=== PATIENT | male | born 1940 | race Caucasian/White ===

== ENCOUNTER 2017-07-19 11:04 | Inpatient (IN) | payer MEDICARE ==
[2017-07-19 11:37] LABS: #Basophils 0.1 thou/uL (0.0-0.2); #Eosinphils 0.1 thou/uL (0.0-0.7); #Neutrophils 8.7 thou/uL (1.40-6.50); %Basophils 0.7 % (0.0-1.0); %Eosinophils 0.5 % (0.0-10.0); %Monocytes 9.3 % (0.0-10.0); %Neutrophils 80.6 % (42.0-75.0); Hemoglobin 11.1 g/dL (14.0-18.0); Mean Corpuscular Hemoglobin 31.9 pg (27.0-31.0); Mean Corpuscular Volume 96.8 fl (80.0-94.0); Platelet Count 179 thou/uL (130-400); RBC Distribution Width 13.2 % (11.5-14.5); Red Blood Cell (RBC) Count 3.46 mill/uL (4.70-6.10); White Blood Cell (WBC) Count 10.8 thou/uL (4.8-10.8)
[2017-07-19 11:50] LABS: ALT (SGPT) 16 U/L (8-55); AST (SGOT) 15 U/L (5-34); Albumin 4.2 g/dL (3.4-4.8); Alkaline Phosphatase 56 U/L (40-150); Anion Gap 16 mmol/L (10-20); BUN (Urea Nitrogen) 19 mg/dL (8.4-25.7); Bilirubin, Total 1.5 mg/dL (0.2-1.2); Calc. Creatinine Clearance 0 mL/min (70-130); Calcium 9.9 mg/dL (7.8-10.44); Carbon Dioxide 26 mmol/L (23-31); Chloride 102 mmol/L (98-107); Estimated GFR-MDRD 60; Globulin 2.7 g/dL (2.4-3.5); Glucose 166 mg/dL (83-110); Lipase 34 U/L (8-78); Potassium 3.7 mmol/L (3.5-5.1); Protein, Total 6.9 g/dL (5.8-8.1); Sodium 140 mmol/L (136-145)
[2017-07-19 11:53] LABS: CKMB 0.7 ng/mL (0-6.6); Troponin I 0.021 ng/mL (< 0.028)
--- NOTE | 2017-07-19 12:40 | RAD ---
CHEST ONE VIEW HISTORY: Chest pain. COMPARISON: 12/20/2016 FINDINGS: Cardiac silhouette is magnified by projection and upper limits of normal in size. Pulmonary vasculat ure is more engorged than on the prior study with worsening reticular nodular interstitial prominence . Mediastinum is midline with postoperative changes. No lobar consolidation or pneumothorax are rio arent. 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 IMPRESSION: Worsening congestive heart failure. POS: [facility]
[2017-07-19] MEDS ORDERED: Furosemide 40 MG/4 ML VIAL ONE (13:15)
[2017-07-19 14:33] LABS: INR-International Normal Ratio 1.1; PTT 33.1 SEC (22.9-36.1); Prothrombin Time 14.1 SEC (12.0-14.7)
--- NOTE | 2017-07-19 14:45 | CT ---
NONCONTRAST HEAD CT: History: 30 minute onset of facial droop, left sided. Difficulty speaking. Comparison: None. Technique: Noncontrast head CT is performed from the skull base to the skull vertex. FINDINGS: No parenchymal hemorrhage. No extraaxial hematoma. Basilar cisterns are patent. Brain volume is age appropriate. Cortical holley white matter differentiation is preserved. Ventricles and sulci are patent and symmetric. Periventricular white matter hypodensity due to chronic small vessel ischemic change is noted. Adequate aeration of the right mastoid air cells. Adequate aeration of the paranasal sinuses. Calvari um is intact. Cavernous carotid atherosclerosis is noted. IMPRESSION: No acute intracranial process. No large territory infarct. No evidence of hemorrhage. Results of study discussed with Dr. Wesley 07-19-17 at 2:37 p.m. POS: [facility]
--- NOTE | 2017-07-19 15:33 | CT ---
CT ANGIOGRAM OF HEAD: Date: 07/19/17 HISTORY: Left-sided weakness involving the arm and leg. Left facial droop. Symptoms x30 minutes. COMPARISON: None. TECHNIQUE: CT angiogram of the head is performed in the axial plane. Sagittal and coronal three-dimensional refo rmatted images are submitted for interpretation. FINDINGS: Minimal disease of the right maxillary sinus and left sphenoid sinus. There is partial opacification of the right mastoid air cells. Visualized brain parenchyma is unremarkable. Cortical holley-white matter differentiation is preserved. There is no pathologic enhancement of the brain parenchyma. Visualized upper neck and facial soft tissue structures are unremarkable. Bilateral ocular lenses are appropriately located. Both globes are intact. Retrobulbar fat is preserv ed. Symmetric attenuation of the optic nerves and ocular rectus muscles. No evidence of hydrocephalus. Evaluation for subarachnoid hemorrhage is limited due to the presence o f intra-arterial contrast. CT ANGIOGRAM: Distal cervical and intracranial internal carotid arteries have symmetric enhancement and luminal carolyn meter. There is some atherosclerotic disease involving the right internal carotid artery, incompletel y evaluated. Refer to separate CT angiogram neck report for further details. There is mild atherosclerosis involving both cavernous and left paraclinoid segment. No associated hi gh grade stenosis. Anterior Circulation; There is symmetric enhancement and luminal diameter of the M1 segment. 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 Both A2 segments are symmetri c. Patent anterior communicating artery is identified. Proximal MCA branches are symmetric. Posterior Circulation: The left vertebral artery is dominant. Both vertebral arteries supply a normal appearing basilar gwen ry. The valuation of both PICA artery origins is limited. The left and right P1 segments have symmetr ic enhancement and luminal diameter. IMPRESSION: Unremarkable CT angiogram of the [place]. Results of the CT angiogram of the neck, as well as CT angiogram of head were conveyed to Dr. Chriss partida 07/19/17 at 1513 hours. CODE CR. POS: [facility]
--- NOTE | 2017-07-19 16:10 | CT ---
CT ANGIOGRAM OF THE NECK: Date: 07-19-17 Comparison: None. History: Left sided weakness. Technique: Serial axial CT imaging at 1.0 mm intervals from the thoracic inlet through the skull base with IV co ntrast. Coronal and sagittal 3D reformatted imaging obtained. FINDINGS: Motion limits detailed assessment of the upper lung apices. There is small volume posterior pleural f luid noted in bilateral lung apices. There is an avarant origin of the right subclavian artery, incom pletely imaged on this examination. The intracranial arterial structures are not evaluated on this examination. Please see separately dic tated dedicated CT angiogram of the head. The imaged paranasal sinuses/mastoid air cells demonstrate a few nonspecific opacified mastoid air cells bilaterally as well as mild polypoid mucosal thickening of the alveolar recess on the right. Retroantral fat and the parapharyngeal fat appears clear bilaterally. The parotid and submandibular glands appear grossly unremarkable. No discrete aerodigestive tract lesion is noted. There is a hypodense nodule in the posterior aspect of the left lobe of the thyroid gland measuring 1.6 cm. No lymphadenopathy is noted. Streak artifact and motion limits detailed assessment at the origin of bilateral vertebral arteries. Both vertebral arteries appear patent and grossly unremarkable, the right vertebral artery hypoplasti c and the left vertebral artery dominant. There is no significant stenosis involving the common or internal carotid artery on either side. Ther e is mild scattered atherosclerotic calcification involving the internal carotid artery bilaterally, with no associated hemodynamically significant stenosis on the basis of NASCET criteria. Osseous structures demonstrate significant cervical spine degenerative change, including disc space n arrowing, with posterior osteophyte formation at C5-6 and multilevel bilateral facet and uncal verteb ral osteophyte formation, right greater than left. No worrisome lytic or blastic bone lesion. IMPRESSION: 1. No hemodynamically significant stenosis on the basis of NASCET criteria seen involving either comm on or internal carotid artery. 2. Incidental findings as detailed above, including a hypodense thyroid nodule on the left, for which dedicated thyroid ultrasound is advised. Code T POS: [facility]
[2017-07-19] MEDS ORDERED: Iopamidol 370 76% 100 ML VIAL ONE (17:07)
[2017-07-19] MEDS ORDERED: niCARdipine 20MG in NaCl 200 ML BAG IVPB PRN (17:28)
[2017-07-19] MEDS ORDERED: Bisacodyl 10 MG SUPP PR PRN (17:28)
[2017-07-19] MEDS ORDERED: Mag-Al 1200 mg/1200 mg/30 ML UDCUP PO PRN (17:28)
[2017-07-19] MEDS ORDERED: Docusate 100 MG CAP PO PRN (17:28)
[2017-07-19] MEDS ORDERED: Milk Of Magnesia 30 ML UDCUP PO PRN (17:28)
[2017-07-19] MEDS ORDERED: Dextrose 50% Abboject 50 ML SYRINGE SLOW IVP PRN (17:54)
[2017-07-19] MEDS ORDERED: Dextrose 5% in Water 1,000 ML IV PRN (17:54)
[2017-07-19] MEDS ORDERED: Furosemide 40 MG/4 ML VIAL SLOW IVP SCH (18:30)
[2017-07-19] MEDS ORDERED: niCARdipine HCl 25 MG in Sodium Chloride 0.9% 250 ML 240 ML IVPB PRN (18:45)
[2017-07-19] MEDS ORDERED: niCARdipine HCl 25 MG in Sodium Chloride 0.9% 250 ML 240 ML IVPB SCH (18:45)
--- NOTE | 2017-07-19 18:46 | HP ---
PRIMARY CARE PROVIDER: Cassie Lynn M.D. CHIEF COMPLAINT: Weakness. HISTORY OF PRESENT ILLNESS: Mr. Melina Jr is a pleasant 77-year-old gentleman, who was seen at [facility] on 07/19/2017 following transfer from [facility]. He initially presented to the emergency room complaining of shortness of breath. He told the m that he has been having difficulty sleeping because of shortness of breath. The patient was report edly unable to eat last night and today because he was not feeling well. He also reported some chest discomfort and generalized weakness as well as cough. The patient was managed in the emergency room, and decision was made to admit him to the hospital for further management of congestive heart failure. Following that, he developed left-sided weakness. He received tPA after discussion with Neurology. He was then transferred to the Critical Care Unit a [facility]. REVIEW OF SYSTEM: The following complete review of systems was negative, unless otherwise mentioned in the HPI or below: Constitutional: Weight loss or gain, sense of well-being, ability to conduct usual activities, exerc ise tolerance. Skin/Breast: Rash, itching, changes in hair growth or loss, nail changes, breast lumps, tenderness, swelling, nipple discharge. Eyes: Vision, double vision, tearing, blind spots, pain. ENT/Mouth: Headaches (location, time of onset, duration, precipitating factors), vertigo, lightheade dness, injury. Vision, double vision, tearing, blind spots, pain, nose bleeding, colds, obstruction, discharge, dental difficulties, gingival bleeding, dentures, neck stiffness, pain, tenderness, masses in thyroid or other areas Cardiovascular: Precordial pain, substernal distress, palpitations, syncope, dyspnea on exertion, or thopnea, nocturnal paroxysmal dyspnea, edema, cyanosis, hypertension, heart murmurs, varicosities, ph lebitis, claudication. Respiratory: Pain, shortness of breath, wheezing, stridor, cough, hemoptysis, fever or night sweats. Gastrointestinal: Poor appetite, dysphagia, indigestion, abdominal pain, heartburn, eructation, naus ea, vomiting, hematemesis, jaundice, constipation, or diarrhea, abnormal stools (vika-colored, tarry, bloody, greasy, foul smelling), flatulence, hemorrhoids, recent changes in bowel habits. Genitourinary: Urgency, frequency, dysuria, nocturia, hematuria, polyuria, oliguria, unusual (or nirmala nge in) color of urine, stones, hesitancy, change in size of stream, dribbling, acute retention or in continence, libido, potency. Musculoskeletal: Pain, swelling, redness or heat of muscles or joints, limitation, of motion, muscular weakness, atrophy, cramps. Neurologic/Psychiatric: Convulsions, paralyses, tremor, incoordination, paresthesias, difficulties w ith memory of speech, sensory or motor disturbances, or muscular coordination (ataxia, tremor), emoti onal problems, anxiety, depression, previous psychiatric care, unusual perceptions, hallucinations. Allergy/Immunologic: Skin rash, anemia, bleeding tendency, polydipsia, polyuria, intolerance to heat or cold. PAST MEDICAL HISTORY: Significant for diastolic congestive heart failure, hypertension, diabetes chloe litus type 2, COPD, coronary artery disease, status post cardiac stent placement, chronic kidney dise ase stage 2, and dyslipidemia. PAST SURGICAL HISTORY: Significant for cardiac stent, coronary artery bypass graft, appendectomy, ch olecystectomy, bilateral cataract removal, polypectomy. FAMILY HISTORY: Patient's uncle had myocardial infarction in his 50s. SOCIAL HISTORY: No history of tobacco use, alcohol use, or recreational drug use. ALLERGIES: No known drug allergies. CURRENT MEDICATIONS: Include Lasix 40 mg daily, potassium chloride 10 mEq 2 times a day, Januvia 50 mg daily, Crestor 20 mg daily, Theragran 1 tablet daily, Toprol-XL 200 mg daily, metformin 1000 mg 2 times a day, lisinopril 20 mg 2 times a day, isosorbide mononitrate 30 mg 2 times a day, Flonase p.r. n., albuterol inhalation p.r.n., Effient 10 mg daily, aspirin 81 mg daily, MiraLax 17 grams daily as needed, Coenzyme Q10 100 mg daily, Zyrtec 10 mg daily, glyburide 2.5 mg 2 times a day, Systane eyedro ps as needed, Centrum Silver 1 tablet daily, Dexilant 30 mg daily, Zetia 10 mg daily, extra strength Tylenol 1000 mg every 6 hours as needed, Apresoline 50 mg 3 times a day, Lomotil as needed, Symbicort 1 puff 2 times a day, loratadine 10 mg daily, Ranexa 1000 mg 2 times a day, Linzess 145 mcg daily, a nd amlodipine 5 mg daily. CODE STATUS: I could not discuss code status because it was difficult to hold a conversation with Mr Vivi Summers. PHYSICAL EXAMINATION: GENERAL: Mr. Summers is awake and alert, not in acute distress. VITAL SIGNS: Blood pressure is 146/63, pulse is 78. He is breathing at rate of 20 and saturating 88 % on room air. EYES: No scleral icterus. No conjunctival pallor. ENT: Moist mucosal membranes, no oropharyngeal erythema or exudates. NECK: Supple, nontender, no thyromegaly. Trachea is midline. RESPIRATORY: Accessory muscles of breathing are not active. Chest wall movements are symmetric bila terally. Lung examination reveals bibasilar crackles. CARDIOVASCULAR: S1 and S2 are heard, regular. Peripheral pulses palpable. No carotid bruit, no per icardial rub. ABDOMEN: Soft, nontender, bowel sounds heard, no hepatomegaly, no splenomegaly. 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 Tongue deviates to th e left. He has hemiplegia on the left upper and lower extremities. Deep tendon reflexes are brisk o n the left side. Plantar reflexes equivocal on the left, downgoing on the right. MUSCULOSKELETAL: Left-sided hemiplegia. Power is 5/5 in the right upper and lower extremities. LYMPHATIC: No cervical lymphadenopathy. SKIN: No rashes or subcutaneous nodules. He has bilateral lower extremity edema. PSYCHIATRIC: The patient appears anxious, oriented to person, place, and time. LABORATORY DATA: Mr. Summers's labs and investigations were reviewed. I reviewed his electrocardio gram, which showed atrial fibrillation with controlled ventricular response. I also reviewed his [facility] st x-ray, which showed pulmonary vascular congestion and interstitial edema. CT scan of the brain do ne without contrast did not reveal any acute intracranial processes. CT [place] angiography with contrast was unremarkable. CT angiogram of the neck did not reveal any hemodynamically signifi cant stenosis in either common or internal carotid artery. He had a hypodense thyroid nodule on the left, for which the radiologist recommends dedicated thyroid ultrasound. Laboratory investigation sh ow a normal white count, macrocytic anemia with hemoglobin of 11.1, normal platelet count, INR 1.1, u nremarkable comprehensive metabolic profile, except for a mildly elevated total bilirubin of 1.5, armen vated BNP of 572.1, and normal troponin I. ASSESSMENT AND PLAN: Mr. Melina Jr is a pleasant 77-year-old gentleman, who was seen at [facility] on 07/19/2017. His problem list includes: 1. Acute cerebrovascular accident. Mr. Summers is presenting with acute cerebrovascular accident. He is receiving tPA. He will be admitted to the hospital for further management. No blood draws fo r 24 hours. We will start him on aspirin after the 24-hour period. Neurology service will be consul miriam for help with further management. I will request 2D echocardiogram and MRI of the brain. 2. Congestive heart failure exacerbation: Patient has a history of diastolic congestive heart failu re. He will be treated with intravenous diuretics. 3. Diabetes mellitus. Continue patient's home medications while the doses are clarified, start Accu -Cheks and insulin sliding scale. 4. Hypertension: Monitor vital signs, titrate antihypertensives as needed. 5. Chronic obstructive pulmonary disease. Continue bronchodilators. 6. Dyslipidemia: Continue statins. Many thanks for allowing me to participate in your patient's care. Please feel free to contact me wi th any questions or concerns. LEVEL OF RISK: High. LEVEL OF COMPLEXITY: High. ADDENDUM: Mr. Melina Cantor also appears to have new onset atrial fibrillation. I reviewed his old records and could not find any documented evidence of atrial fibrillation. We will await Cardiology Service.
[2017-07-19] MEDS: Labetalol HCl 100 MG/20 ML VIAL SLOW IVP PRN (21:43)
--- NOTE | 2017-07-19 23:38 | CON ---
DATE OF CONSULTATION: 07/19/2017 REFERRING PROVIDER: Dr. Bhavesh Chambers. REASON FOR CONSULTATION: Acute onset left-sided weakness and dysarthria. HISTORY OF PRESENT ILLNESS: Mr. Summers is a pleasant 77-year-old male who has been shana rned for evaluation of left-sided weakness and dysarthria. Apparently, the patient has not been feel ing well over the past 1-2 days. He was having difficulty with breathing and chest discomfort. For this reason, he had gone to the [facility] in where he was evaluated. It was felt that he wa s in a CHF exacerbation. While over there, he had developed sudden onset of left-sided weakness and dysarthria for which stroke alert was initiated. ER physician had called and discussed the case with me and I have recommended for him to start on IV tPA. He had met all the inclusion and exclusion cr iteria for the tPA. CT scan was negative in the ER. Currently, he reports of having some improvemen t in his left lower extremity. He continues to have weakness in the left upper extremity. He also c ontinues to have slurred speech. He denies headache, chest pain, palpitation, nausea, vomiting, abdo jaime pain, lightheadedness, or dizziness. PAST MEDICAL HISTORY: Significant for hypertension, congestive heart failure, diabetes, COPD, hop[place] ry artery disease, cardiac stent placement, chronic kidney disease stage 2, and dyslipidemia. PAST SURGICAL HISTORY: Significant for cardiac stent placement, coronary artery bypass graft, append ectomy, cholecystectomy, bilateral cataract surgery, and polypectomy. FAMILY HISTORY: None significant. SOCIAL HISTORY: He denies smoking, alcohol use, or illicit drug use. He is . CURRENT MEDICATIONS: Please review MAR. ALLERGIES: No known drug allergies. REVIEW OF SYSTEMS: As mentioned above in the HPI, otherwise negative. PHYSICAL EXAMINATION: VITAL SIGNS: Blood pressure of 174/84, pulse of 85, temperature of 99.6, respiration of 23, O2 sats of 93% on room air. GENERAL: Well-developed, well-nourished male in no apparent distress. RESPIRATORY: Clear to auscultation bilaterally. CARDIOVASCULAR: Regular rate and rhythm. NEUROLOGIC: Mental status: The patient is awake, alert, oriented x3. Speech and language: Mildly dysarthric speech noted. Cranial nerves: Pupils are 3 mm and reactive. Visual linn: He does not blink to threat on the left side. Extraocular muscles are intact. No nystagmus is noted. There is a left facial droop noted. Tongue and uvula are midline. Motor exam showed flaccid left upper and left lower extremity. His strength in the left upper extremity is 0/5, strength in the left lower ex tremity is 2/5. Sensory: Sensation appears intact and symmetric. Deep tendon reflexes 1+ reflex in both upper and lower extremities. Babinski: Plantar responses extensor on the left, flexion on the right. Gait and Romberg coordination could not be tested. LABORATORY DATA: Reviewed, which included CBC, CMP, coag panel, CK-MB, troponin, BNP which is signif icant for hemoglobin of 11.1, hematocrit of 33.5. BNP of 572.1 otherwise negative. IMAGING STUDIES: CT head without contrast was reviewed which showed no acute intracranial abnormalit y. CT angiogram of the head was reviewed which showed no acute intracranial vascular abnormality. IMPRESSION: 1. Right middle cerebral artery distribution ischemic infarct. 2. Left-sided weakness, due to #1. 3. Dysarthria, due to #1. 4. Hypertension. ASSESSMENT AND PLAN: Mr. Summers is a pleasant 77-year-old male who presented with conges tive heart failure exacerbation and was noted to have sudden onset of left-sided weakness and dysarth rashaad. After discussing the case with the ER physician, I had initiated IV tPA. Since his CT angiogra m did not show any intracranial vascular abnormality, he was not a candidate for any endovascular th erapy. At this time, I will recommend admitting her to the Critical Care Unit for close observation. I will recommend consulting PT, OT, Speech Therapy. He needs to be n.p.o. until further cleared by Speech Therapy. I would recommend holding off on all the antiplatelet or anticoagulation therapy fo r at least 24 hours post-tPA. Obtain MRI brain without contrast in the morning. Obtain echocardiogr am and lipid profile in the morning. Monitor for any acute neurological changes over the next 24 mich rs. I have discussed the findings with the patient's and explained the current treatment plan. She voiced her understanding. Thank you for your consultation.
[2017-07-20] MEDS: Furosemide 40 MG/4 ML VIAL SLOW IVP SCH ×2 (05:16→14:35)
--- NOTE | 2017-07-20 09:59 | PDOC.PN ---
- Subjective Encounter Start Date: 07/20/17 Encounter Start Time: 10:45 Subjective: Patient with persisent weakness on left side of body. Breathing well on -: oxygen. No LION. No bleeding. - Objective Resuscitation Status: Resuscitation Status DNR:Do Not Resuscitate MAR Reviewed: Yes Vital Signs & Weight: Vital Signs (12 hours) Temp Pulse Resp Pulse Ox 07/20/17 09:00 98.7 F 07/20/17 08:00 98.7 F 88 22 H 98 07/20/17 07:17 100 07/20/17 04:00 98.2 F 07/20/17 01:25 97 07/20/17 00:00 98.5 F Weight Weight 226 lb 12.8 oz Most Recent Monitor Data Heart Rate from ECG 82 NIBP 169/86 NIBP BP-Mean 108 Respiration from ECG 23 SpO2 95 I&O: 07/19/17 07/20/17 07/21/17 06:59 06:59 06:59 Intake Total 0 0 Output Total 2770 450 Balance -2770 -450 Result Diagrams: 07/19/17 11:29 07/19/17 11:29 Additional Labs: Accuchecks 07/19/17 14:42 POC Glucose 139 H Phys Exam - Physical Examination Constitutional: NAD HEENT: moist MMs Respiratory: no wheezing, no rales, no rhonchi Cardiovascular: RRR, no significant murmur Gastrointestinal: soft, positive bowel sounds left facial droop, LUE with minimal movement, LLE moves toes, 2/5 in thigh Psychiatric: normal affect, A&O x 3 Dx/Plan (1) Acute ischemic stroke Code(s): I63.9 - CEREBRAL INFARCTION, UNSPECIFIED Status: Acute Comment: s/ p TPA on 07/19/2017 (2) Diastolic CHF, acute on chronic Code(s): I50.33 - ACUTE ON CHRONIC DIASTOLIC (CONGESTIVE) HEART FAILURE Status : Acute (3) DM type 2 (diabetes mellitus, type 2) Status: Chronic Qualifiers: Diabetes mellitus complication status: with hyperglycemia (4) COPD (chronic obstructive pulmonary disease) Status: Chronic (5) Hypertension Code(s): I10 - ESSENTIAL (PRIMARY) HYPERTENSION Status: Chronic (6) Dyslipidemia Code(s): E78.5 - HYPERLIPIDEMIA, UNSPECIFIED Status: Chronic - Plan cont current plan of care continue IV diuretics, safe to move to stroke floor, resume anticoagulants -: when ok with neurology * . - Discharge Day Encounter end time: 11:15
--- NOTE | 2017-07-20 10:21 | CON ---
DATE OF CONSULTATION: 07/20/2017 REASON FOR CONSULTATION: Critical care management. HISTORY OF PRESENT ILLNESS: The patient is a 77-year-old male, who was admitted to the [facility] yesterday. He was initially seen in the Emergency Room for shortness of breath, but then deve loped left-sided hemiparesis and dysarthria. The patient received TPA, but did not have resolution o f the symptoms. He was placed in the CCU for further observation. This morning, he is able to verba lize, but he is very hard to understand, because of dysarthria. He is not having any chest pain or s hortness of breath at this time. He is completely incapable of moving his left arm, but can move his left leg a little. PAST MEDICAL HISTORY: 1. Diastolic cardiac dysfunction. 2. Hypertension. 3. Diabetes mellitus, type 2. 4. Chronic obstructive pulmonary disease. 5. Coronary artery disease. 6. Coronary stent placement. 7. Chronic kidney disease, stage 2. 8. Hyperlipidemia. PAST SURGICAL HISTORY: 1. Coronary stent placement. 2. Coronary artery bypass grafting surgery. 3. Appendectomy. 4. Cholecystectomy. 5. Bilateral cataract removal. 6. Polypectomy. FAMILY MEDICAL HISTORY: Remarkable for heart disease. SOCIAL HISTORY: Does not smoke, does not consume alcohol, does not use recreational drugs. He is re tired; he formerly worked in [employer]. ALLERGIES: None. MEDICATIONS: Prior to admission, these were reviewed on the chart and include Lasix, potassium, Ayo via, Crestor, Theragran M, Toprol-XL, metformin, lisinopril, isosorbide, Flonase, albuterol, Effient, aspirin, MiraLax, Coenzyme Q10, Zyrtec, glyburide, Systane eye drops, Centrum, Dexilant, Zetia, Apre soline, Lomotil, Symbicort, loratadine, Ranexa, Linzess, and amlodipine. CODE STATUS: He is DNR. REVIEW OF SYSTEMS: He has had no chest pain, hematemesis, melena, hematochezia, hematuria, or dysuri a. PHYSICAL EXAMINATION: VITAL SIGNS: Temperature 98.2, pulse 82, blood pressure 165/88, O2 sat 97%. GENERAL: He is awake and alert and in no distress. HEENT EXAM: Unremarkable. NECK: Without adenopathy or JVD. LUNGS: Have a few crackles bilaterally. CARDIOVASCULAR: S1, S2 regular, without murmur. ABDOMEN: Soft, nontender, nondistended. EXTREMITIES: No clubbing, cyanosis, or edema. NEUROLOGIC EXAM: He is completely immobile in his left arm. He has 2/5 muscle strength in his left leg. He has full muscle strength in his right arm and right leg. He has sensation intact in his lef t arm and left leg and full sensation otherwise throughout the body. LABORATORY DATA: White blood cell count 10.8, hematocrit 33.5, platelet count 179. INR 1.1. Sodium 140, potassium 3.7, chloride 102, CO2 of 26, BUN 19, creatinine 1.2, glucose 166. BNP 572. His dusty st x-ray at the time of admission showed diffuse congestion. ASSESSMENT: 1. Cerebrovascular accident -- has a right middle cerebral artery infarct. 2. Congestive heart failure -- acute diastolic. 3. Multiple other medical problems as listed above. PLAN: I believe he can be safely transferred to the stroke unit for further evaluation. We will shauna it the opinion of Cardiology. He is having anticoagulation withheld at the advice of Dr. Argueta. Base d on that, I will withhold the enoxaparin and the aspirin until he is cleared to restart. Sequential compression devices will be applied.
[2017-07-20] MEDS ORDERED: Loratadine 10 MG TAB PO PRN (11:24)
[2017-07-20] MEDS ORDERED: Polyethylene Glycol 3350 17 GM Packet PO PRN (11:24)
[2017-07-20] MEDS ORDERED: Fluticasone Propionate Nasal Spray 16 gm Bottle NASAL PRN (11:24)
[2017-07-20] MEDS ORDERED: PROVENTIL INHALER 6.7 G (200 INHALATIONS) INH PRN (11:24)
--- NOTE | 2017-07-20 16:18 | PRG ---
DATE OF SERVICE: 07/20/2017 SUBJECTIVE: Mr. Summers is a pleasant 77-year-old male who presented with the acute onset left-sided weakness. He is now status post IV TPA. He reports of no significant change in his stre ngth of the left upper and left lower extremity. He has noted some improvement in his speech and swa llowing. He denies any headache, chest pain, palpitation, lightheadedness or dizziness. PHYSICAL EXAMINATION: VITAL SIGNS: Blood pressure 153/77, pulse of 86, temperature of 98.2, respirations of 21, O2 sats of 95% on room air. GENERAL: Well-developed, well-nourished male in no apparent distress. RESPIRATORY: Clear to auscultation bilaterally. CARDIOVASCULAR: Regular rate and rhythm. NEUROLOGIC: Essentially unchanged. IMPRESSION: 1. Acute right middle cerebral artery distribution ischemic infarct. 2. Left-sided weakness, due to #1. 3. Hypertension. ASSESSMENT AND PLAN: Mr. Summers is a pleasant 77-year-old male who presented with an acu te onset left-sided weakness. He is now status post IV TPA. At this time, I would recommend continu ing supportive care. Continue physical, occupational, and speech therapies. The patient can be star miriam on Plavix 75 mg daily after the 24 hours completion of IV TPA. The patient is okay to be transfe rred to the stroke unit. We will await the results of the MRI. Thank you for your consultation.
[2017-07-20] MEDS: metFORMIN 500 MG TAB PO SCH (17:40)
[2017-07-20] MEDS: Potassium Chloride 10 MEQ TAB PO SCH (18:13)
--- NOTE | 2017-07-20 19:46 | MRI ---
EXAM: BRAIN MRI WITHOUT CONTRAST 07/20/17 HISTORY: Evaluate for stroke. Left sided facial droop and slurred speech. Status post TPA. COMPARISON: None. TECHNIQUE: Brain MRI is performed without intravenous gadolinium administration. Multisequential, multiplanar im aging is performed. FINDINGS: There is evidence of focal effacement with T2 and FLAIR hyperintensity involving the posterior right frontal lobe and right temporal lobe. On the axial gradient echo sequence, there is evidence of hypoi ntensity suggesting hemorrhage. There is no corresponding hyperintensity on the T1 weighted images. D ifferential considerations include petechial hemorrhage versus hyperacute parenchymal hemorrhage. Rep eat noncontrast head CT is recommended. There is evidence of restricted diffusion in the aforemention ed area of T2 and FLAIR hyperintensity, compatible with an acute right MCA distribution infarction. A dditional areas of restricted diffusion are not appreciated. There are T2 and FLAIR white matter hyperintensity due to chronic small vessel ischemic change. No hy drocephalus. Brain volume is age appropriate. IMPRESSION: 1. Acute right MCA distribution infarction. 2. Gradient echo sequence hypointensity in the region of infarct which may represent macroscopic hemorrhage versus petechial hemorrhage. Noncontrast head CT is recommended. Results of the study discussed with Dr. Bhavesh Chambers, 07/20/17 at 5:01 p.m. Code CR POS: LAVON
[2017-07-20] MEDS: Mometasone/Formoterol 120 PUFF INHALER INH SCH (19:49)
[2017-07-20 19:53] LABS: #Eosinphils 0.1 thou/uL (0.0-0.7); #Lymphocytes 1.6 thou/uL (1.20-3.40); #Neutrophils 7.1 thou/uL (1.40-6.50); %Basophils 0.3 % (0.0-1.0); %Eosinophils 0.9 % (0.0-10.0); %Neutrophils 72.8 % (42.0-75.0); Hemoglobin 13.3 g/dL (14.0-18.0); Mean Corpuscular Hemoglobin 33.4 pg (27.0-31.0); Mean Corpuscular Volume 98.2 fl (80.0-94.0); Mean Platelet Volume 7.5 fL (7.4-10.4); Platelet Count 202 thou/uL (130-400); RBC Distribution Width 13.8 % (11.5-14.5); Red Blood Cell (RBC) Count 3.98 mill/uL (4.70-6.10); White Blood Cell (WBC) Count 9.8 thou/uL (4.8-10.8)
[2017-07-20] MEDS ORDERED: Enoxaparin Sodium 40 MG/0.4 ML SYRINGE SC SCH (21:00)
[2017-07-20] MEDS ORDERED: Non-Formulary Item 1 EACH (Budesonide-Formoterol [Symbicort 160-4.5] 1 PUFF) INH SCH (21:00)
[2017-07-20] MEDS ORDERED: Lisinopril 10 MG TAB PO SCH (21:00)
[2017-07-20] MEDS ORDERED: Aspirin 325 mg Enteric Coated Tablet PO SCH (21:00)
--- NOTE | 2017-07-20 21:44 | CT ---
CT BRAIN 07/20/17 PROVIDED CLINICAL HISTORY: Possible bleed seen on MRI. FINDINGS: Comparison is made with the CT examination 07/19/17 and the brain MRI performed earlier same date. Within the right posterior frontal white matter and extending to involve the cortical and subcortical adjacent regions with an area of diminished attenuation that is in the same location as the restrict ed diffusion seen on the recent MRI and compatible with an acute infarction. This change is interval with respect to the 07/19/17 CT brain. There is a focal area of CT density which is increased with re spect to the peripheral hypodensity in this area of infarction but essentially isointense with respec t to the remaining adjacent cerebral white matter. Given that there is blooming in this region presen t on the gradient echo sequence from the MRI, this likely reflects petechial/microhemorrhage related to the infarction. The ventricular system remains normal in size and morphology. No additional signif icant interval change with respect to the prior exam is evident. IMPRESSION: Findings compatible with the known acute infarction in the right posterior frontal region. Blooming s een in this region on the gradient echo sequence from MRI done earlier today likely reflects petechia l/microhemorrhage. There is no evidence for a well formed intraparenchymal hematoma at this time. Fol lowup CT examination in 12 hours may be useful to assessment for temporal evolution. POS: LAVON
--- NOTE | 2017-07-20 21:44 | CON ---
CARDIOLOGY CONSULTATION NOTE DATE OF CONSULTATION: 07/20/2017 REASON FOR CONSULTATION: Recent stroke. 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 Marie. HISTORY OF PRESENT ILLNESS: Mr. Waldo Summers is a very pleasant gentleman with a long history of coronary artery disease. He has undergone multiple procedures with multiple stent implantations and also had bypass surgery. Please see the chart for full details on his coronary artery disease. The patient was admitted to the hospital on 07/19/2017 with acute onset of left-sided weakness, found to have a stroke. He did receive TPA. REVIEW OF SYSTEMS: Constitutional: No significant weight gain or loss. Vision: No changes. Heari ng: No changes. Pulmonary: No cough or wheezing. Cardiac: No chest pain or pressure. Gastrointe stinal: No nausea, vomiting or diarrhea. Skin: No rashes. Neurologic: No unilateral weakness or numbness. Psychiatric: No unusual depression or anxiety. PAST MEDICAL HISTORY: 1. Coronary artery disease, multiple stents implanted. 2. Previous history of bypass. 3. Chronic kidney disease stage 2. PAST SURGICAL HISTORY: Previous stenting and coronary artery bypass grafting. FAMILY HISTORY: Myocardial infarction in the 50s in an uncle. SOCIAL HISTORY: No alcohol or tobacco. MEDICATIONS: Prior to admission; 1. Lasix. 2. Potassium. 3. Januvia. 4. Crestor. 5. Toprol-XL. 6. Lisinopril. 7. Isosorbide. 8. Flonase. 9. Effient. 10. Aspirin. 11. Dexilant. It is also noted that he has had paroxysmal atrial fibrillation noted in the past. PHYSICAL EXAMINATION: GENERAL: This is a pleasant elderly gentleman in no distress, not moving the left side. VITAL SIGNS: Blood pressure 168/98 and pulse 86 regular. EYES: Sclerae nonicteric. MOUTH: Mucous membranes moist. NECK: Supple. No lymphadenopathy. LUNGS: Clear. No wheezing, rales or rhonchi. CARDIOVASCULAR: Normal S1, normal S2. There is no murmur, rub or gallop. ABDOMEN: Soft and nontender. EXTREMITIES: No clubbing, no cyanosis, no edema. NEUROLOGIC: Not moving the left side. LABORATORY AND X-RAY FINDINGS: CT shows ischemic stroke with what appears to be some micro-hemorrhag e. ASSESSMENT: 1. Stroke, suspected embolic, some previous history of atrial fibrillation. 2. Some microscopic bleeding; therefore, cannot be anticoagulated at this time. 3. Hypertension. 4. Coronary artery disease. PLAN: Resume some of the blood pressure medicines. We will reinstitute Dr. Marie to the patient tomorrow.
[2017-07-21] MEDS: Labetalol HCl 100 MG/20 ML VIAL SLOW IVP PRN (05:18)
[2017-07-21] MEDS: Furosemide 40 MG/4 ML VIAL SLOW IVP SCH ×2 (05:25→15:31)
[2017-07-21] MEDS: Mometasone/Formoterol 120 PUFF INHALER INH SCH ×2 (06:23→19:00)
[2017-07-21 06:37] LABS: #Eosinphils 0.1 thou/uL (0.0-0.7); #Lymphocytes 1.5 thou/uL (1.20-3.40); #Monocytes 1.4 thou/uL (0.11-0.59); #Neutrophils 9.3 thou/uL (1.40-6.50); %Basophils 0.3 % (0.0-1.0); %Eosinophils 0.6 % (0.0-10.0); %Lymphocytes 11.9 % (21.0-51.0); %Monocytes 11.1 % (0.0-10.0); %Neutrophils 76.2 % (42.0-75.0); Hemoglobin 13.7 g/dL (14.0-18.0); Mean Corpuscular HGB CONC 32.6 g/dL (32.0-36.0); Mean Corpuscular Hemoglobin 31.8 pg (27.0-31.0); Mean Corpuscular Volume 97.7 fl (80.0-94.0); Mean Platelet Volume 8.3 fL (7.4-10.4); Platelet Count 186 thou/uL (130-400); RBC Distribution Width 13.8 % (11.5-14.5); White Blood Cell (WBC) Count 12.2 thou/uL (4.8-10.8)
[2017-07-21] MEDS: HumaLOG 300 UNITS/3 ML VIAL SC PRN (06:40)
[2017-07-21 06:57] LABS: Anion Gap 18 mmol/L (10-20); BUN (Urea Nitrogen) 18 mg/dL (8.4-25.7); Calc. Creatinine Clearance 80 mL/min (70-130); Calcium 10.2 mg/dL (7.8-10.44); Carbon Dioxide 23 mmol/L (23-31); Cardiac Risk 4.5 (Less than 4.5); Chloride 102 mmol/L (98-107); Cholesterol 150 mg/dl (< 200 Desired); Estimated GFR-MDRD 61; Glucose 215 mg/dL (83-110); HDL Cholesterol 33 mg/dL (>60 Neg Risk); LDL Cholesterol, Calculated 94 mg/dL; Potassium 3.1 mmol/L (3.5-5.1); Sodium 140 mmol/L (136-145); Triglycerides 116 mg/dL (Less than 150)
[2017-07-21] MEDS ORDERED: Furosemide 40 MG TAB PO SCH (07:30)
--- NOTE | 2017-07-21 07:35 | PDOC.PN ---
- Subjective Encounter Start Date: 07/21/17 Encounter Start Time: 07:40 Subjective: Patient without new complaint. Left side of body now completely flaccid. - Objective Resuscitation Status: Resuscitation Status DNR:Do Not Resuscitate MAR Reviewed: Yes Vital Signs & Weight: Vital Signs (12 hours) Temp Pulse Resp BP BP BP Pulse Ox 07/21/17 06:55 178/84 H 07/21/17 05:18 58 L 182/84 H 07/21/17 04:50 97.8 F 58 L 20 182/84 H 91 L 07/21/17 01:15 98.4 F 98 18 182/96 H 93 L 07/20/17 21:16 184/102 H 07/20/17 20:51 98.1 F 67 16 184/102 H 97 07/20/17 19:49 86 16 98 Weight Weight 230 lb 3.2 oz Most Recent Monitor Data Heart Rate from ECG 93 NIBP 160/84 NIBP BP-Mean 95 Respiration from ECG 20 SpO2 96 I&O: 07/20/17 07/21/17 07/22/17 06:59 06:59 06:59 Intake Total 0 600 Output Total 2770 2100 Balance -2770 -1500 Result Diagrams: 07/21/17 06:17 07/21/17 06:17 Additional Labs: Accuchecks 07/21/17 07/20/17 06:28 21:46 POC Glucose 237 H 232 H Phys Exam - Physical Examination Constitutional: NAD dry mucus membranes Respiratory: no wheezing, no rales, no rhonchi Cardiovascular: RRR, no significant murmur Gastrointestinal: soft, positive bowel sounds Musculoskeletal: no edema LUandLE completely flaccid this AM, left facial droop Psychiatric: normal affect, A&O x 3 Dx/Plan (1) Acute ischemic stroke Code(s): I63.9 - CEREBRAL INFARCTION, UNSPECIFIED Status: Acute Comment: s/ p TPA on 07/19/2017, microhemorrhage on MRI 07/20/17, holding anticoagulants for now (2) Diastolic CHF, acute on chronic Code(s): I50.33 - ACUTE ON CHRONIC DIASTOLIC (CONGESTIVE) HEART FAILURE Status : Acute (3) DM type 2 (diabetes mellitus, type 2) Status: Chronic Qualifiers: Diabetes mellitus complication status: with hyperglycemia (4) COPD (chronic obstructive pulmonary disease) Status: Chronic (5) Hypertension Code(s): I10 - ESSENTIAL (PRIMARY) HYPERTENSION Status: Chronic (6) Dyslipidemia Code(s): E78.5 - HYPERLIPIDEMIA, UNSPECIFIED Status: Chronic (7) Hypokalemia Code(s): E87.6 - HYPOKALEMIA Status: Acute Comment: resumed home potassium and will give IV infusion - Plan cont current plan of care, DVT proph w/SCDs recheck CT to make sure no progression of bleeding. * . - Discharge Day Encounter end time: 08:20
[2017-07-21] MEDS ORDERED: Potassium Chloride 20 MEQ/100 ML PREMIX BAG IVPB SCH (07:45)
[2017-07-21] MEDS ORDERED: Potassium Chloride 20 MEQ in Sodium Chloride 0.9% 250 ML 250 ML IVPB SCH (08:15)
--- NOTE | 2017-07-21 09:29 | CT ---
CT OF THE BRAIN WITHOUT CONTRAST: INDICATION: Status post TPA with intercerebral bleed. COMPARISON: CT of the brain dated 07/20/17 at 5:57 p.m. FINDINGS: The small intracerebral hemorrhage involving the right frontal lobe has slightly increased in size pr edominantly due to surrounding vasogenic edema. The bleed and edema focus now measures 4.2 x 3.3 cm where it previously measured 3.8 x 2.6 cm. No midline shift is evident. Septum pellucidum and third ventricle are midline. Chronic small-vessel white matter ischemic changes similar. There is a smal l partial right mastoid effusion which is stable. There are vascular calcifications involving the in tracranial arteries. IMPRESSION: Slight interval increase in size of the right intracerebral hemorrhage involving the right frontal lo be, the majority of which is related to worsening vasogenic edema. Continued followup is recommended . POS: LAVON
--- NOTE | 2017-07-21 09:42 | PRG ---
DATE OF SERVICE: 07/21/2017 He had a fever last night. The reports 104, but 100.5 is what is listed in the chart. PHYSICAL EXAMINATION: VITAL SIGNS: Pulse is 95, respiration is 24, O2 sat 97%, blood pressure 165/72. HEENT: Unremarkable. NECK: No adenopathy or JVD. LUNGS: Clear. CARDIOVASCULAR: S1, S2 regular. ABDOMEN: Soft. EXTREMITIES: He has left-sided hemiparesis. Brain CT demonstrates the right-sided infarct. LABORATORY DATA: White blood cell count 12, hematocrit 42, platelet count 186. Sodium 140, potassiu m 3.1, chloride 102, CO2 23, BUN 18, creatinine 1.2, glucose 215. ASSESSMENT: 1. Large cerebrovascular accident. 2. Status post acute respiratory failure. 3. Acute diastolic congestive heart failure. 4. Low-grade fever. RECOMMENDATION: 1. Repeat chest x-ray to rule out aspiration pneumonia. 2. Speech therapy. 3. Physical therapy and occupational therapy.
[2017-07-21] MEDS: metFORMIN 500 MG TAB PO SCH ×2 (09:54→16:16)
[2017-07-21] MEDS: Potassium Chloride 10 MEQ TAB PO SCH ×2 (09:54→16:16)
[2017-07-21] MEDS: Amlodipine 5 MG TAB PO SCH (09:55)
[2017-07-21] MEDS: Folic Acid 1 MG TAB PO SCH (09:55)
[2017-07-21] MEDS: Lisinopril 20 MG TAB PO SCH ×2 (09:55→20:40)
[2017-07-21] MEDS: Ubidecarenone 50 MG CAP PO SCH (09:56)
[2017-07-21] MEDS: Acetaminophen 325 MG TAB PO PRN (09:56)
--- NOTE | 2017-07-21 10:05 | RAD ---
PORTABLE CHEST: History: Fever, aspiration. Comparison: 07-19-17 FINDINGS: Heart size is enlarged. There are post op sternotomy changes. Vascular engorgement changes appear imp roved as compared to the prior exam suggesting some resolving edema. There are some bibasilar lung ch anges, slightly greater in the right base. This could be on the basis of resolving edema and atelecta sis. No definite confluent infiltrative process seen. IMPRESSION: Resolving pulmonary edema change. POS: TPC
--- NOTE | 2017-07-21 11:31 | PDOC.PULPN ---
Subjective/Objective - Subjective Date: 07/21/17 Time: 11:30 Subjective: the patient is having difficulty with fever and is having some difficulty with swallowing - ROS Review of Systems: cough, congestion, shortness of breath - Objective Allergies/Adverse Reactions: Allergies Allergy/AdvReac Type Severity Reaction Status Date / Time No Known Allergies Allergy Verified 12/15/16 14:30 Medications: Current Medications Acetaminophen (Tylenol) 650 mg PO Q6H PRN PRN Reason: Headache/Fever or Pain Last Admin: 07/21/17 09:56 Dose: 650 mg Al Hydroxide/Mg Hydroxide (Maalox) 30 ml PO QIDPRN PRN PRN Reason: Dyspepsia Albuterol Sulfate (Proventil Hfa) 2 puff INH Q4H PRN PRN Reason: copd Albuterol/Ipratropium (Duoneb) 3 ml NEB [id number] PRN PRN Reason: SOB &/or Wheezing Amlodipine Besylate (Norvasc) 5 mg PO DAILY [facility] Last Admin: 07/21/17 09:55 Dose: 5 mg Bisacodyl (Dulcolax) 10 mg DE DAILYPRN PRN PRN Reason: Constipation Coenzyme Q10 (Coenzyme Q10) 100 mg PO DAILY [facility] [place] Last Admin: 07/21/17 09:56 Dose: 100 mg Dextrose/Water (Dextrose 50%) 25 gm SLOW IVP PRN PRN PRN Reason: Hypoglycemia Docusate Sodium (Colace) 100 mg PO BIDPRN PRN PRN Reason: Constipation Fluticasone Propionate (Flonase Nasal Grahn) 0 gm NASAL PRN PRN PRN Reason: Allergies Folic Acid (Folvite) 1 mg PO DAILY [facility] [place] Last Admin: 07/21/17 09:55 Dose: 1 mg Furosemide (Lasix) 40 mg SLOW IVP 0600,1400 [facility] [place] Last Admin: 07/21/17 05:25 Dose: 40 mg Glucagon (Glucagon) 1 mg IM PRN PRN PRN Reason: Hypoglycemia Dextrose/Water (D5w) 1,000 mls @ 0 mls/hr IV .Q0M PRN; As Directed PRN Reason: Hypoglycemia Insulin Human Lispro (Humalog) 0 units SC .MILD SLIDING SCALE PRN PRN Reason: Mild Correctional Scale Last Admin: 07/21/17 06:40 Dose: 4 unit Labetalol HCl (Normodyne) 10 mg SLOW IVP Q2H PRN PRN Reason: SBP > 180 Last Admin: 07/21/17 05:18 Dose: 10 mg Lisinopril (Zestril) 20 mg PO BID [facility] [place] Last Admin: 07/21/17 09:55 Dose: 20 mg Loratadine (Claritin) 10 mg PO DAILY PRN PRN Reason: Allergies Magnesium Hydroxide (Milk Of Magnesium) 30 ml PO BIDPRN PRN PRN Reason: Constipation Metformin HCl (Glucophage) 1,000 mg PO BID-[facility] Last Admin: 07/21/17 09:54 Dose: 1,000 mg Metoprolol Succinate (Toprol Xl) 200 mg PO DAILY [facility] [place] Last Admin: 07/21/17 09:56 Dose: 200 mg Mometasone Furoate/Formoterol Fumar (Dulera 200 Mcg/5 Mcg Inhaler) 1 puff INH BID-RT [facility] [place] Last Admin: 07/21/17 06:23 Dose: 1 puff Polyethylene Glycol (Miralax) 17 gm PO DAILY PRN PRN Reason: Constipation Potassium Chloride (Klor-Con 10) 10 meq PO BID-[facility] Last Admin: 07/21/17 09:54 Dose: 10 meq Ranolazine (Ranexa) 1,000 mg PO BID [facility] [place] Last Admin: 07/21/17 09:56 Dose: 1,000 mg Rosuvastatin Calcium (Crestor) 20 mg PO HS [facility] [place] Last Admin: 07/20/17 21:16 Dose: 20 mg Sodium Chloride (Flush - Normal Saline) 10 ml IVF Q12HR [facility] Last Admin: 07/21/17 09:52 Dose: 10 ml Sodium Chloride (Flush - Normal Saline) 10 ml IVF PRN PRN PRN Reason: Saline Flush MAR Reviewed: Yes Vital Signs: Vital Signs Temp 100.5 F H 07/21/17 08:00 Pulse 95 07/21/17 09:55 Resp 24 H 07/21/17 08:00 BP 165/72 H 07/21/17 09:55 Pulse Ox 97 07/21/17 08:00 Intake & Output 07/20/17 07/21/17 07/21/17 18:59 06:59 18:59 Intake Total 480 120 Output Total 1725 375 Balance -1245 -255 Weight 230 lb 3.2 oz Intake: Oral 480 120 Output: Urine 1725 375 Other: Voiding Method Urinal Urinal Urinal # Measured Voids 1 # Unmeasured Voids 1 # Urine Diapers 1 Physical Exam - Physical Exam HEENT: PERRLA, moist MMs Neck: no nodes, no JVD, supple Cardiovascular: RRR, no significant murmur Respiratory: other ( coarse breath sounds anteriorly) Gastrointestinal: soft, non-tender, no distention Deviation from normal: left-sided hemiplegia Psychiatric: A&O x 3 Skin: no rash - Labs Result Diagrams: 07/21/17 06:17 07/21/17 06:17 Lab results: Laboratory Results - last 24 hr 07/20/17 07/20/17 07/21/17 19:47 21:46 06:17 WBC 9.8 RBC 3.98 L Hgb 13.3 L Hct 39.1 L MCV 98.2 H MCH 33.4 H MCHC 34.0 RDW 13.8 Plt Count 202 MPV 7.5 Neutrophils % 72.8 Lymphocytes % 16.0 L Monocytes % 10.0 Eosinophils % 0.9 Basophils % 0.3 Neutrophils # 7.1 H Lymphocytes # 1.6 Monocytes # 1.0 H Eosinophils # 0.1 Basophils # 0.0 Sodium 140 Potassium 3.1 L Chloride 102 Carbon Dioxide 23 Anion Gap 18 BUN 18 Creatinine 1.16 Estimated GFR (MDRD) 61 Glucose 215 H POC Glucose 232 H Calcium 10.2 Triglycerides 116 Cholesterol 150 LDL Cholesterol, Calc 94 HDL Cholesterol 33 Heart Disease Risk Ratio 4.5 07/21/17 07/21/17 07/21/17 06:17 06:28 10:49 WBC 12.2 H RBC 4.30 L Hgb 13.7 L Hct 42.0 MCV 97.7 H MCH 31.8 H MCHC 32.6 RDW 13.8 Plt Count 186 MPV 8.3 Neutrophils % 76.2 H Lymphocytes % 11.9 L Monocytes % 11.1 H Eosinophils % 0.6 Basophils % 0.3 Neutrophils # 9.3 H Lymphocytes # 1.5 Monocytes # 1.4 H Eosinophils # 0.1 Basophils # 0.0 Sodium Potassium Chloride Carbon Dioxide Anion Gap BUN Creatinine Estimated GFR (MDRD) Glucose POC Glucose 237 H 221 H Calcium Triglycerides Cholesterol LDL Cholesterol, Calc HDL Cholesterol Heart Disease Risk Ratio Assessment and Plan - Problems (1) Acute ischemic stroke Current Visit: Yes Status: Acute Code(s): I63.9 - CEREBRAL INFARCTION, UNSPECIFIED - Time Spent with Patient Time: 50% of the time was spent in coordination of care (as documented) at patient's floor/unit and/or counseling patient.
[2017-07-22] MEDS: Furosemide 40 MG/4 ML VIAL SLOW IVP SCH (05:41)
[2017-07-22 06:52] LABS: Anion Gap 17 mmol/L (10-20); BUN (Urea Nitrogen) 35 mg/dL (8.4-25.7); Calc. Creatinine Clearance 50 mL/min (70-130); Calcium 9.8 mg/dL (7.8-10.44); Carbon Dioxide 27 mmol/L (23-31); Chloride 103 mmol/L (98-107); Estimated GFR-MDRD 37; Glucose 197 mg/dL (83-110); Potassium 3.2 mmol/L (3.5-5.1); Sodium 144 mmol/L (136-145)
[2017-07-22] MEDS: Mometasone/Formoterol 120 PUFF INHALER INH SCH ×2 (07:59→19:51)
--- NOTE | 2017-07-22 10:58 | PDOC.PN ---
- Subjective Encounter Start Date: 07/22/17 Encounter Start Time: 11:00 Subjective: No changes. No pain. No SOB. Eating well. - Objective Resuscitation Status: Resuscitation Status DNR:Do Not Resuscitate MAR Reviewed: Yes Vital Signs & Weight: Vital Signs (12 hours) Temp Pulse Resp BP BP Pulse Ox 07/22/17 08:00 99.2 F 72 18 159/60 H 98 07/22/17 03:34 98.0 F 82 16 144/50 H 95 07/22/17 00:31 99.7 F H 77 18 142/60 H 98 Weight Admit Weight 226 lb 12.8 oz Weight 219 lb 8 oz Most Recent Monitor Data Heart Rate from ECG 93 NIBP 160/84 NIBP BP-Mean 95 Respiration from ECG 20 SpO2 96 I&O: 07/21/17 07/22/17 07/23/17 06:59 06:59 06:59 Intake Total 600 60 Output Total 2100 Balance -1500 60 Result Diagrams: 07/22/17 11:48 07/22/17 05:30 Additional Labs: Accuchecks 07/22/17 07/21/17 07/21/17 05:43 21:14 17:36 POC Glucose 190 H 216 H 207 H 07/21/17 10:49 POC Glucose 221 H Phys Exam - Physical Examination Constitutional: NAD HEENT: moist MMs Respiratory: no wheezing, no rales, no rhonchi, clear to auscultation bilateral Cardiovascular: RRR, no significant murmur Gastrointestinal: soft, non-tender, positive bowel sounds Musculoskeletal: no edema unable to move left upper and lower extremities Psychiatric: normal affect, A&O x 3 Dx/Plan (1) Acute ischemic stroke Code(s): I63.9 - CEREBRAL INFARCTION, UNSPECIFIED Status: Acute Comment: s/ p TPA on 07/19/2017, microhemorrhage on MRI 07/20/17, holding anticoagulants for now, repeat CT 07/21/17 with slight interval worsening of ICH/edema (2) Diastolic CHF, acute on chronic Code(s): I50.33 - ACUTE ON CHRONIC DIASTOLIC (CONGESTIVE) HEART FAILURE Status : Acute Comment: Creat and BUN bumped today, will d/c IV Lasix and resume home po dose. (3) DM type 2 (diabetes mellitus, type 2) Status: Chronic Qualifiers: Diabetes mellitus complication status: with hyperglycemia (4) COPD (chronic obstructive pulmonary disease) Status: Chronic (5) Hypertension Code(s): I10 - ESSENTIAL (PRIMARY) HYPERTENSION Status: Chronic (6) Dyslipidemia Code(s): E78.5 - HYPERLIPIDEMIA, UNSPECIFIED Status: Chronic (7) Hypokalemia Code(s): E87.6 - HYPOKALEMIA Status: Acute Comment: resumed home potassium and will give IV infusion - Plan cont current plan of care, PT/OT, DVT proph w/SCDs Will continue to monitor bleed with repeat CT in the AM -: WBC bumped a bit yest and low grade fever, no recurrence today. CXR -: without obvious pneumonia. Will recheck CBC. No abx for now. * . - Discharge Day Encounter end time: 11:30
[2017-07-22] MEDS: Amlodipine 5 MG TAB PO SCH (11:09)
[2017-07-22] MEDS: HumaLOG 300 UNITS/3 ML VIAL SC PRN ×2 (11:09→17:21)
[2017-07-22] MEDS: Potassium Chloride 10 MEQ TAB PO SCH ×2 (11:10→17:08)
[2017-07-22] MEDS: Folic Acid 1 MG TAB PO SCH (11:10)
[2017-07-22] MEDS: Ubidecarenone 50 MG CAP PO SCH (11:10)
[2017-07-22] MEDS: Lisinopril 20 MG TAB PO SCH (11:11)
[2017-07-22] MEDS: metFORMIN 500 MG TAB PO SCH ×2 (11:13→17:08)
[2017-07-22 12:40] LABS: #Basophils 0.1 thou/uL (0.0-0.2); #Eosinphils 0.1 thou/uL (0.0-0.7); #Lymphocytes 1.9 thou/uL (1.20-3.40); #Monocytes 1.2 thou/uL (0.11-0.59); #Neutrophils 9.4 thou/uL (1.40-6.50); %Basophils 0.5 % (0.0-1.0); %Eosinophils 0.4 % (0.0-10.0); %Monocytes 9.3 % (0.0-10.0); %Neutrophils 74.8 % (42.0-75.0); Hemoglobin 13.9 g/dL (14.0-18.0); Mean Corpuscular HGB CONC 32.9 g/dL (32.0-36.0); Mean Corpuscular Hemoglobin 32.8 pg (27.0-31.0); Mean Corpuscular Volume 99.7 fl (80.0-94.0); Mean Platelet Volume 8.6 fL (7.4-10.4); Platelet Count 210 thou/uL (130-400); RBC Distribution Width 13.5 % (11.5-14.5); Red Blood Cell (RBC) Count 4.22 mill/uL (4.70-6.10); White Blood Cell (WBC) Count 12.6 thou/uL (4.8-10.8)
--- NOTE | 2017-07-22 13:40 | PRG ---
DATE OF SERVICE: 07/22/2017 SUBJECTIVE: Mr. Summers says he is feeling fine. His thinks he is doing better. She was at t he bedside feeding him peaches. OBJECTIVE: VITAL SIGNS: He is afebrile, heart rate 72, respiratory rate is 18, oximetry is 98 on 2 liters, bloo d pressure 159/60. LUNGS: Clear. HEART: Regular rhythm. ABDOMEN: Soft. DIAGNOSTIC DATA: Yesterday's chest radiograph showed improvement of his bilateral infiltrates. IMPRESSION: 1. Status post cerebrovascular accident. Clinically, stable at this point in time, tolerating slow advancement of his diet. 2. Diastolic heart failure with improving radiograph. 3. Temperature of 99, most likely secondary to atelectasis. PLAN: Continue close observation.
[2017-07-22] MEDS ORDERED: Furosemide 20 MG TAB PO SCH (14:00)
[2017-07-22] MEDS: Sodium Chloride 0.9% 1,000 ML IV SCH (18:16)
[2017-07-22] MEDS: Acetaminophen 325 MG TAB PO PRN (18:16)
[2017-07-23] MEDS: Sodium Chloride 0.9% 1,000 ML IV SCH ×2 (04:49→21:14)
[2017-07-23 05:52] LABS: #Eosinphils 0.1 thou/uL (0.0-0.7); #Lymphocytes 2.1 thou/uL (1.20-3.40); #Monocytes 1.1 thou/uL (0.11-0.59); %Basophils 0.4 % (0.0-1.0); %Eosinophils 1.2 % (0.0-10.0); %Lymphocytes 18.4 % (21.0-51.0); %Monocytes 9.9 % (0.0-10.0); %Neutrophils 70.1 % (42.0-75.0); Hemoglobin 12.7 g/dL (14.0-18.0); Mean Corpuscular HGB CONC 32.8 g/dL (32.0-36.0); Mean Corpuscular Hemoglobin 32.8 pg (27.0-31.0); Mean Platelet Volume 8.6 fL (7.4-10.4); Platelet Count 200 thou/uL (130-400); RBC Distribution Width 13.2 % (11.5-14.5); Red Blood Cell (RBC) Count 3.86 mill/uL (4.70-6.10); White Blood Cell (WBC) Count 11.3 thou/uL (4.8-10.8)
[2017-07-23 06:36] LABS: Anion Gap 15 mmol/L (10-20); BUN (Urea Nitrogen) 48 mg/dL (8.4-25.7); Calc. Creatinine Clearance 47 mL/min (70-130); Calcium 9.7 mg/dL (7.8-10.44); Carbon Dioxide 27 mmol/L (23-31); Chloride 103 mmol/L (98-107); Estimated GFR-MDRD 33; Glucose 195 mg/dL (83-110); Potassium 3.4 mmol/L (3.5-5.1); Sodium 142 mmol/L (136-145)
[2017-07-23] MEDS ORDERED: Furosemide 40 MG TAB PO SCH (07:30)
[2017-07-23] MEDS: Mometasone/Formoterol 120 PUFF INHALER INH SCH ×2 (07:35→20:01)
--- NOTE | 2017-07-23 09:11 | CT ---
CT BRAIN: Date: 07/23/17 HISTORY: Stroke, 77-year-old male. FINDINGS: Noncontrast enhanced CT images of brain obtained. Comparison made to previous exam from 07/21/17. Noncontrast enhanced CT images of the brain demonstrate an area of intraparenchymal hemorrhage and hy podensity surrounding it, compatible with an area of stroke in the right MCA distribution. Overall si ze and shape is not significantly changed since the previous exam. No newly developed mass is seen. A nicanor of subtle hypodensity seen in left dedrick, likely representing a small old area of stroke. No other acute abnormality seen. IMPRESSION: Right frontoparietal area of acute stroke with some likely area of more central hemorrhage. POS: LAVON
--- NOTE | 2017-07-23 10:26 | PDOC.PN ---
- Subjective Encounter Start Date: 07/23/17 Encounter Start Time: 10:24 Patient seen at bedside. No overnight events. Denies SOB, C/P, Palpitations. - Objective Resuscitation Status: Resuscitation Status DNR:Do Not Resuscitate MAR Reviewed: Yes Vital Signs & Weight: Vital Signs (12 hours) Temp Pulse Resp BP BP Pulse Ox 07/23/17 08:00 98.3 F 79 18 98 07/23/17 07:40 98.3 F 79 18 135/62 98 07/23/17 03:20 98.3 F 68 20 132/64 100 07/22/17 23:21 98.3 F 82 16 110/78 98 Weight Admit Weight 226 lb 12.8 oz Weight 231 lb 8 oz Most Recent Monitor Data Heart Rate from ECG 93 NIBP 160/84 NIBP BP-Mean 95 Respiration from ECG 20 SpO2 96 I&O: 07/22/17 07/23/17 07/24/17 06:59 06:59 06:59 Intake Total 60 1351 Balance 60 1351 Result Diagrams: 07/23/17 05:02 07/23/17 05:02 Additional Labs: Accuchecks 07/23/17 07/22/17 07/22/17 06:03 21:01 17:18 POC Glucose 185 H 176 H 238 H 07/22/17 10:39 POC Glucose 240 H Phys Exam - Physical Examination Constitutional: NAD HEENT: moist MMs Neck: no JVD Respiratory: clear to auscultation bilateral Cardiovascular: irregular Gastrointestinal: soft Musculoskeletal: no edema Left hemiparesis Psychiatric: normal affect, A&O x 3 Dx/Plan (1) Acute ischemic stroke Code(s): I63.9 - CEREBRAL INFARCTION, UNSPECIFIED Status: Acute Comment: s/ p TPA on 07/19/2017, microhemorrhage on MRI 07/20/17, holding anticoagulants for now, repeat CT 07/21/17 with slight interval worsening of ICH/edema (2) A-fib Code(s): I48.91 - UNSPECIFIED ATRIAL FIBRILLATION Status: Acute Qualifiers: Atrial fibrillation type: paroxysmal Qualified Code(s): I48.0 - Paroxysmal atrial fibrillation (3) Diastolic CHF, acute on chronic Code(s): I50.33 - ACUTE ON CHRONIC DIASTOLIC (CONGESTIVE) HEART FAILURE Status : Acute Comment: Creat and BUN bumped today, will d/c IV Lasix and resume home po dose. (4) Dyslipidemia Code(s): E78.5 - HYPERLIPIDEMIA, UNSPECIFIED Status: Chronic (5) Hypertension Code(s): I10 - ESSENTIAL (PRIMARY) HYPERTENSION Status: Chronic - Plan cont current plan of care, plan discussed w/ family, PT/OT, social media marketing manager, DVT proph w/SCDs * Continue with current management. * Gentle IV hydration for RAMEZ. Lisinopril and Lasix on hold * Rate control of Atrial fibrillation. No anticoagulation due to hemorrhage seen on CT * Statin * Consult neurosx for hemorrhage in patient S/P TPA for ischemic CVA * PT/OT
[2017-07-23] MEDS: metFORMIN 500 MG TAB PO SCH ×2 (11:22→17:12)
[2017-07-23] MEDS: Potassium Chloride 10 MEQ TAB PO SCH ×2 (11:23→17:12)
[2017-07-23] MEDS: Amlodipine 5 MG TAB PO SCH (11:23)
[2017-07-23] MEDS: Folic Acid 1 MG TAB PO SCH (11:24)
[2017-07-23] MEDS: Ubidecarenone 50 MG CAP PO SCH (11:25)
--- NOTE | 2017-07-23 16:07 | CON ---
DATE OF CONSULTATION: 07/23/2017 HISTORY OF PRESENT ILLNESS: The patient is a 77-year-old male with a past medical history of paroxysmal atrial fibrillation, CHF, hypertension, hyperlipidemia, diabetes type 2, coronary artery disease, chronic kidney disease , seen in evaluation in the emergency room on 07/19/2017 for shortness of breath. Plan at that time was to admit for acute congestive heart failure exacerbation; however, during his ER course, the patient developed acute left- sided weakness. CT head was negative for acute intracranial hemorrhage and after discussion with Neurology, the patient was treated with TPA. He was admitted under the medicine service with neurology consult for further management of acute right-sided MCA CVA. A repeat head CT on 07/20/2017 showed interval development of small petechial areas of hemorrhage in the right frontoparietal region. On 07/21/2017 additional repeat scan showed evolution of this bleed. Today's repeat head CT shows a stable right frontoparietal intracranial hemorrhage. The Neurosurgery Service was consulted for further evaluation and management of this bleed. I am seeing the patient at bedside; since the onset of his weakness in the emergency department, the patient and family report no change in his mentation, speech, or weakness. He has a left-sided flaccid paralysis of the left upper extremity and left lower extremity. He also was noted to have a left-sided facial droop and devation of the tongue to the left. PAST MEDICAL HISTORY: Paroxysmal atrial fibrillation, CHF, hypertension, hyperlipidemia, type 2 diabetes, COPD, coronary artery disease status post cardiac stent placement, chronic kidney disease. PAST SURGICAL HISTORY: Cardiac stents, cardiac bypass, appendectomy, cholecystectomy, and cataract surgery. FAMILY HISTORY: Patient's uncle has a history of acute [place] in his 50s. SOCIAL HISTORY: The patient does not smoke, drink or use any drugs. He lives at home. ALLERGIES: Patient has no known drug allergies. PHYSICAL EXAMINATION: GENERAL: Patient is alert, comfortable in no acute distress. EYES: PERRLA. Extraocular movements are intact. ENT: Oral mucosa is pink, intact and moist. He has normal voice. Left tongue deviation. NECK: Supple, nontender to palpation. Free active range of motion, no meningismus or nuchal rigidity. HEAD: Left side facial droop is appreciated. RESPIRATORY: The patient is breathing comfortably. Symmetric chest expansion. No evidence of dyspnea. CARDIOVASCULAR: Regular rate and rhythm. MUSCULOSKELETAL: The patient has flaccid paralysis of the left upper extremity and left lower extremity. He has 5/5 strength in the right upper extremity and right lower extremity. NEUROLOGIC: The patient is A and O x4. He has paralysis of the left lower extremity and left lower extremity. No reflex asymmetry. ASSESSMENT AND PLAN: Acute right middle cerebral artery cerebrovascular accident status post treatment with TPA and interval development of acute intracranial hemorrhage. I am seeing Mr. Summers at the bedside. His last CT scan appears to show a stable right frontoparietal intracranial hemorrhage. There has been no progression or decline in his neurologic exam. His anticoagulants should continue to be held. Patient was previously on aspirin and Brilinta. I do not suspect any acute neurosurgical intervention at this time, but we will continue to follow along. I have discussed this plan with Dr. Prince who is in agreement. Please reach out to Neurosurgery Service for additional questions or concerns. BUTCH
[2017-07-23] MEDS: Acetaminophen 325 MG TAB PO PRN (17:12)
--- NOTE | 2017-07-23 18:51 | PRG ---
DATE OF SERVICE: 07/23/2017 SUBJECTIVE: Mr. Summers is doing well. He is still having difficulty with his speech. He actually is tolerating his diet so far. OBJECTIVE: VITAL SIGNS: He is afebrile, heart rate is 76, respiratory rate is 18, oximetry is 97% on 2 liters, blood pressure 120/72. LUNGS: Clear. HEART: Regular rhythm. ABDOMEN: Soft. LABORATORY DATA: White count 11.3, hemoglobin 12.7, platelets 200,000. Sodium 142, potassium 3.4, c hloride 103, bicarb 27, BUN 48, creatinine 1.99, creatinine yesterday was 1.78, creatinine 2 days ago is 1.16. IMPRESSION: 1. Status post cerebrovascular accident, stable at this point in time. 2. Diastolic heart failure with improving radiograph. 3. Atelectasis with improved temperature curve. PLAN: Continue current care.
[2017-07-24] MEDS: metFORMIN 500 MG TAB PO SCH ×2 (09:20→13:22)
[2017-07-24] MEDS: Amlodipine 5 MG TAB PO SCH (09:20)
[2017-07-24] MEDS: Potassium Chloride 10 MEQ TAB PO SCH ×2 (09:20→16:47)
[2017-07-24] MEDS: Folic Acid 1 MG TAB PO SCH (09:21)
[2017-07-24] MEDS: Ubidecarenone 50 MG CAP PO SCH (09:22)
[2017-07-24] MEDS: Sodium Chloride 0.9% 1,000 ML IV SCH (09:40)
[2017-07-24] MEDS: Mometasone/Formoterol 120 PUFF INHALER INH SCH ×2 (10:30→19:58)
--- NOTE | 2017-07-24 11:40 | EKG ---
Test Reason : Blood Pressure : / mmHG Vent. Rate : 074 BPM Atrial Rate : 089 BPM P-R Int : 000 ms QRS Dur : 102 ms QT Int : 438 ms P-R-T Axes : 000 005 -60 degrees QTc Int : 486 ms Atrial fibrillation with premature ventricular or aberrantly conducted complexes Nonspecific T wave abnormality , probably digitalis effect Prolonged QT Abnormal ECG Confirmed by SHANT BANDA D.O. ([id number]), general expeditor MAIKOL HUMPHREY ([id number]) on 07/24/2017 11:40:03 AM Referred By: Confirmed By:SHANT BANDA D.O.
[2017-07-24] MEDS: HumaLOG 300 UNITS/3 ML VIAL SC PRN ×2 (13:38→21:34)
--- NOTE | 2017-07-24 15:41 | PDOC.PN ---
- Subjective Encounter Start Date: 07/24/17 Encounter Start Time: 15:39 Subjective: doing much better.able to eat.working w PT. -: no new complaints. -: persistent L facial droop and left sided weakness - Objective Resuscitation Status: Resuscitation Status DNR:Do Not Resuscitate MAR Reviewed: Yes Vital Signs & Weight: Vital Signs (12 hours) Temp Pulse Resp BP BP BP Pulse Ox 07/24/17 11:35 98.5 F 74 18 150/80 H 98 07/24/17 10:30 72 20 99 07/24/17 09:20 81 155/60 H 07/24/17 08:00 97.7 F 81 18 95 07/24/17 07:45 97.7 F 81 18 155/60 H 95 07/24/17 03:49 98.3 F 66 18 155/72 H 100 Weight Admit Weight 226 lb 12.8 oz Weight 232 lb 6.4 oz Most Recent Monitor Data Heart Rate from ECG 93 NIBP 160/84 NIBP BP-Mean 95 Respiration from ECG 20 SpO2 96 I&O: 07/23/17 07/24/17 07/25/17 06:59 06:59 06:59 Intake Total 1351 2075 Balance 1351 2075 Result Diagrams: 07/23/17 05:02 07/23/17 05:02 Additional Labs: Accuchecks 07/24/17 07/24/17 07/23/17 10:52 05:47 20:44 POC Glucose 272 H 174 H 168 H 07/23/17 17:13 POC Glucose 188 H Laboratory Tests 07/19/17 07/19/17 07/21/17 11:29 11:29 06:17 Creatinine 1.18 1.16 B-Natriuretic Peptide 572.1 H Triglycerides 116 Cholesterol 150 LDL Cholesterol, Calc 94 07/22/17 07/23/17 05:30 05:02 Creatinine 1.78 H 1.99 H B-Natriuretic Peptide Triglycerides Cholesterol LDL Cholesterol, Calc Radiology Reviewed by me: Yes (bryant Ct 07/23- slightly increased hemorrhage) Phys Exam - Physical Examination Constitutional: NAD HEENT: PERRLA, moist MMs, sclera anicteric, oral pharynx no lesions Neck: no nodes, no JVD, supple, full ROM Respiratory: no wheezing, no rales, no rhonchi, clear to auscultation bilateral Cardiovascular: RRR, no significant murmur, no rub, gallop Gastrointestinal: soft, non-tender, no distention, positive bowel sounds Musculoskeletal: no edema, pulses present left facila droop. left hemiparesis Psychiatric: normal affect, A&O x 3 Skin: no rash Dx/Plan (1) Intracranial hemorrhage Code(s): I62.9 - NONTRAUMATIC INTRACRANIAL HEMORRHAGE, UNSPECIFIED Status: Acute Comment: Stable per last CT (2) Acute ischemic stroke Code(s): I63.9 - CEREBRAL INFARCTION, UNSPECIFIED Status: Acute Comment: s/ p TPA on 07/19/2017, microhemorrhage on MRI 07/20/17, holding anticoagulants for now, repeat CT 07/21/17 and 07/23/17 with slight interval worsening of ICH/ edema (3) Diastolic CHF, acute on chronic Code(s): I50.33 - ACUTE ON CHRONIC DIASTOLIC (CONGESTIVE) HEART FAILURE Status : Acute Comment: Creat and BUN bumped .On lasix, home po dose. (4) CAD (coronary artery disease) Code(s): I25.10 - ATHSCL HEART DISEASE OF [place] CORONARY ARTERY W/O ANG PCTRS Status: Chronic Qualifiers: Coronary Disease-Associated Artery/Lesion type: [place] artery [place] vs. transplanted heart: ute heart Associated angina: without angina Qualified Code(s): I25.10 - Atherosclerotic heart disease of [place] coronary artery without angina pectoris (5) RAMEZ (acute kidney injury) Code(s): N17.9 - ACUTE KIDNEY FAILURE, UNSPECIFIED Status: Acute (6) COPD (chronic obstructive pulmonary disease) Status: Chronic (7) DM type 2 (diabetes mellitus, type 2) Status: Chronic Qualifiers: Diabetes mellitus complication status: with hyperglycemia (8) Dyslipidemia Code(s): E78.5 - HYPERLIPIDEMIA, UNSPECIFIED Status: Chronic (9) Hypokalemia Code(s): E87.6 - HYPOKALEMIA Status: Acute Comment: resumed home potassium and recheck (10) Hypertension Code(s): I10 - ESSENTIAL (PRIMARY) HYPERTENSION Status: Chronic (11) Paroxysmal atrial fibrillation Code(s): I48.0 - PAROXYSMAL ATRIAL FIBRILLATION Status: Acute Comment: No anticoagulation due to ICH - Plan plan discussed w/ family, PT/OT, social human services assistants, speech therapy, out of bed/ ambulate, DVT proph w/SCDs remians stable. continue neuro checks q4h.NS following. -: may repeat CT head in next 1-2 days to monitor progress of ICH.hold anticoa -: DC IVF & repeat BMP in am. CINDA-I & lasix on hold.Ac CHF on presentation -: appears euvolemic now.cont Statin,norvasc,BB.cardiology following. -: awaitng rehab eval.am labsreplace Potassium * . Review of Systems - Review of Systems Constitutional: weakness, malaise. negative: fever, chills, sweats, other ENT: negative: Ear Pain, Ear Discharge, Nose Pain, Nose Discharge, Nose Congestion, Mouth Pain, Mouth Swelling, Throat Pain, Throat Swelling, Other Respiratory: negative: Cough, Dry, Shortness of Breath, Hemoptysis, SOB with Excertion, Pleuritic Pain, Sputum, Wheezing Cardiovascular: negative: chest pain, palpitations, orthopnea, paroxysmal nocturnal dyspnea, edema, light headedness, other Gastrointestinal: negative: Nausea, Vomiting, Abdominal Pain, Diarrhea, Constipation, Melena, Hematochezia, Other Genitourinary: negative: Dysuria, Frequency, Incontinence, Hematuria, Retention , Other Musculoskeletal: negative: Neck Pain, Shoulder Pain, Arm Pain, Back Pain, Hand Pain, Leg Pain, Foot Pain, Other Neurological: Weakness - Medications/Allergies Allergies/Adverse Reactions: Allergies Allergy/AdvReac Type Severity Reaction Status Date / Time No Known Allergies Allergy Verified 12/15/16 14:30 Medications: Current Medications Acetaminophen (Tylenol) 650 mg PO Q6H PRN PRN Reason: Headache/Fever or Pain Last Admin: 07/23/17 17:12 Dose: 650 mg Al Hydroxide/Mg Hydroxide (Maalox) 30 ml PO QIDPRN PRN PRN Reason: Dyspepsia Albuterol Sulfate (Proventil Hfa) 2 puff INH Q4H PRN PRN Reason: copd Albuterol/Ipratropium (Duoneb) 3 ml NEB [id number] PRN PRN Reason: SOB &/or Wheezing Amlodipine Besylate (Norvasc) 5 mg PO DAILY ANNABEL Last Admin: 07/24/17 09:20 Dose: 5 mg Bisacodyl (Dulcolax) 10 mg [place] DAILYPRN PRN PRN Reason: Constipation Coenzyme Q10 (Coenzyme Q10) 100 mg PO DAILY [facility] Last Admin: 07/24/17 09:22 Dose: 100 mg Dextrose/Water (Dextrose 50%) 25 gm SLOW IVP PRN PRN PRN Reason: Hypoglycemia Docusate Sodium (Colace) 100 mg PO BIDPRN PRN PRN Reason: Constipation Fluticasone Propionate (Flonase Nasal [place]) 0 gm NASAL PRN PRN PRN Reason: Allergies Folic Acid (Folvite) 1 mg PO DAILY [facility] Last Admin: 07/24/17 09:21 Dose: 1 mg Glucagon (Glucagon) 1 mg IM PRN PRN PRN Reason: Hypoglycemia Dextrose/Water (D5w) 1,000 mls @ 0 mls/hr IV .Q0M PRN; As Directed PRN Reason: Hypoglycemia Sodium Chloride (Normal Saline 0.9%) 1,000 mls @ 75 mls/hr IV .[id number] [facility] Last Admin: 07/24/17 09:40 Dose: 1,000 mls Insulin Human Lispro (Humalog) 0 units SC .MILD SLIDING SCALE PRN PRN Reason: Mild Correctional Scale Last Admin: 07/24/17 13:38 Dose: 6 unit Labetalol HCl (Normodyne) 10 mg SLOW IVP Q2H PRN PRN Reason: SBP > 180 Last Admin: 07/21/17 05:18 Dose: 10 mg Loratadine (Claritin) 10 mg PO DAILY PRN PRN Reason: Allergies Magnesium Hydroxide (Milk Of Magnesium) 30 ml PO BIDPRN PRN PRN Reason: Constipation Metformin HCl (Glucophage) 1,000 mg PO BID-WM [facility] Last Admin: 07/24/17 13:22 Dose: Not Given Metoprolol Succinate (Toprol Xl) 200 mg PO DAILY [facility] Last Admin: 07/24/17 09:21 Dose: 200 mg Mometasone Furoate/Formoterol Fumar (Dulera 200 Mcg/5 Mcg Inhaler) 1 puff INH BID-RT [facility] Last Admin: 07/24/17 10:30 Dose: 1 puff Polyethylene Glycol (Miralax) 17 gm PO DAILY PRN PRN Reason: Constipation Potassium Chloride (Klor-Con 10) 10 meq PO BID-WM [facility] Last Admin: 07/24/17 09:20 Dose: 10 meq Ranolazine (Ranexa) 1,000 mg PO BID [facility] Last Admin: 07/24/17 09:21 Dose: 1,000 mg Rosuvastatin Calcium (Crestor) 20 mg PO HS [facility] Last Admin: 07/23/17 21:14 Dose: 20 mg Sodium Chloride (Flush - Normal Saline) 10 ml IVF Q12HR [facility] Last Admin: 07/24/17 09:22 Dose: Not Given Sodium Chloride (Flush - Normal Saline) 10 ml IVF PRN PRN PRN Reason: Saline Flush
[2017-07-24] MEDS: Acetaminophen 325 MG TAB PO PRN (16:47)
--- NOTE | 2017-07-24 21:08 | PRG ---
DATE OF SERVICE: 07/24/2017 SUBJECTIVE: I met with Mr. Summers's , he was sleeping nice in the room. She says she thought he is doing better today. She actually fed him half a plate of pasta today. He is taking a nap afte r that. OBJECTIVE: VITAL SIGNS: His vital signs have been stable. He is afebrile, heart rate is 73, respiratory rate i s 18, oximetry is 100, blood pressure 155/79. LUNGS: Clear. HEART: Regular rhythm. IMPRESSION: Status post cerebrovascular accident. He continues to handle his secretions well. PLAN: Continue with post-stroke rehabilitation, supportive feeds and physical therapy. I have asked the nurse to get him a chair for his room or we can may be sit him up late today first thing in the morning. I think emotionally this will be good for him.
[2017-07-25 05:25] LABS: #Eosinphils 0.1 thou/uL (0.0-0.7); #Lymphocytes 1.5 thou/uL (1.20-3.40); #Neutrophils 7.1 thou/uL (1.40-6.50); %Basophils 0.2 % (0.0-1.0); %Eosinophils 0.8 % (0.0-10.0); %Lymphocytes 15.7 % (21.0-51.0); %Monocytes 10.1 % (0.0-10.0); %Neutrophils 73.2 % (42.0-75.0); Hemoglobin 11.7 g/dL (14.0-18.0); Mean Corpuscular HGB CONC 33.1 g/dL (32.0-36.0); Mean Corpuscular Hemoglobin 32.8 pg (27.0-31.0); Mean Corpuscular Volume 99.3 fl (80.0-94.0); Mean Platelet Volume 8.3 fL (7.4-10.4); Platelet Count 185 thou/uL (130-400); RBC Distribution Width 12.9 % (11.5-14.5); Red Blood Cell (RBC) Count 3.56 mill/uL (4.70-6.10); White Blood Cell (WBC) Count 9.7 thou/uL (4.8-10.8)
[2017-07-25 05:49] LABS: Anion Gap 10 mmol/L (10-20); BUN (Urea Nitrogen) 31 mg/dL (8.4-25.7); Calc. Creatinine Clearance 81 mL/min (70-130); Calcium 9.3 mg/dL (7.8-10.44); Carbon Dioxide 28 mmol/L (23-31); Chloride 108 mmol/L (98-107); Estimated GFR-MDRD 62; Glucose 165 mg/dL (83-110); Potassium 3.4 mmol/L (3.5-5.1); Sodium 143 mmol/L (136-145)
[2017-07-25] MEDS: Mometasone/Formoterol 120 PUFF INHALER INH SCH ×2 (07:22→20:55)
[2017-07-25] MEDS: Potassium Chloride 10 MEQ TAB PO SCH ×2 (10:30→16:09)
[2017-07-25] MEDS: Folic Acid 1 MG TAB PO SCH (10:30)
[2017-07-25] MEDS: Amlodipine 5 MG TAB PO SCH (10:30)
[2017-07-25] MEDS: Ubidecarenone 50 MG CAP PO SCH (10:31)
[2017-07-25] MEDS ORDERED: Potassium Chloride 10 MEQ TAB PO SCH (11:45)
[2017-07-25] MEDS ORDERED: Amlodipine 5 MG TAB PO SCH (13:00)
--- NOTE | 2017-07-25 14:30 | PDOC.PN ---
- Subjective Encounter Start Date: 07/25/17 Encounter Start Time: 14:29 Subjective: doing much better with his speech and swollowing. -: working w PT better today.care updated. -: no new concerns - Objective Resuscitation Status: Resuscitation Status DNR:Do Not Resuscitate MAR Reviewed: Yes Vital Signs & Weight: Vital Signs (12 hours) Temp Pulse Pulse Pulse Resp BP BP 07/25/17 11:25 97.4 F L 57 L 18 07/25/17 10:30 71 128/68 07/25/17 08:34 80 76 161/88 H 07/25/17 08:00 98.3 F 71 20 07/25/17 07:25 98.2 F 80 18 07/25/17 07:24 07/25/17 07:22 71 20 07/25/17 05:32 98.3 F 71 20 BP BP Pulse Ox 07/25/17 11:25 164/85 H 100 07/25/17 10:30 07/25/17 08:34 159/86 H 07/25/17 08:00 97 07/25/17 07:25 159/86 H 96 07/25/17 07:24 97 07/25/17 07:22 97 07/25/17 05:32 128/68 95 Weight Admit Weight 226 lb 12.8 oz Weight 231 lb Most Recent Monitor Data Heart Rate from ECG 93 NIBP 160/84 NIBP BP-Mean 95 Respiration from ECG 20 SpO2 96 I&O: 07/24/17 07/25/17 07/26/17 06:59 06:59 06:59 Intake Total 5 970 Balance 2075 970 Result Diagrams: 07/25/17 05:18 07/25/17 05:18 Additional Labs: Accuchecks 07/25/17 07/25/17 07/24/17 10:54 05:18 21:34 POC Glucose 200 H 156 H 182 H 07/24/17 17:18 POC Glucose 154 H Laboratory Tests 07/19/17 07/21/17 07/22/17 11:29 06:17 05:30 Creatinine 1.18 1.16 1.78 H 07/23/17 07/25/17 05:02 05:18 Creatinine 1.99 H 1.15 Phys Exam - Physical Examination Constitutional: NAD HEENT: PERRLA, moist MMs, sclera anicteric, oral pharynx no lesions Neck: no nodes, no JVD, supple, full ROM Respiratory: no wheezing, no rales, no rhonchi, clear to auscultation bilateral Cardiovascular: RRR, no significant murmur Gastrointestinal: soft, non-tender, no distention, positive bowel sounds Musculoskeletal: no edema, pulses present Neurological: non-focal, normal sensation left facial droop and L hemiparesis Psychiatric: normal affect, A&O x 3 Skin: no rash Dx/Plan (1) Intracranial hemorrhage Code(s): I62.9 - NONTRAUMATIC INTRACRANIAL HEMORRHAGE, UNSPECIFIED Status: Acute Comment: Stable per last CT (2) Acute ischemic stroke Code(s): I63.9 - CEREBRAL INFARCTION, UNSPECIFIED Status: Acute Comment: s/ p TPA on 07/19/2017, microhemorrhage on MRI 07/20/17, holding anticoagulants for now, repeat CT 07/21/17 and 07/23/17 with slight interval worsening of ICH/ edema (3) Diastolic CHF, acute on chronic Code(s): I50.33 - ACUTE ON CHRONIC DIASTOLIC (CONGESTIVE) HEART FAILURE Status : Acute Comment: Creat and BUN bumped .On lasix, home po dose. (4) CAD (coronary artery disease) Code(s): I25.10 - ATHSCL HEART DISEASE OF [place] CORONARY ARTERY W/O ANG PCTRS Status: Chronic Qualifiers: Coronary Disease-Associated Artery/Lesion type: [place] artery [place] vs. transplanted heart: [place] heart Associated angina: without angina Qualified Code(s): I25.10 - Atherosclerotic heart disease of [place] coronary artery without angina pectoris (5) RAMEZ (acute kidney injury) Code(s): N17.9 - ACUTE KIDNEY FAILURE, UNSPECIFIED Status: Acute (6) COPD (chronic obstructive pulmonary disease) Status: Chronic (7) DM type 2 (diabetes mellitus, type 2) Status: Chronic Qualifiers: Diabetes mellitus complication status: with hyperglycemia (8) Dyslipidemia Code(s): E78.5 - HYPERLIPIDEMIA, UNSPECIFIED Status: Chronic (9) Hypokalemia Code(s): E87.6 - HYPOKALEMIA Status: Acute Comment: resumed home potassium and recheck (10) Hypertension Code(s): I10 - ESSENTIAL (PRIMARY) HYPERTENSION Status: Chronic (11) Paroxysmal atrial fibrillation Code(s): I48.0 - PAROXYSMAL ATRIAL FIBRILLATION Status: Acute Comment: No anticoagulation due to ICH - Plan plan discussed w/ family, PT/OT, speech therapy, DVT proph w/SCDs Recheck CT brain tomorrow to evaluate ICH.Clinically better.cont Neuro chec -: replace and recheck potassium.replace Mag. -: renal Fx much improved.holding metformin. -: cont norvasc,Toprol.BP contreolled. -: awaiting Rehab approval.am labs * . Review of Systems - Review of Systems Constitutional: negative: fever, chills, sweats, weakness, malaise, other ENT: negative: Ear Pain, Ear Discharge, Nose Pain, Nose Discharge, Nose Congestion, Mouth Pain, Mouth Swelling, Throat Pain, Throat Swelling, Other Respiratory: negative: Cough, Dry, Shortness of Breath, Hemoptysis, SOB with Excertion, Pleuritic Pain, Sputum, Wheezing Cardiovascular: negative: chest pain, palpitations, orthopnea, paroxysmal nocturnal dyspnea, edema, light headedness, other Gastrointestinal: negative: Nausea, Vomiting, Abdominal Pain, Diarrhea, Constipation, Melena, Hematochezia, Other Genitourinary: negative: Dysuria, Frequency, Incontinence, Hematuria, Retention , Other Musculoskeletal: negative: Neck Pain, Shoulder Pain, Arm Pain, Back Pain, Hand Pain, Leg Pain, Foot Pain, Other Neurological: Weakness - Medications/Allergies Allergies/Adverse Reactions: Allergies Allergy/AdvReac Type Severity Reaction Status Date / Time No Known Allergies Allergy Verified 12/15/16 14:30 Medications: Current Medications Acetaminophen (Tylenol) 650 mg PO Q6H PRN PRN Reason: Headache/Fever or Pain Last Admin: 07/24/17 16:47 Dose: 650 mg Al Hydroxide/Mg Hydroxide (Maalox) 30 ml PO QIDPRN PRN PRN Reason: Dyspepsia Albuterol Sulfate (Proventil Hfa) 2 puff INH Q4H PRN PRN Reason: copd Albuterol/Ipratropium (Duoneb) 3 ml NEB [id number] PRN PRN Reason: SOB &/or Wheezing Amlodipine Besylate (Norvasc) 10 mg PO DAILY ANNABEL Amlodipine Besylate (Norvasc) 10 mg PO NOW ANNABEL Stop: 07/25/17 15:00 Bisacodyl (Dulcolax) 10 mg [place] DAILYPRN PRN PRN Reason: Constipation Coenzyme Q10 (Coenzyme Q10) 100 mg PO DAILY [facility] Last Admin: 07/25/17 10:31 Dose: 100 mg Dextrose/Water (Dextrose 50%) 25 gm SLOW IVP PRN PRN PRN Reason: Hypoglycemia Docusate Sodium (Colace) 100 mg PO BIDPRN PRN PRN Reason: Constipation Fluticasone Propionate (Flonase Nasal [place]) 0 gm NASAL PRN PRN PRN Reason: Allergies Folic Acid (Folvite) 1 mg PO DAILY [facility] Last Admin: 07/25/17 10:30 Dose: 1 mg Glucagon (Glucagon) 1 mg IM PRN PRN PRN Reason: Hypoglycemia Dextrose/Water (D5w) 1,000 mls @ 0 mls/hr IV .Q0M PRN; As Directed PRN Reason: Hypoglycemia Insulin Human Lispro (Humalog) 0 units SC .MILD SLIDING SCALE PRN PRN Reason: Mild Correctional Scale Last Admin: 07/24/17 21:34 Dose: 2 unit Labetalol HCl (Normodyne) 10 mg SLOW IVP Q2H PRN PRN Reason: SBP > 180 Last Admin: 07/21/17 05:18 Dose: 10 mg Loratadine (Claritin) 10 mg PO DAILY PRN PRN Reason: Allergies Magnesium Hydroxide (Milk Of Magnesium) 30 ml PO BIDPRN PRN PRN Reason: Constipation Metoprolol Succinate (Toprol Xl) 200 mg PO DAILY [facility] Last Admin: 07/25/17 10:31 Dose: 200 mg Mometasone Furoate/Formoterol Fumar (Dulera 200 Mcg/5 Mcg Inhaler) 1 puff INH BID-RT [facility] Last Admin: 07/25/17 07:22 Dose: 1 puff Polyethylene Glycol (Miralax) 17 gm PO DAILY PRN PRN Reason: Constipation Potassium Chloride (Klor-Con 10) 20 meq PO BID-WM [facility] Ranolazine (Ranexa) 1,000 mg PO BID [facility] Last Admin: 07/25/17 10:31 Dose: 1,000 mg Rosuvastatin Calcium (Crestor) 20 mg PO HS [facility] Last Admin: 07/24/17 21:24 Dose: 20 mg Sodium Chloride (Flush - Normal Saline) 10 ml IVF Q12HR [facility] Last Admin: 07/25/17 10:32 Dose: 10 ml Sodium Chloride (Flush - Normal Saline) 10 ml IVF PRN PRN PRN Reason: Saline Flush
--- NOTE | 2017-07-25 19:44 | PRG ---
DATE OF SERVICE: 07/25/2017 SUBJECTIVE: Mr. Waldo Summers continues to look better every day, sitting up in the chair today. OBJECTIVE: He is afebrile, heart rate is in the 50s. Blood pressure 164/85, respiratory rate is 18, oximetry is 96, blood pressure 132/70. LUNGS: Clear. NEUROLOGIC: Speech is slightly more fluent. LABORATORY DATA: White count 9.7, hemoglobin 11.7, platelets 185,000. Sodium 143, potassium 4.1, bi carb 28, BUN 31, creatinine 1.15. IMPRESSION: 1. Cerebrovascular accident, clinically slowly improving. 2. Pulmonary edema, improving on last radiograph. He has no clinical swallowing dysfunction, is hawk erating soft mechanical food at this time. Intake and output were not recorded essentially. He appears to be improving. We will continue curren t therapy pending placement.
[2017-07-25] MEDS: HumaLOG 300 UNITS/3 ML VIAL SC PRN (21:53)
[2017-07-26 05:57] LABS: Anion Gap 13 mmol/L (10-20); BUN (Urea Nitrogen) 22 mg/dL (8.4-25.7); Calc. Creatinine Clearance 78 mL/min (70-130); Calcium 9.3 mg/dL (7.8-10.44); Carbon Dioxide 27 mmol/L (23-31); Chloride 105 mmol/L (98-107); Estimated GFR-MDRD 59; Glucose 274 mg/dL (83-110); Potassium 3.3 mmol/L (3.5-5.1); Sodium 142 mmol/L (136-145)
[2017-07-26] MEDS: HumaLOG 300 UNITS/3 ML VIAL SC PRN (06:13)
[2017-07-26] MEDS: Mometasone/Formoterol 120 PUFF INHALER INH SCH ×2 (07:00→18:52)
[2017-07-26] MEDS: Ubidecarenone 50 MG CAP PO SCH (09:44)
[2017-07-26] MEDS: Potassium Chloride 10 MEQ TAB PO SCH ×2 (09:45→16:22)
[2017-07-26] MEDS: Amlodipine 5 MG TAB PO SCH (09:45)
[2017-07-26] MEDS: Folic Acid 1 MG TAB PO SCH (09:45)
--- NOTE | 2017-07-26 11:07 | CT ---
CT BRAIN WITHOUT CONTRAST: Date: 07/26/17 HISTORY: Follow-up intracerebral hemorrhage. COMPARISON: CT brain dated 07/23/17. FINDINGS: The right frontoparietal hemorrhagic infarction is similar. Surrounding vasogenic edema is similar. No new areas of hemorrhage or infarct. No interval progressive size increase. No midline shift or mas s effect. No significant effacement of the right lateral ventricle. Basilar cisterns are patent. Paranasal sinuses and mastoids are clear. IMPRESSION: Unchanged hemorrhagic infarction of the right frontoparietal lobe without significant mass effect. No new areas of hemorrhage or infarct. POS: [facility]
--- NOTE | 2017-07-26 12:04 | PDOC.PN ---
- Subjective Encounter Start Date: 07/26/17 Encounter Start Time: 12:02 Subjective: feels good. able to sit up for 2 hours.working w PT -: no problem w swollowing .left sided weakness persists -: no CP/SOB - Objective Resuscitation Status: Resuscitation Status DNR:Do Not Resuscitate MAR Reviewed: Yes Vital Signs & Weight: Vital Signs (12 hours) Temp Pulse Resp BP Pulse Ox 07/26/17 09:45 67 07/26/17 07:35 97.5 F L 67 18 133/65 97 07/26/17 07:00 68 18 98 07/26/17 03:50 97.4 F L 67 16 124/78 97 07/26/17 00:06 97.7 F 77 16 132/68 97 Weight Admit Weight 226 lb 12.8 oz Weight 230 lb 4.8 oz Most Recent Monitor Data Heart Rate from ECG 93 NIBP 160/84 NIBP BP-Mean 95 Respiration from ECG 20 SpO2 96 I&O: 07/25/17 07/26/17 07/27/17 06:59 06:59 06:59 Intake Total 970 Balance 970 Result Diagrams: 07/25/17 05:18 07/26/17 04:35 Additional Labs: Accuchecks 07/26/17 07/26/17 07/25/17 10:46 04:35 20:34 POC Glucose 184 H 247 H 218 H 07/25/17 16:32 POC Glucose 245 H Radiology Reviewed by me: Yes (Brain CT- stable ICH & infarct.no pregression.no new hemorrhage) Phys Exam - Physical Examination Constitutional: NAD HEENT: PERRLA, moist MMs, sclera anicteric, oral pharynx no lesions Neck: no nodes, no JVD, supple, full ROM Respiratory: no wheezing, no rales, no rhonchi, clear to auscultation bilateral Cardiovascular: irregular Gastrointestinal: soft, non-tender, no distention, positive bowel sounds Musculoskeletal: no edema, pulses present Neurological: normal sensation left facial droop & left hemiparesis Psychiatric: normal affect, A&O x 3 Skin: no rash Dx/Plan (1) Intracranial hemorrhage Code(s): I62.9 - NONTRAUMATIC INTRACRANIAL HEMORRHAGE, UNSPECIFIED Status: Acute Comment: Stable per CT today (2) Acute ischemic stroke Code(s): I63.9 - CEREBRAL INFARCTION, UNSPECIFIED Status: Acute Comment: s/ p TPA on 07/19/2017, microhemorrhage on MRI 07/20/17, holding anticoagulants for now, repeat CT 07/21/17 and 07/23/17 with slight interval worsening of ICH/ edema.repeat Ct 07/26 shows stable changes . (3) Diastolic CHF, acute on chronic Code(s): I50.33 - ACUTE ON CHRONIC DIASTOLIC (CONGESTIVE) HEART FAILURE Status : Resolved (4) CAD (coronary artery disease) Code(s): I25.10 - ATHSCL HEART DISEASE OF [place] CORONARY ARTERY W/O ANG PCTRS Status: Chronic Qualifiers: Coronary Disease-Associated Artery/Lesion type: [place] artery [place] vs. transplanted heart: seminole heart Associated angina: without angina Qualified Code(s): I25.10 - Atherosclerotic heart disease of [place] coronary artery without angina pectoris (5) RAMEZ (acute kidney injury) Code(s): N17.9 - ACUTE KIDNEY FAILURE, UNSPECIFIED Status: Resolved (6) COPD (chronic obstructive pulmonary disease) Status: Chronic (7) DM type 2 (diabetes mellitus, type 2) Status: Chronic Qualifiers: Diabetes mellitus complication status: with hyperglycemia (8) Dyslipidemia Code(s): E78.5 - HYPERLIPIDEMIA, UNSPECIFIED Status: Chronic (9) Hypokalemia Code(s): E87.6 - HYPOKALEMIA Status: Resolved Comment: resumed home potassium and recheck (10) Hypertension Code(s): I10 - ESSENTIAL (PRIMARY) HYPERTENSION Status: Chronic (11) Paroxysmal atrial fibrillation Code(s): I48.0 - PAROXYSMAL ATRIAL FIBRILLATION Status: Acute Comment: No anticoagulation due to ICH - Plan plan discussed w/ family, DVT proph w/SCDs Awaiting rehab placement. ICH stable.cont neuro checks. -: no ASA,AC given ICH.Pt is back in A-fib.cardiology following -: con meds as below. -: hemodynamically stable. DC to rehab when accepted * . Review of Systems - Review of Systems Constitutional: negative: fever, chills, sweats, weakness, malaise, other Eyes: negative: Pain, Vision Change, Conjunctivae Inflammation, Eyelid Inflammation, Redness, Other ENT: negative: Ear Pain, Ear Discharge, Nose Pain, Nose Discharge, Nose Congestion, Mouth Pain, Mouth Swelling, Throat Pain, Throat Swelling, Other Respiratory: negative: Cough, Dry, Shortness of Breath, Hemoptysis, SOB with Excertion, Pleuritic Pain, Sputum, Wheezing Cardiovascular: negative: chest pain, palpitations, orthopnea, paroxysmal nocturnal dyspnea, edema, light headedness, other Gastrointestinal: negative: Nausea, Vomiting, Abdominal Pain, Diarrhea, Constipation, Melena, Hematochezia, Other Genitourinary: negative: Dysuria, Frequency, Incontinence, Hematuria, Retention , Other Musculoskeletal: negative: Neck Pain, Shoulder Pain, Arm Pain, Back Pain, Hand Pain, Leg Pain, Foot Pain, Other Neurological: Weakness - Medications/Allergies Allergies/Adverse Reactions: Allergies Allergy/AdvReac Type Severity Reaction Status Date / Time No Known Allergies Allergy Verified 12/15/16 14:30 Medications: Current Medications Acetaminophen (Tylenol) 650 mg PO Q6H PRN PRN Reason: Headache/Fever or Pain Last Admin: 07/24/17 16:47 Dose: 650 mg Al Hydroxide/Mg Hydroxide (Maalox) 30 ml PO QIDPRN PRN PRN Reason: Dyspepsia Albuterol Sulfate (Proventil Hfa) 2 puff INH Q4H PRN PRN Reason: copd Albuterol/Ipratropium (Duoneb) 3 ml NEB [id number] PRN PRN Reason: SOB &/or Wheezing Amlodipine Besylate (Norvasc) 10 mg PO DAILY [facility] Last Admin: 07/26/17 09:45 Dose: 10 mg Bisacodyl (Dulcolax) 10 mg [place] DAILYPRN PRN PRN Reason: Constipation Coenzyme Q10 (Coenzyme Q10) 100 mg PO DAILY [facility] Last Admin: 07/26/17 09:44 Dose: 100 mg Dextrose/Water (Dextrose 50%) 25 gm SLOW IVP PRN PRN PRN Reason: Hypoglycemia Docusate Sodium (Colace) 100 mg PO BIDPRN PRN PRN Reason: Constipation Fluticasone Propionate (Flonase Nasal [place]) 0 gm NASAL PRN PRN PRN Reason: Allergies Folic Acid (Folvite) 1 mg PO DAILY [facility] Last Admin: 07/26/17 09:45 Dose: 1 mg Glucagon (Glucagon) 1 mg IM PRN PRN PRN Reason: Hypoglycemia Dextrose/Water (D5w) 1,000 mls @ 0 mls/hr IV .Q0M PRN; As Directed PRN Reason: Hypoglycemia Insulin Human Lispro (Humalog) 0 units SC .MILD SLIDING SCALE PRN PRN Reason: Mild Correctional Scale Last Admin: 07/26/17 06:13 Dose: 4 unit Labetalol HCl (Normodyne) 10 mg SLOW IVP Q2H PRN PRN Reason: SBP > 180 Last Admin: 07/21/17 05:18 Dose: 10 mg Loratadine (Claritin) 10 mg PO DAILY PRN PRN Reason: Allergies Magnesium Hydroxide (Milk Of Magnesium) 30 ml PO BIDPRN PRN PRN Reason: Constipation Metoprolol Succinate (Toprol Xl) 200 mg PO DAILY [facility] Last Admin: 07/26/17 09:45 Dose: 200 mg Mometasone Furoate/Formoterol Fumar (Dulera 200 Mcg/5 Mcg Inhaler) 1 puff INH BID-RT [facility] Last Admin: 07/26/17 07:00 Dose: 1 puff Polyethylene Glycol (Miralax) 17 gm PO DAILY PRN PRN Reason: Constipation Potassium Chloride (Klor-Con 10) 20 meq PO BID-WM [facility] Last Admin: 07/26/17 09:45 Dose: 20 meq Ranolazine (Ranexa) 1,000 mg PO BID [facility] Last Admin: 07/26/17 09:44 Dose: 1,000 mg Rosuvastatin Calcium (Crestor) 20 mg PO HS [facility] Last Admin: 07/25/17 21:03 Dose: 20 mg Sodium Chloride (Flush - Normal Saline) 10 ml IVF Q12HR [facility] Last Admin: 07/26/17 09:46 Dose: 10 ml Sodium Chloride (Flush - Normal Saline) 10 ml IVF PRN PRN PRN Reason: Saline Flush
--- NOTE | 2017-07-26 16:18 | PDOC.PULPN ---
Progress Note: Subj/Obj - Subjective Date: 07/26/17 Time: 16:16 Subjective: Doing well. No SOB. Swallowing continues to be difficult. Can't move Left arm or leg - ROS All systems: reviewed and no additional remarkable complaints except as stated ( none) - Objective Allergies/Adverse Reactions: Allergies Allergy/AdvReac Type Severity Reaction Status Date / Time No Known Allergies Allergy Verified 12/15/16 14:30 Medications: Current Medications Acetaminophen (Tylenol) 650 mg PO Q6H PRN PRN Reason: Headache/Fever or Pain Last Admin: 07/24/17 16:47 Dose: 650 mg Al Hydroxide/Mg Hydroxide (Maalox) 30 ml PO QIDPRN PRN PRN Reason: Dyspepsia Albuterol Sulfate (Proventil Hfa) 2 puff INH Q4H PRN PRN Reason: copd Albuterol/Ipratropium (Duoneb) 3 ml NEB [id number] PRN PRN Reason: SOB &/or Wheezing Amlodipine Besylate (Norvasc) 10 mg PO DAILY [facility] Last Admin: 07/26/17 09:45 Dose: 10 mg Bisacodyl (Dulcolax) 10 mg [place] DAILYPRN PRN PRN Reason: Constipation Coenzyme Q10 (Coenzyme Q10) 100 mg PO DAILY [facility] Last Admin: 07/26/17 09:44 Dose: 100 mg Dextrose/Water (Dextrose 50%) 25 gm SLOW IVP PRN PRN PRN Reason: Hypoglycemia Docusate Sodium (Colace) 100 mg PO BIDPRN PRN PRN Reason: Constipation Fluticasone Propionate (Flonase Nasal [place]) 0 gm NASAL PRN PRN PRN Reason: Allergies Folic Acid (Folvite) 1 mg PO DAILY [facility] Last Admin: 07/26/17 09:45 Dose: 1 mg Glucagon (Glucagon) 1 mg IM PRN PRN PRN Reason: Hypoglycemia Dextrose/Water (D5w) 1,000 mls @ 0 mls/hr IV .Q0M PRN; As Directed PRN Reason: Hypoglycemia Insulin Human Lispro (Humalog) 0 units SC .MILD SLIDING SCALE PRN PRN Reason: Mild Correctional Scale Last Admin: 07/26/17 06:13 Dose: 4 unit Labetalol HCl (Normodyne) 10 mg SLOW IVP Q2H PRN PRN Reason: SBP > 180 Last Admin: 07/21/17 05:18 Dose: 10 mg Loratadine (Claritin) 10 mg PO DAILY PRN PRN Reason: Allergies Magnesium Hydroxide (Milk Of Magnesium) 30 ml PO BIDPRN PRN PRN Reason: Constipation Metoprolol Succinate (Toprol Xl) 200 mg PO DAILY [facility] Last Admin: 07/26/17 09:45 Dose: 200 mg Mometasone Furoate/Formoterol Fumar (Dulera 200 Mcg/5 Mcg Inhaler) 1 puff INH BID-RT [facility] Last Admin: 07/26/17 07:00 Dose: 1 puff Polyethylene Glycol (Miralax) 17 gm PO DAILY PRN PRN Reason: Constipation Potassium Chloride (Klor-Con 10) 20 meq PO BID-WM [facility] Last Admin: 07/26/17 09:45 Dose: 20 meq Ranolazine (Ranexa) 1,000 mg PO BID [facility] Last Admin: 07/26/17 09:44 Dose: 1,000 mg Rosuvastatin Calcium (Crestor) 20 mg PO HS [facility] Last Admin: 07/25/17 21:03 Dose: 20 mg Sodium Chloride (Flush - Normal Saline) 10 ml IVF Q12HR [facility] Last Admin: 07/26/17 09:46 Dose: 10 ml Sodium Chloride (Flush - Normal Saline) 10 ml IVF PRN PRN PRN Reason: Saline Flush MAR Reviewed: Yes Vital Signs: Vital Signs Temp 97.6 F 07/26/17 15:58 Pulse 65 07/26/17 15:58 Resp 18 07/26/17 15:58 BP 139/70 07/26/17 15:58 Pulse Ox 95 07/26/17 15:58 Intake & Output 07/25/17 07/26/17 07/26/17 18:59 06:59 18:59 Weight 230 lb 4.8 oz Other: Voiding Method Diaper Diaper Diaper # Unmeasured Voids 1 # Urine Diapers 4 1 1 # Bowel Movement Diapers 1 Progress Note: Exam - Physical Exam HEENT: PERRLA, moist MMs, sclera anicteric Neck: no JVD Cardiovascular: RRR Respiratory: clear to auscultation bilaterally Gastrointestinal: soft, non-tender Musculoskeletal: no edema Deviation from normal: left hemiplegia Lymphatic: no nodes Psychiatric: normal affect, A&O x 3 Skin: no rash - Labs Result Diagrams: 07/25/17 05:18 07/26/17 04:35 Lab results: Laboratory Results - last 24 hr 07/25/17 07/25/17 07/26/17 16:32 20:34 04:35 Sodium 142 Potassium 3.3 L Chloride 105 Carbon Dioxide 27 Anion Gap 13 BUN 22 Creatinine 1.19 Estimated GFR (MDRD) 59 Glucose 274 H POC Glucose 245 H 218 H Calcium 9.3 Magnesium 07/26/17 07/26/17 07/26/17 04:35 04:35 10:46 Sodium Potassium Chloride Carbon Dioxide Anion Gap BUN Creatinine Estimated GFR (MDRD) Glucose POC Glucose 247 H 184 H Calcium Magnesium 1.8 Progress Note: A/P - Problems (1) Acute ischemic stroke Current Visit: Yes Status: Acute Code(s): I63.9 - CEREBRAL INFARCTION, UNSPECIFIED (2) Acute hypoxemic respiratory failure Current Visit: No Status: Acute Code(s): J96.01 - ACUTE RESPIRATORY FAILURE WITH HYPOXIA - Plan Plan: Doing better. Continue present care. To rehab soon.
[2017-07-27 05:19] LABS: Anion Gap 13 mmol/L (10-20); BUN (Urea Nitrogen) 20 mg/dL (8.4-25.7); Calc. Creatinine Clearance 85 mL/min (70-130); Carbon Dioxide 26 mmol/L (23-31); Chloride 106 mmol/L (98-107); Estimated GFR-MDRD 66; Glucose 165 mg/dL (83-110); Potassium 3.7 mmol/L (3.5-5.1); Sodium 141 mmol/L (136-145)
[2017-07-27] MEDS: HumaLOG 300 UNITS/3 ML VIAL SC PRN ×3 (05:26→18:04)
[2017-07-27 08:26] VITALS: BMI 28.8
[2017-07-27] MEDS: Ubidecarenone 50 MG CAP PO SCH (09:43)
[2017-07-27] MEDS: Folic Acid 1 MG TAB PO SCH (09:43)
[2017-07-27] MEDS: Potassium Chloride 10 MEQ TAB PO SCH ×2 (09:43→18:03)
[2017-07-27] MEDS: Amlodipine 5 MG TAB PO SCH (09:43)
--- NOTE | 2017-07-27 10:04 | PDOC.PULPN ---
Progress Note: Subj/Obj - Subjective Date: 07/27/17 Time: 10:03 - ROS Respiratory: no reported symptoms - Objective Allergies/Adverse Reactions: Allergies Allergy/AdvReac Type Severity Reaction Status Date / Time No Known Allergies Allergy Verified 12/15/16 14:30 Medications: Current Medications Acetaminophen (Tylenol) 650 mg PO Q6H PRN PRN Reason: Headache/Fever or Pain Last Admin: 07/24/17 16:47 Dose: 650 mg Al Hydroxide/Mg Hydroxide (Maalox) 30 ml PO QIDPRN PRN PRN Reason: Dyspepsia Albuterol Sulfate (Proventil Hfa) 2 puff INH Q4H PRN PRN Reason: copd Albuterol/Ipratropium (Duoneb) 3 ml NEB [id number] PRN PRN Reason: SOB &/or Wheezing Amlodipine Besylate (Norvasc) 10 mg PO DAILY [facility] Last Admin: 07/27/17 09:43 Dose: 10 mg Bisacodyl (Dulcolax) 10 mg [place] DAILYPRN PRN PRN Reason: Constipation Coenzyme Q10 (Coenzyme Q10) 100 mg PO DAILY [facility] Last Admin: 07/27/17 09:43 Dose: 100 mg Dextrose/Water (Dextrose 50%) 25 gm SLOW IVP PRN PRN PRN Reason: Hypoglycemia Docusate Sodium (Colace) 100 mg PO BIDPRN PRN PRN Reason: Constipation Fluticasone Propionate (Flonase Nasal [place]) 0 gm NASAL PRN PRN PRN Reason: Allergies Folic Acid (Folvite) 1 mg PO DAILY [facility] Last Admin: 07/27/17 09:43 Dose: 1 mg Glucagon (Glucagon) 1 mg IM PRN PRN PRN Reason: Hypoglycemia Dextrose/Water (D5w) 1,000 mls @ 0 mls/hr IV .Q0M PRN; As Directed PRN Reason: Hypoglycemia Insulin Human Lispro (Humalog) 0 units SC .MILD SLIDING SCALE PRN PRN Reason: Mild Correctional Scale Last Admin: 07/27/17 05:26 Dose: 2 unit Labetalol HCl (Normodyne) 10 mg SLOW IVP Q2H PRN PRN Reason: SBP > 180 Last Admin: 07/21/17 05:18 Dose: 10 mg Loratadine (Claritin) 10 mg PO DAILY PRN PRN Reason: Allergies Magnesium Hydroxide (Milk Of Magnesium) 30 ml PO BIDPRN PRN PRN Reason: Constipation Metoprolol Succinate (Toprol Xl) 200 mg PO DAILY [facility] Last Admin: 07/27/17 09:43 Dose: 200 mg Mometasone Furoate/Formoterol Fumar (Dulera 200 Mcg/5 Mcg Inhaler) 1 puff INH BID-RT [facility] Last Admin: 07/26/17 18:52 Dose: 1 puff Polyethylene Glycol (Miralax) 17 gm PO DAILY PRN PRN Reason: Constipation Potassium Chloride (Klor-Con 10) 20 meq PO BID-WM [facility] Last Admin: 07/27/17 09:43 Dose: 20 meq Ranolazine (Ranexa) 1,000 mg PO BID [facility] Last Admin: 07/27/17 09:42 Dose: 1,000 mg Rosuvastatin Calcium (Crestor) 20 mg PO HS [facility] Last Admin: 07/26/17 20:07 Dose: 20 mg Sodium Chloride (Flush - Normal Saline) 10 ml IVF Q12HR [facility] Last Admin: 07/27/17 09:43 Dose: Not Given Sodium Chloride (Flush - Normal Saline) 10 ml IVF PRN PRN PRN Reason: Saline Flush MAR Reviewed: Yes Vital Signs: Vital Signs Temp 97.7 F 07/27/17 07:34 Pulse 70 07/27/17 09:43 Resp 18 07/27/17 07:34 BP 132/72 07/27/17 07:34 Pulse Ox 97 07/27/17 07:34 Intake & Output 07/26/17 07/27/17 07/27/17 18:59 06:59 18:59 Intake Total 625 Output Total 1 Balance 624 Weight 230 lb 12.8 oz 230 lb 12.8 oz Intake: Intake, IV Amount 0 Oral 625 Output: Urine/Stool Mix 1 Other: Voiding Method Diaper Diaper # Unmeasured Voids 1 1 # Urine Diapers 1 3 Progress Note: Exam - Physical Exam HEENT: PERRLA, sclera anicteric Neck: no JVD Cardiovascular: RRR Respiratory: clear to auscultation bilaterally Gastrointestinal: soft, non-tender Musculoskeletal: no edema Deviation from normal: L hemiplegia Psychiatric: normal affect, A&O x 3 Skin: no rash - Labs Result Diagrams: 07/25/17 05:18 07/27/17 04:27 Lab results: Laboratory Results - last 24 hr 07/26/17 07/26/17 07/26/17 10:46 17:17 20:07 Sodium Potassium Chloride Carbon Dioxide Anion Gap BUN Creatinine Estimated GFR (MDRD) Glucose POC Glucose 184 H 151 H 154 H Calcium 07/27/17 07/27/17 07/27/17 02:19 04:27 05:24 Sodium 141 Potassium 3.7 Chloride 106 Carbon Dioxide 26 Anion Gap 13 BUN 20 Creatinine 1.09 Estimated GFR (MDRD) 66 Glucose 165 H POC Glucose 154 H 164 H Calcium 9.0 Progress Note: A/P - Problems (1) Acute ischemic stroke Current Visit: Yes Status: Acute Code(s): I63.9 - CEREBRAL INFARCTION, UNSPECIFIED (2) Acute hypoxemic respiratory failure Current Visit: Yes Status: Acute Code(s): J96.01 - ACUTE RESPIRATORY FAILURE WITH HYPOXIA - Plan Plan: continue present care
[2017-07-27] MEDS: Mometasone/Formoterol 120 PUFF INHALER INH SCH ×2 (10:29→19:24)
--- NOTE | 2017-07-27 13:03 | PDOC.PN ---
- Subjective Encounter Start Date: 07/27/17 Encounter Start Time: 14:11 -: non-verbal, old records requested/rev Subjective: Pt seen and examined for ICH, Left side Hemiparesis -: Slurred speech, Swallowing well, PT working with him - Objective Resuscitation Status: Resuscitation Status DNR:Do Not Resuscitate MAR Reviewed: Yes Vital Signs & Weight: Vital Signs (12 hours) Temp Pulse Resp BP BP BP BP 07/27/17 11:56 98.1 F 73 18 133/71 07/27/17 09:43 70 07/27/17 08:44 158/86 H 162/82 H 07/27/17 08:00 97.7 F 70 18 07/27/17 07:34 97.7 F 70 18 132/72 07/27/17 04:05 98.4 F 67 18 130/71 Pulse Ox 07/27/17 11:56 99 07/27/17 09:43 07/27/17 08:44 07/27/17 08:00 07/27/17 07:34 97 07/27/17 04:05 96 Weight Admit Weight 226 lb 12.8 oz Weight 230 lb 12.8 oz Most Recent Monitor Data Heart Rate from ECG 93 NIBP 160/84 NIBP BP-Mean 95 Respiration from ECG 20 SpO2 96 I&O: 07/26/17 07/27/17 07/28/17 06:59 06:59 06:59 Intake Total 625 Output Total 1 Balance 624 Result Diagrams: 07/25/17 05:18 07/27/17 04:27 Additional Labs: Accuchecks 07/27/17 07/27/17 07/27/17 10:20 05:24 02:19 POC Glucose 237 H 164 H 154 H 07/26/17 07/26/17 20:07 17:17 POC Glucose 154 H 151 H Radiology Reviewed by me: Yes Phys Exam - Physical Examination HEENT: PERRLA, moist MMs, sclera anicteric, TM's clear, oral pharynx no lesions , 2+ tonsils Neck: no nodes, no JVD, supple, full ROM Respiratory: no wheezing, no rales, no rhonchi, wheezing present, clear to auscultation bilateral Cardiovascular: RRR, no significant murmur, no rub, gallop, irregular Gastrointestinal: soft, non-tender, no distention, positive bowel sounds Musculoskeletal: no edema, pulses present, edema present Neurological: non-focal (Weakness Left side with slurred speech), normal sensation, moves all 4 limbs Dx/Plan (1) Acute ischemic stroke Code(s): I63.9 - CEREBRAL INFARCTION, UNSPECIFIED Status: Acute Comment: s/ p TPA on 07/19/2017, microhemorrhage on MRI 07/20/17, holding anticoagulants for now, repeat CT 07/21/17 and 07/23/17 with slight interval worsening of ICH/ edema.repeat Ct 07/26 shows stable changes . (2) Intracranial hemorrhage Code(s): I62.9 - NONTRAUMATIC INTRACRANIAL HEMORRHAGE, UNSPECIFIED Status: Acute Comment: Stable per CT today (3) Paroxysmal atrial fibrillation Code(s): I48.0 - PAROXYSMAL ATRIAL FIBRILLATION Status: Acute Comment: No anticoagulation due to ICH (4) RAMEZ (acute kidney injury) Code(s): N17.9 - ACUTE KIDNEY FAILURE, UNSPECIFIED Status: Resolved (5) A-fib Code(s): I48.91 - UNSPECIFIED ATRIAL FIBRILLATION Status: Acute Qualifiers: Atrial fibrillation type: paroxysmal Qualified Code(s): I48.0 - Paroxysmal atrial fibrillation (6) Hypomagnesemia Code(s): E83.42 - HYPOMAGNESEMIA Status: Acute - Plan cont current plan of care, plan discussed w/ family, PT/OT, speech therapy, incentive spirometry, DVT proph w/SCDs PlanPlan ICH) PT.OT Consulted Follow UP CT scan did not show much changes continue curent management Review of Systems - Review of Systems Constitutional: negative: fever, chills, sweats, weakness, malaise, other Eyes: Pain, Vision Change, Conjunctivae Inflammation, Eyelid Inflammation, Redness, Other ENT: Mouth Pain. negative: Ear Pain, Ear Discharge, Nose Pain, Nose Discharge, Nose Congestion, Mouth Swelling, Throat Pain, Throat Swelling, Other Respiratory: Cough. negative: Dry, Shortness of Breath, Hemoptysis, SOB with Excertion, Pleuritic Pain, Sputum, Wheezing Cardiovascular: negative: chest pain, palpitations, orthopnea, paroxysmal nocturnal dyspnea, edema, light headedness, other Gastrointestinal: negative: Nausea, Vomiting, Abdominal Pain, Diarrhea, Constipation, Melena, Hematochezia, Other Genitourinary: negative: Dysuria, Frequency, Incontinence, Hematuria, Retention , Other Musculoskeletal: negative: Neck Pain, Shoulder Pain, Arm Pain, Back Pain, Hand Pain, Leg Pain, Foot Pain, Other Skin: Rash, Lesions, Shawn, Bruising, Other Neurological: Weakness, Numbness, Incoordination, Change in Speech. negative: Confusion, Seizures, Other - Medications/Allergies Allergies/Adverse Reactions: Allergies Allergy/AdvReac Type Severity Reaction Status Date / Time No Known Allergies Allergy Verified 12/15/16 14:30 Medications: Current Medications Acetaminophen (Tylenol) 650 mg PO Q6H PRN PRN Reason: Headache/Fever or Pain Last Admin: 07/24/17 16:47 Dose: 650 mg Al Hydroxide/Mg Hydroxide (Maalox) 30 ml PO QIDPRN PRN PRN Reason: Dyspepsia Albuterol Sulfate (Proventil Hfa) 2 puff INH Q4H PRN PRN Reason: copd Albuterol/Ipratropium (Duoneb) 3 ml NEB [id number] PRN PRN Reason: SOB &/or Wheezing Amlodipine Besylate (Norvasc) 10 mg PO DAILY [facility]CLUDES [facility] Last Admin: 07/27/17 09:43 Dose: 10 mg Bisacodyl (Dulcolax) 10 mg [place] DAILYPRN PRN PRN Reason: Constipation Coenzyme Q10 (Coenzyme Q10) 100 mg PO DAILY [facility]CLUDES [facility] Last Admin: 07/27/17 09:43 Dose: 100 mg Dextrose/Water (Dextrose 50%) 25 gm SLOW IVP PRN PRN PRN Reason: Hypoglycemia Docusate Sodium (Colace) 100 mg PO BIDPRN PRN PRN Reason: Constipation Fluticasone Propionate (Flonase Nasal [place]) 0 gm NASAL PRN PRN PRN Reason: Allergies Folic Acid (Folvite) 1 mg PO DAILY [facility] Last Admin: 07/27/17 09:43 Dose: 1 mg Glucagon (Glucagon) 1 mg IM PRN PRN PRN Reason: Hypoglycemia Dextrose/Water (D5w) 1,000 mls @ 0 mls/hr IV .Q0M PRN; As Directed PRN Reason: Hypoglycemia Insulin Human Lispro (Humalog) 0 units SC .MILD SLIDING SCALE PRN PRN Reason: Mild Correctional Scale Last Admin: 07/27/17 13:50 Dose: 4 unit Labetalol HCl (Normodyne) 10 mg SLOW IVP Q2H PRN PRN Reason: SBP > 180 Last Admin: 07/21/17 05:18 Dose: 10 mg Loratadine (Claritin) 10 mg PO DAILY PRN PRN Reason: Allergies Magnesium Hydroxide (Milk Of Magnesium) 30 ml PO BIDPRN PRN PRN Reason: Constipation Metoprolol Succinate (Toprol Xl) 200 mg PO DAILY [facility] Last Admin: 07/27/17 09:43 Dose: 200 mg Mometasone Furoate/Formoterol Fumar (Dulera 200 Mcg/5 Mcg Inhaler) 1 puff INH BID-RT [facility]CLUD[facility] Last Admin: 07/27/17 10:29 Dose: 1 puff Polyethylene Glycol (Miralax) 17 gm PO DAILY PRN PRN Reason: Constipation Potassium Chloride (Klor-Con 10) 20 meq PO BID-WM COUNT [facility]CLUDES [facility] Last Admin: 07/27/17 09:43 Dose: 20 meq Ranolazine (Ranexa) 1,000 mg PO BID [facility] Last Admin: 07/27/17 09:42 Dose: 1,000 mg Rosuvastatin Calcium (Crestor) 20 mg PO HS [facility] Last Admin: 07/26/17 20:07 Dose: 20 mg Sodium Chloride (Flush - Normal Saline) 10 ml IVF Q12HR [facility]CLUD[facility] Last Admin: 07/27/17 09:43 Dose: Not Given Sodium Chloride (Flush - Normal Saline) 10 ml IVF PRN PRN PRN Reason: Saline Flush
[2017-07-27] MEDS: Acetaminophen 325 MG TAB PO PRN (18:08)
[2017-07-28 06:16] LABS: Anion Gap 12 mmol/L (10-20); BUN (Urea Nitrogen) 17 mg/dL (8.4-25.7); Calc. Creatinine Clearance 93 mL/min (70-130); Calcium 9.6 mg/dL (7.8-10.44); Carbon Dioxide 28 mmol/L (23-31); Chloride 104 mmol/L (98-107); Estimated GFR-MDRD 73; Glucose 170 mg/dL (83-110); Potassium 3.9 mmol/L (3.5-5.1); Sodium 140 mmol/L (136-145)
[2017-07-28] MEDS: Mometasone/Formoterol 120 PUFF INHALER INH SCH ×2 (06:56→19:59)
[2017-07-28] MEDS: Ubidecarenone 50 MG CAP PO SCH (10:05)
[2017-07-28] MEDS: Folic Acid 1 MG TAB PO SCH (10:06)
[2017-07-28] MEDS: Potassium Chloride 10 MEQ TAB PO SCH ×2 (10:06→18:39)
[2017-07-28] MEDS: Amlodipine 5 MG TAB PO SCH (10:06)
[2017-07-28] MEDS: HumaLOG 300 UNITS/3 ML VIAL SC PRN (11:28)
--- NOTE | 2017-07-28 14:40 | PDOC.PN ---
- Subjective Encounter Start Date: 07/28/17 Encounter Start Time: 14:39 Subjective: Pt seen and examined for ICH -: Feeling much better today -: PT worked with him - Objective Resuscitation Status: Resuscitation Status DNR:Do Not Resuscitate MAR Reviewed: Yes Vital Signs & Weight: Vital Signs (12 hours) Temp Pulse Resp BP BP BP Pulse Ox 07/28/17 12:19 97.6 F 63 18 143/74 H 94 L 07/28/17 10:06 72 07/28/17 09:08 148/52 H 150/72 H 07/28/17 08:00 98.1 F 72 18 07/28/17 07:49 98.6 F 72 18 132/68 92 L 07/28/17 04:08 97.5 F L 64 20 122/68 97 Weight Admit Weight 226 lb 12.8 oz Weight 230 lb 11.2 oz Most Recent Monitor Data Heart Rate from ECG 93 NIBP 160/84 NIBP BP-Mean 95 Respiration from ECG 20 SpO2 96 I&O: 07/27/17 07/28/17 07/29/17 06:59 06:59 06:59 Intake Total 625 1450 Output Total 1 Balance 624 1450 Result Diagrams: 07/25/17 05:18 07/28/17 05:18 Additional Labs: Accuchecks 07/28/17 07/28/17 07/27/17 10:44 05:19 20:41 POC Glucose 261 H 157 H 133 H 07/27/17 17:34 POC Glucose 177 H Phys Exam - Physical Examination HEENT: PERRLA, moist MMs, sclera anicteric, TM's clear, oral pharynx no lesions , 2+ tonsils Neck: no nodes, no JVD, supple, full ROM Respiratory: no wheezing, no rales, no rhonchi, wheezing present, clear to auscultation bilateral Cardiovascular: RRR, no significant murmur, no rub, gallop, irregular Gastrointestinal: soft, non-tender, no distention, positive bowel sounds Musculoskeletal: no edema, pulses present, edema present Neurological: non-focal, normal sensation, moves all 4 limbs Weakness of left side , slurred speech Dx/Plan (1) Acute ischemic stroke Code(s): I63.9 - CEREBRAL INFARCTION, UNSPECIFIED Status: Acute Comment: s/ p TPA on 07/19/2017, microhemorrhage on MRI 07/20/17, holding anticoagulants for now, repeat CT 07/21/17 and 07/23/17 with slight interval worsening of ICH/ edema.repeat Ct 07/26 shows stable changes . (2) Intracranial hemorrhage Code(s): I62.9 - NONTRAUMATIC INTRACRANIAL HEMORRHAGE, UNSPECIFIED Status: Acute Comment: Stable per CT today (3) Paroxysmal atrial fibrillation Code(s): I48.0 - PAROXYSMAL ATRIAL FIBRILLATION Status: Acute Comment: No anticoagulation due to ICH (4) RAMEZ (acute kidney injury) Code(s): N17.9 - ACUTE KIDNEY FAILURE, UNSPECIFIED Status: Resolved (5) A-fib Code(s): I48.91 - UNSPECIFIED ATRIAL FIBRILLATION Status: Acute Qualifiers: Atrial fibrillation type: paroxysmal Qualified Code(s): I48.0 - Paroxysmal atrial fibrillation (6) Hypomagnesemia Code(s): E83.42 - HYPOMAGNESEMIA Status: Acute - Plan cont current plan of care, plan discussed w/ family Continue PT/OT consult -: Continue Amlodipine and Metorolol for BP control -: Awaiting rehab once accepted * . Review of Systems - Medications/Allergies Allergies/Adverse Reactions: Allergies Allergy/AdvReac Type Severity Reaction Status Date / Time No Known Allergies Allergy Verified 12/15/16 14:30 Medications: Current Medications Acetaminophen (Tylenol) 650 mg PO Q6H PRN PRN Reason: Headache/Fever or Pain Last Admin: 07/27/17 18:08 Dose: 650 mg Al Hydroxide/Mg Hydroxide (Maalox) 30 ml PO QIDPRN PRN PRN Reason: Dyspepsia Albuterol Sulfate (Proventil Hfa) 2 puff INH Q4H PRN PRN Reason: copd Albuterol/Ipratropium (Duoneb) 3 ml NEB [id number] PRN PRN Reason: SOB &/or Wheezing Amlodipine Besylate (Norvasc) 10 mg PO DAILY [facility] Last Admin: 07/28/17 10:06 Dose: 10 mg Bisacodyl (Dulcolax) 10 mg [place] DAILYPRN PRN PRN Reason: Constipation Coenzyme Q10 (Coenzyme Q10) 100 mg PO DAILY [facility] Last Admin: 07/28/17 10:05 Dose: 100 mg Dextrose/Water (Dextrose 50%) 25 gm SLOW IVP PRN PRN PRN Reason: Hypoglycemia Docusate Sodium (Colace) 100 mg PO BIDPRN PRN PRN Reason: Constipation Fluticasone Propionate (Flonase Nasal [place]) 0 gm NASAL PRN PRN PRN Reason: Allergies Folic Acid (Folvite) 1 mg PO DAILY [facility] Last Admin: 07/28/17 10:06 Dose: 1 mg Glucagon (Glucagon) 1 mg IM PRN PRN PRN Reason: Hypoglycemia Dextrose/Water (D5w) 1,000 mls @ 0 mls/hr IV .Q0M PRN; As Directed PRN Reason: Hypoglycemia Insulin Human Lispro (Humalog) 0 units SC .MILD SLIDING SCALE PRN PRN Reason: Mild Correctional Scale Last Admin: 07/28/17 11:28 Dose: 6 unit Labetalol HCl (Normodyne) 10 mg SLOW IVP Q2H PRN PRN Reason: SBP > 180 Last Admin: 07/21/17 05:18 Dose: 10 mg Loratadine (Claritin) 10 mg PO DAILY PRN PRN Reason: Allergies Magnesium Hydroxide (Milk Of Magnesium) 30 ml PO BIDPRN PRN PRN Reason: Constipation Metoprolol Succinate (Toprol Xl) 200 mg PO DAILY [facility] Last Admin: 07/28/17 10:05 Dose: 200 mg Mometasone Furoate/Formoterol Fumar (Dulera 200 Mcg/5 Mcg Inhaler) 1 puff INH BID-RT [facility] Last Admin: 07/28/17 06:56 Dose: 1 puff Polyethylene Glycol (Miralax) 17 gm PO DAILY PRN PRN Reason: Constipation Potassium Chloride (Klor-Con 10) 20 meq PO BID-WM [facility] Last Admin: 07/28/17 10:06 Dose: 20 meq Ranolazine (Ranexa) 1,000 mg PO BID [facility] Last Admin: 07/28/17 10:06 Dose: 1,000 mg Rosuvastatin Calcium (Crestor) 20 mg PO HS [facility] Last Admin: 07/27/17 20:41 Dose: 20 mg Sodium Chloride (Flush - Normal Saline) 10 ml IVF Q12HR [facility] Last Admin: 07/28/17 10:07 Dose: Not Given Sodium Chloride (Flush - Normal Saline) 10 ml IVF PRN PRN PRN Reason: Saline Flush
--- NOTE | 2017-07-28 14:53 | PDOC.PN ---
- Subjective Encounter Start Date: 07/28/17 Encounter Start Time: 14:51 Subjective: Pt seen and examined -: sitting in chair -: denies any Chest pain SOB - Objective Resuscitation Status: Resuscitation Status DNR:Do Not Resuscitate MAR Reviewed: Yes Vital Signs & Weight: Vital Signs (12 hours) Temp Pulse Resp BP BP BP Pulse Ox 07/28/17 12:19 97.6 F 63 18 143/74 H 94 L 07/28/17 10:06 72 07/28/17 09:08 148/52 H 150/72 H 07/28/17 08:00 98.1 F 72 18 07/28/17 07:49 98.6 F 72 18 132/68 92 L 07/28/17 04:08 97.5 F L 64 20 122/68 97 Weight Admit Weight 226 lb 12.8 oz Weight 230 lb 11.2 oz Most Recent Monitor Data Heart Rate from ECG 93 NIBP 160/84 NIBP BP-Mean 95 Respiration from ECG 20 SpO2 96 I&O: 07/27/17 07/28/17 07/29/17 06:59 06:59 06:59 Intake Total 625 1450 Output Total 1 Balance 624 1450 Result Diagrams: 07/25/17 05:18 07/28/17 05:18 Additional Labs: Accuchecks 07/28/17 07/28/17 07/27/17 10:44 05:19 20:41 POC Glucose 261 H 157 H 133 H 07/27/17 17:34 POC Glucose 177 H Phys Exam - Physical Examination Neck: no nodes, no JVD, supple, full ROM Respiratory: no wheezing, no rales, no rhonchi, wheezing present, clear to auscultation bilateral Cardiovascular: RRR, no significant murmur, no rub, gallop, irregular Gastrointestinal: soft, non-tender, no distention, positive bowel sounds Musculoskeletal: no edema, pulses present, edema present Dx/Plan (1) Acute ischemic stroke Code(s): I63.9 - CEREBRAL INFARCTION, UNSPECIFIED Status: Acute Comment: s/ p TPA on 07/19/2017, microhemorrhage on MRI 07/20/17, holding anticoagulants for now, repeat CT 07/21/17 and 07/23/17 with slight interval worsening of ICH/ edema.repeat Ct 07/26 shows stable changes . (2) Intracranial hemorrhage Code(s): I62.9 - NONTRAUMATIC INTRACRANIAL HEMORRHAGE, UNSPECIFIED Status: Acute Comment: Stable per CT today (3) Paroxysmal atrial fibrillation Code(s): I48.0 - PAROXYSMAL ATRIAL FIBRILLATION Status: Acute Comment: No anticoagulation due to ICH (4) RAEMZ (acute kidney injury) Code(s): N17.9 - ACUTE KIDNEY FAILURE, UNSPECIFIED Status: Resolved (5) A-fib Code(s): I48.91 - UNSPECIFIED ATRIAL FIBRILLATION Status: Acute Qualifiers: Atrial fibrillation type: paroxysmal Qualified Code(s): I48.0 - Paroxysmal atrial fibrillation (6) Hypomagnesemia Code(s): E83.42 - HYPOMAGNESEMIA Status: Acute - Plan * .
[2017-07-28] MEDS ORDERED: Bisacodyl 10 MG SUPP PR PRN (16:02)
[2017-07-28] MEDS ORDERED: Mag-Al 1200 mg/1200 mg/30 ML UDCUP PO PRN (16:02)
[2017-07-28] MEDS ORDERED: Docusate 100 MG CAP PO PRN (16:02)
[2017-07-28] MEDS ORDERED: Milk Of Magnesia 30 ML UDCUP PO PRN (16:03)
[2017-07-28] MEDS ORDERED: Labetalol HCl 100 MG/20 ML VIAL SLOW IVP PRN (16:03)
[2017-07-28] MEDS ORDERED: Dextrose 5% in Water 1,000 ML IV PRN (16:03)
[2017-07-28] MEDS ORDERED: Dextrose 50% Abboject 50 ML SYRINGE SLOW IVP PRN (16:03)
[2017-07-28] MEDS ORDERED: Fluticasone Propionate Nasal Spray 16 gm Bottle NASAL PRN (16:04)
[2017-07-28] MEDS ORDERED: Polyethylene Glycol 3350 17 GM Packet PO PRN (16:04)
[2017-07-28] MEDS ORDERED: Loratadine 10 MG TAB PO PRN (16:04)
[2017-07-28] MEDS ORDERED: PROVENTIL INHALER 6.7 G (200 INHALATIONS) INH PRN (16:04)
[2017-07-28] MEDS: Acetaminophen 325 MG TAB PO PRN (21:14)
[2017-07-29 06:05] LABS: Anion Gap 12 mmol/L (10-20); BUN (Urea Nitrogen) 18 mg/dL (8.4-25.7); Calc. Creatinine Clearance 89 mL/min (70-130); Calcium 9.7 mg/dL (7.8-10.44); Carbon Dioxide 27 mmol/L (23-31); Chloride 100 mmol/L (98-107); Estimated GFR-MDRD 69; Glucose 199 mg/dL (83-110); Potassium 3.7 mmol/L (3.5-5.1); Sodium 135 mmol/L (136-145)
[2017-07-29] MEDS: HumaLOG 300 UNITS/3 ML VIAL SC PRN ×2 (06:06→18:47)
[2017-07-29] MEDS: Mometasone/Formoterol 120 PUFF INHALER INH SCH ×2 (07:10→19:10)
[2017-07-29] MEDS ORDERED: Folic Acid 1 MG TAB PO SCH (09:00)
[2017-07-29] MEDS ORDERED: Ubidecarenone 50 MG CAP PO SCH (09:00)
[2017-07-29] MEDS ORDERED: Amlodipine 5 MG TAB PO SCH (09:00)
[2017-07-29] MEDS: Potassium Chloride 10 MEQ TAB PO SCH ×2 (10:28→18:47)
[2017-07-29] MEDS: Acetaminophen 325 MG TAB PO PRN ×2 (13:31→21:21)
--- NOTE | 2017-07-29 19:16 | PDOC.PN ---
- Subjective Encounter Start Date: 07/29/17 Encounter Start Time: 19:14 Subjective: pt seen and examined for ICH with left side hemiparesis - Objective Resuscitation Status: Resuscitation Status DNR:Do Not Resuscitate Vital Signs & Weight: Vital Signs (12 hours) Temp Pulse Pulse Pulse Resp BP BP 07/29/17 15:43 98.2 F 69 18 07/29/17 11:42 98.3 F 72 18 07/29/17 11:21 65 60 136/72 144/79 H 07/29/17 07:57 97.6 F 63 16 07/29/17 07:50 97.5 F L 96 18 BP Pulse Ox 07/29/17 15:43 130/62 97 07/29/17 11:42 144/79 H 99 07/29/17 11:21 07/29/17 07:57 151/80 H 98 07/29/17 07:50 Weight Admit Weight 226 lb 12.8 oz Weight 230 lb 11.2 oz Most Recent Monitor Data Heart Rate from ECG 93 NIBP 160/84 NIBP BP-Mean 95 Respiration from ECG 20 SpO2 96 I&O: 07/28/17 07/29/17 07/30/17 06:59 06:59 06:59 Intake Total 1450 550 Balance 1450 550 Result Diagrams: 07/25/17 05:18 07/29/17 04:48 Additional Labs: Accuchecks 07/29/17 07/29/17 07/29/17 17:17 11:11 04:48 POC Glucose 204 H 223 H 193 H 07/28/17 21:45 POC Glucose 141 H Phys Exam - Physical Examination HEENT: PERRLA, moist MMs, sclera anicteric, TM's clear, oral pharynx no lesions , 2+ tonsils Neck: no nodes, no JVD, supple, full ROM Respiratory: no wheezing, no rales, no rhonchi, wheezing present, clear to auscultation bilateral Cardiovascular: RRR, no significant murmur, no rub, gallop, irregular Gastrointestinal: soft, non-tender, no distention, positive bowel sounds Musculoskeletal: no edema, pulses present Left side hemiparesis and slurred speech Dx/Plan (1) Acute ischemic stroke Code(s): I63.9 - CEREBRAL INFARCTION, UNSPECIFIED Status: Acute Comment: s/ p TPA on 07/19/2017, microhemorrhage on MRI 07/20/17, holding anticoagulants for now, repeat CT 07/21/17 and 07/23/17 with slight interval worsening of ICH/ edema.repeat Ct 07/26 shows stable changes . (2) Intracranial hemorrhage Code(s): I62.9 - NONTRAUMATIC INTRACRANIAL HEMORRHAGE, UNSPECIFIED Status: Acute Comment: Stable per CT today (3) Paroxysmal atrial fibrillation Code(s): I48.0 - PAROXYSMAL ATRIAL FIBRILLATION Status: Acute Comment: No anticoagulation due to ICH (4) RAMEZ (acute kidney injury) Code(s): N17.9 - ACUTE KIDNEY FAILURE, UNSPECIFIED Status: Resolved (5) A-fib Code(s): I48.91 - UNSPECIFIED ATRIAL FIBRILLATION Status: Acute Qualifiers: Atrial fibrillation type: paroxysmal Qualified Code(s): I48.0 - Paroxysmal atrial fibrillation (6) Hypomagnesemia Code(s): E83.42 - HYPOMAGNESEMIA Status: Acute - Plan cont current plan of care, plan discussed w/ family, PT/OT, speech therapy Continue Lisinopril, metoprol for BP control -: PT/OT for Acute CVA with Left hemiparesis * . Review of Systems - Medications/Allergies Allergies/Adverse Reactions: Allergies Allergy/AdvReac Type Severity Reaction Status Date / Time No Known Allergies Allergy Verified 12/15/16 14:30 Medications: Current Medications Acetaminophen (Tylenol) 650 mg PO Q6H PRN PRN Reason: Headache/Fever or Pain Last Admin: 07/29/17 13:31 Dose: 650 mg Al Hydroxide/Mg Hydroxide (Maalox) 30 ml PO QIDPRN PRN PRN Reason: Dyspepsia Albuterol Sulfate (Proventil Hfa) 2 puff INH Q4H PRN PRN Reason: copd Albuterol/Ipratropium (Duoneb) 3 ml NEB [id number] PRN PRN Reason: SOB &/or Wheezing Amlodipine Besylate (Norvasc) 5 mg PO DAILY [facility] Bisacodyl (Dulcolax) 10 mg [place] DAILYPRN PRN PRN Reason: Constipation Coenzyme Q10 (Coenzyme Q10) 100 mg PO DAILY [facility] Last Admin: 07/29/17 10:27 Dose: 100 mg Dextrose/Water (Dextrose 50%) 25 gm SLOW IVP PRN PRN PRN Reason: Hypoglycemia Docusate Sodium (Colace) 100 mg PO BIDPRN PRN PRN Reason: Constipation Last Admin: 07/29/17 02:05 Dose: 100 mg Fluticasone Propionate (Flonase Nasal [place]) 0 gm NASAL PRN PRN PRN Reason: Allergies Folic Acid (Folvite) 1 mg PO DAILY [facility] Last Admin: 07/29/17 10:28 Dose: 1 mg Glucagon (Glucagon) 1 mg IM PRN PRN PRN Reason: Hypoglycemia Hydralazine HCl (Apresoline) 100 mg PO BID [facility] Dextrose/Water (D5w) 1,000 mls @ 0 mls/hr IV .Q0M PRN; As Directed PRN Reason: Hypoglycemia Insulin Human Lispro (Humalog) 0 units SC .MILD SLIDING SCALE PRN PRN Reason: Mild Correctional Scale Last Admin: 07/29/17 18:47 Dose: 4 unit Isosorbide Mononitrate (Imdur) 60 mg PO DAILY [facility] Labetalol HCl (Normodyne) 10 mg SLOW IVP Q2H PRN PRN Reason: SBP > 180 Lisinopril (Zestril) 20 mg PO BID [facility] Loratadine (Claritin) 10 mg PO DAILY PRN PRN Reason: Allergies Magnesium Hydroxide (Milk Of Magnesium) 30 ml PO BIDPRN PRN PRN Reason: Constipation Metoprolol Succinate (Toprol Xl) 200 mg PO DAILY [facility] Last Admin: 07/29/17 10:27 Dose: 200 mg Mometasone Furoate/Formoterol Fumar (Dulera 200 Mcg/5 Mcg Inhaler) 1 puff INH BID-RT [facility] Last Admin: 07/29/17 19:10 Dose: 1 puff Linzess 290 Mcg Cap 1 each PO DAILY [facility] Polyethylene Glycol (Miralax) 17 gm PO DAILY PRN PRN Reason: Constipation Potassium Chloride (Klor-Con 10) 20 meq PO BID-WM [facility] Last Admin: 07/29/17 18:47 Dose: 20 meq Ranolazine (Ranexa) 1,000 mg PO BID [facility] Last Admin: 07/29/17 10:27 Dose: 1,000 mg Rosuvastatin Calcium (Crestor) 20 mg PO HS [facility] Last Admin: 07/28/17 21:14 Dose: 20 mg Sodium Chloride (Flush - Normal Saline) 10 ml IVF Q12HR [facility] Last Admin: 07/28/17 21:14 Dose: 10 ml Sodium Chloride (Flush - Normal Saline) 10 ml IVF PRN PRN PRN Reason: Saline Flush
[2017-07-29] MEDS ORDERED: Lisinopril 20 MG TAB PO SCH (21:00)
[2017-07-29] MEDS ORDERED: hydrALAZINE 25 MG TAB PO SCH (21:00)
[2017-07-30 05:09] VITALS: BP 137/87
[2017-07-30 05:26] VITALS: TEMP 98.8
[2017-07-30] MEDS ORDERED: Non-Formulary Item 1 EACH (Linaclotide [Linzess] 290 MCG) PO SCH (07:30)
[2017-07-30] MEDS ORDERED: LINZESS 290 MCG CAP PO SCH (09:00)
[2017-07-30] MEDS ORDERED: Amlodipine 5 MG TAB PO SCH (09:00)
[2017-07-30] MEDS ORDERED: METOPROLOL SUCCINATE 200 MG PO SCH (09:00)
--- NOTE | 2017-07-30 13:49 | DIS ---
DATE OF ADMISSION: 07/19/2017. DATE OF DISCHARGE: 07/29/2017. ADMITTING DIAGNOSES: 1. Acute cerebrovascular accident, status post tPA. 2. Congestive heart failure. 3. Diabetes. 4. Hypertension. 5. Chronic obstructive pulmonary disease. HOSPITAL COURSE AND DISCHARGE SUMMARY: He is a 77-year-old man, who was transferred from the [facility] emergency room because he had stroke over there and tPA was given over there. He was transferred for the stroke tPA and transferred to the ICU. He was kept in ICU. Neurology, Dr. Argueta, was consulted. He got tPA and then Cardiology was also consulted because of heart failure. He has history of atrial fibrillation in the past. Anticoagulation was not started because of CAT scan show ing microhemorrhage. The patient was kept in the ICU for intracranial hemorrhage and he also develop ed acute respiratory failure over there and treated for aspiration pneumonia and speech OT was kinza che. The followup CAT scan showed right frontoparietal area of acute stroke with some area of hemorrha ge, so he had developed hemorrhagic stroke. The patient was transferred to medical floor. PT/OT con sulted for the left-sided weakness. Aspirin was held. Continued on blood pressure medication. He i mproved gradually and PT consulted, and he accepted to the rehab. PHYSICAL EXAMINATION: VITAL SIGNS: At discharge, pulse 53-69, blood pressure 135/75, respirations 20, temperature 98.4. GENERAL: He was alert and oriented. Left-sided facial weakness. NECK: Supple. No JVD. CHEST: Normal vesicular breathing. No added sounds. CARDIOVASCULAR: S1, S2 audible. No S3 or S4. ABDOMEN: Soft. EXTREMITIES: No pedal edema. NEUROLOGIC: He has a left facial droop and left hemiparesis. DISCHARGE MEDICATIONS: Nebulizer, amlodipine 5 mg daily, hydralazine, lisinopril 20 mg b.i.d., Ranex a 1000 b.i.d., Crestor 20 mg daily, daily, metoprolol 200 mg daily. No aspirin. DISCHARGE DIAGNOSES: 1. Acute cerebrovascular accident with left hemiparesis. 2. Intracranial hemorrhage, status post tPA. 3. Hypertension. 4. Acute on chronic diastolic heart failure. 5. Chronic obstructive pulmonary disease. PLAN: We have planned to send him to rehab for further management.
== END 2017-07-29 21:45 | DRG 64 ==
LOC: SCSER 11:04 → CCU 13:50 → 2SE 07-20 16:38 → UNDODISIN 07-28 15:38
PROVIDERS: ADMIT Internal Medicine; ATTEND Internal Medicine
PROC: B030ZZZ Magnetic Resonance Imaging (MRI) of Brain (ICD-10-PCS; principal; 2017-07-20)
DX: I63.9 Cerebral infarction, unspecified (principal); I50.33 Acute on chronic diastolic (congestive) heart failure; I61.1 Nontraumatic intracerebral hemorrhage in hemisphere, cortical; J96.01 Acute respiratory failure with hypoxia; G93.6 Cerebral edema; N17.9 Acute kidney failure, unspecified; G81.04 Flaccid hemiplegia affecting left nondominant side; J98.11 Atelectasis; I13.0 Hypertensive heart and chronic kidney disease with heart failure and stage 1 through stage 4 chronic kidney disease, or unspecified chronic kidney disease; J44.9 Chronic obstructive pulmonary disease, unspecified; E78.5 Hyperlipidemia, unspecified; Z92.82 Status post administration of tPA (rtPA) in a different facility within the last 24 hours prior to admission to current facility; I25.10 Atherosclerotic heart disease of native coronary artery without angina pectoris; Z95.5 Presence of coronary angioplasty implant and graft; Z95.1 Presence of aortocoronary bypass graft; I48.0 Paroxysmal atrial fibrillation; N18.2 Chronic kidney disease, stage 2 (mild); E11.22 Type 2 diabetes mellitus with diabetic chronic kidney disease; Z87.891 Personal history of nicotine dependence; D64.9 Anemia, unspecified; M10.9 Gout, unspecified; E83.42 Hypomagnesemia; E11.65 Type 2 diabetes mellitus with hyperglycemia; E87.6 Hypokalemia
CPT/HCPCS: 36415; 36416; 70450; 70496; 70498; 70551; 71010; 80048; 80053; 80061; 82553; 83690; 83735; 83880; 84484; 85025; 85610; 85730; 93005; 93306; 96365; 96375; 96376; A4216; G8978-GP-CM; G8979-GP-CL; G8987-GO-CM; G8988-GO-CK; G8996-GN-CI; G8996-GN-CJ; G8996-GN-CK; G8997-GN-CI; G8997-GN-CJ; J1940; J2997; J3480; J7050

== ENCOUNTER 2017-09-27 09:40 | Inpatient (IN) | payer MEDICARE ==
[2017-09-27 10:54] LABS: #Eosinphils 0.3 thou/uL (0.0-0.7); #Lymphocytes 1.6 thou/uL (1.20-3.40); #Neutrophils 8.3 thou/uL (1.40-6.50); %Basophils 0.3 % (0.0-1.0); %Eosinophils 2.3 % (0.0-10.0); %Lymphocytes 14.2 % (21.0-51.0); %Monocytes 8.6 % (0.0-10.0); %Neutrophils 74.6 % (42.0-75.0); Hemoglobin 10.7 g/dL (14.0-18.0); Mean Corpuscular HGB CONC 32.5 g/dL (32.0-36.0); Mean Corpuscular Hemoglobin 32.5 pg (27.0-31.0); Mean Platelet Volume 8.4 fL (7.4-10.4); Platelet Count 220 thou/uL (130-400); Red Blood Cell (RBC) Count 3.28 mill/uL (4.70-6.10); White Blood Cell (WBC) Count 11.2 thou/uL (4.8-10.8)
--- NOTE | 2017-09-27 11:10 | RAD ---
PORTABLE CHEST: Date: 09/27/17 HISTORY: Dyspnea. COMPARISON: 07/21/17. FINDINGS/IMPRESSION: Cardiomegaly and postop sternotomy change again noted. There are bilateral lung infiltrates, which forrest ve occurred since the prior exam. Considerations include asymmetric alveolar edema in the lower lung linn and pneumonia superimposed on congestive change. There is evidence of small bilateral effusion s. POS: [facility]
[2017-09-27 11:17] LABS: ALT (SGPT) 9 U/L (8-55); AST (SGOT) 18 U/L (5-34); Albumin 3.4 g/dL (3.4-4.8); Alkaline Phosphatase 67 U/L (40-150); Anion Gap 13 mmol/L (10-20); BUN (Urea Nitrogen) 19 mg/dL (8.4-25.7); Calc. Creatinine Clearance 0 mL/min (70-130); Calcium 9.3 mg/dL (7.8-10.44); Carbon Dioxide 28 mmol/L (23-31); Chloride 99 mmol/L (98-107); Estimated GFR-MDRD 73; Glucose 116 mg/dL (83-110); Lipase 35 U/L (8-78); Potassium 3.6 mmol/L (3.5-5.1); Protein, Total 6.4 g/dL (5.8-8.1); Sodium 136 mmol/L (136-145)
[2017-09-27 11:21] LABS: CKMB 0.8 ng/mL (0-6.6); Troponin I 0.052 ng/mL (< 0.028)
[2017-09-27] MEDS ORDERED: Nitroglycerin 2% Ointment 1 INCH/1 GM Packet ONE (12:35)
[2017-09-27] MEDS ORDERED: Furosemide 40 MG/4 ML VIAL ONE (12:35)
[2017-09-27 12:59] LABS: Troponin I 0.051 ng/mL (< 0.028)
[2017-09-27 13:07] LABS: Bilirubin Negative (Negative); Blood, Urine Negative (Negative); Clarity CLEAR (Clear); Glucose, Urine (Dipstick) Negative (Negative); Leukocyte Negative (Negative); Nitrite Negative (Negative); Protein, Urine (Dipstick) 100 mg/dL (Neg-Trace); Specific Gravity, Urine 1.018 (1.002-1.036); Urobilinogen 0.2 mg/dL (0.2-1.0)
[2017-09-27 13:09] LABS: Bacteria/HPF None Seen HPF (None Seen); Hyaline Casts/LPF 0-3 HYALINE CAST LPF (0-3 Hyaline); Pathc Cast-AUWi Flag 0.13 (0-2.49); Squamous Epithelial None Seen HPF (0-3); WBC/HPF 0-3 HPF (0-3)
[2017-09-27 13:26] LABS: RBC/HPF 0-3 HPF (0-3)
--- NOTE | 2017-09-27 13:31 | PDOC.FPRHP ---
- History of Present Illness Chief Complaint: Lethargy History of Present Illness: Patient sent in to ER by intermediate staff after noting hypoxia to 72%. Patient states he has been feeling generalized lethargy for 2-3 days. States he is more tired than usual after doing his physical therapy. He denies chest pain or palpitations. He has been coughing for 2-3 days, non-productive. States he does not feel short of breath unless exercising. Lying down causes increased shortness of breath. He denies fevers, chills, or sweats. He states he has more swelling in his legs than usual. Echo in Jul 2017 shows EF 50-55% w/ tricuspid regurg. ED Course: Patient received lasix IV 40mg, ASA, and transdermal nitro in the ED - Allergies/Adverse Reactions Allergies Allergy/AdvReac Type Severity Reaction Status Date / Time No Known Allergies Allergy Verified 12/15/16 14:30 - Home Medications Medication Instructions Recorded Confirmed Type Acetaminophen [Tylenol Regular 650 mg PO Q6H PRN tab 07/29/17 Rx Strength] Albuterol Sulfate [Proventil Hfa] 2 puff INH Q4H PRN inh 07/29/17 Rx Aluminum & Magnesium Hydroxide 30 ml PO QIDPRN PRN udcup 07/29/17 Rx [Maalox] Amlodipine [Norvasc] 5 mg PO DAILY tab 07/29/17 Rx Bisacodyl [Dulcolax] 10 mg [place] DAILYPRN PRN supp 07/29/17 Rx Dextrose 5% in Water [D5w] 1 ml IV .Q0M PRN bag 07/29/17 Rx Dextrose 50% 25 gm SLOW IVP PRN PRN syringe 07/29/17 Rx Docusate [Colace] 100 mg PO BIDPRN PRN cap 07/29/17 Rx Fluticasone Propionate [Flonase 0 gm NASAL PRN PRN bot 07/29/17 Rx Nasal [place]] Folic Acid [Folvite] 1 mg PO DAILY tab 07/29/17 Rx Glucagon 1 mg IM PRN PRN vial 07/29/17 Rx HumaLOG [HumaLOG Vial] 0 units SC .MILD SLIDING SCALE PRN 07/29/17 Rx vial Ipratropium/Albuterol Sulfate 3 ml NEB [id number] PRN neb 07/29/17 Rx [DuoNeb] Isosorbide Mononitrate [Imdur] 60 mg PO DAILY tab 07/29/17 Rx Labetalol HCl [Normodyne] 10 mg SLOW IVP Q2H PRN vial 07/29/17 Rx Lisinopril [Zestril] 20 mg PO BID tab 07/29/17 Rx Loratadine [Claritin] 10 mg PO DAILY PRN tab 07/29/17 Rx Magnesium Hydroxide [Milk Of 30 ml PO BIDPRN PRN udcup 07/29/17 Rx Magnesium] Metoprolol Succinate [Toprol XL] 200 mg PO DAILY tab 07/29/17 Rx Mometasone/Formoterol 200/5 1 puff INH BID-RT aer 07/29/17 Rx [Dulera 200 Mcg/5 Mcg Inhaler] Polyethylene Glycol 3350 [Miralax] 17 gm PO DAILY PRN pk 07/29/17 Rx Potassium Chloride [Klor-Con 10] 20 meq PO BID-WM tab 07/29/17 Rx Ranolazine [Ranexa] 1,000 mg PO BID tab 07/29/17 Rx Rosuvastatin [Crestor] 20 mg PO HS tab 07/29/17 Rx Ubidecarenone [Coenzyme Q10] 100 mg PO DAILY cap 07/29/17 Rx hydrALAZINE [Apresoline] 100 mg PO BID tab 07/29/17 Rx - History PMHx: DM2 CKD 2 GERD COPD Hemiparesis 2/2 stroke CHF A. fib HTN HLD CABG, stents PSHx: Appy Ria FHx: non-contributory Social: No smoking, no alcohol, lives at [facility] - Review of Systems General: reports: fatigue. denies: fever/chills, night sweats Eyes: denies: vision changes ENT: reports: nasal congestion (chronic), rhinorrhea Respiratory: reports: cough, shortness of breath (with exercise or laying down) , exercise intolerance Cardiovascular: reports: edema (legs), orthopnea. denies: chest pain, palpitation Gastrointestinal: reports: constipation. denies: nausea, vomiting, diarrhea, abdominal pain Genitourinary: denies: dysuria, polyuria Skin: denies: rashes, itching Musculoskeletal: denies: pain, tenderness Neurological: reports: weakness (chronic) Psychological: reports: depression (patient says "this is not living") - Vital signs BP: [165/86] HR: [67] RR: [19] Tmax: [97.9] Pox: [98]% on [2L] - Physical Exam Constitutional: NAD, awake, alert and oriented HEENT: normocephalic and atraumatic, PERRLA, EOMI Neck: supple Heart: no murmurs/rubs/gallops, pulses present, other (irregularly irregular rhythm. 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 integrity specialist strength on L, cannot lift L foot off the bed) FMR H&P: Results - Labs Result Diagrams: 09/27/17 10:49 09/27/17 10:49 Lab results: WBC 11.2 thou/uL (4.8-10.8) H 09/27/17 10:49 Hgb 10.7 g/dL (14.0-18.0) L 09/27/17 10:49 Hct 32.9 % (42.0-52.0) L 09/27/17 10:49 MCV 100.0 fl (80.0-94.0) H 09/27/17 10:49 Plt Count 220 thou/uL (130-400) 09/27/17 10:49 Neutrophils % 74.6 % (42.0-75.0) 09/27/17 10:49 Sodium 136 mmol/L (136-145) 09/27/17 10:49 Potassium 3.6 mmol/L (3.5-5.1) 09/27/17 10:49 Chloride 99 mmol/L (98-107) 09/27/17 10:49 Carbon Dioxide 28 mmol/L (23-31) 09/27/17 10:49 BUN 19 mg/dL (8.4-25.7) 09/27/17 10:49 Creatinine 0.99 mg/dL (0.6-1.3) 09/27/17 10:49 Glucose 116 mg/dL (83-110) H 09/27/17 10:49 Calcium 9.3 mg/dL (7.8-10.44) 09/27/17 10:49 Total Bilirubin 1.0 mg/dL (0.2-1.2) 09/27/17 10:49 AST 18 U/L (5-34) 09/27/17 10:49 ALT 9 U/L (8-55) 09/27/17 10:49 Alkaline Phosphatase 67 U/L (40-150) 09/27/17 10:49 CK-MB (CK-2) 0.8 ng/mL (0-6.6) 09/27/17 10:49 B-Natriuretic Peptide 835.0 pg/mL (0-100) H 09/27/17 10:49 Serum Total Protein 6.4 g/dL (5.8-8.1) 09/27/17 10:49 Albumin 3.4 g/dL (3.4-4.8) 09/27/17 10:49 Lipase 35 U/L (8-78) 09/27/17 10:49 Urine Ketones Negative mg/dL (Negative) 09/27/17 12:40 Urine Blood Negative (Negative) 09/27/17 12:40 Urine Nitrite Negative (Negative) 09/27/17 12:40 Ur Leukocyte Esterase Negative (Negative) 09/27/17 12:40 Urine RBC 0-3 HPF (0-3) 09/27/17 12:40 Urine WBC 0-3 HPF (0-3) 09/27/17 12:40 Ur Squamous Epith Cells None Seen HPF (0-3) 09/27/17 12:40 Urine Bacteria None Seen HPF (None Seen) 09/27/17 12:40 - EKG Interpretation EKG: atrial fib, rate-controlled, normal qrs, no ST changes FMR H&P: A/P - Problem List (1) A-fib Current Visit: No Status: Acute Code(s): I48.91 - UNSPECIFIED ATRIAL FIBRILLATION Qualifiers: Atrial fibrillation type: paroxysmal Qualified Code(s): I48.0 - Paroxysmal atrial fibrillation (2) CAD (coronary artery disease) Current Visit: No Status: Chronic Code(s): I25.10 - ATHSCL HEART DISEASE OF [place] CORONARY ARTERY W/O ANG PCTRS Qualifiers: Coronary Disease-Associated Artery/Lesion type: [place] artery [place] vs. transplanted heart: [place] heart Associated angina: without angina Qualified Code(s): I25.10 - Atherosclerotic heart disease of [place] coronary artery without angina pectoris (3) COPD (chronic obstructive pulmonary disease) Current Visit: No Status: Chronic (4) DM type 2 (diabetes mellitus, type 2) Current Visit: No Status: Chronic Qualifiers: Diabetes mellitus complication status: with hyperglycemia (5) Dyslipidemia Current Visit: No Status: Chronic Code(s): E78.5 - HYPERLIPIDEMIA, UNSPECIFIED (6) Hypertension Current Visit: No Status: Chronic Code(s): I10 - ESSENTIAL (PRIMARY) HYPERTENSION (7) Acute diastolic CHF (congestive heart failure) Current Visit: No Status: Resolved Code(s): I50.31 - ACUTE DIASTOLIC ( CONGESTIVE) HEART FAILURE - Plan # CHF Exacerbation - last echo 2016 EF 50-55% - Lasix 40 mg IV BID - Wean O2 as able - supportive care - CXR shows fluid overload vs PNA, patient is afebrile and WBC is 11 - Trop 0.052, will trend # UTI - urine culture sent on 09/24 shows pseudomonas - will start patient on zosyn - urine/blood cx # Hemiparesis - history of stroke 2016 - OT/PT # A fib - home meds # HTN - cont home meds - blood pressure is decreasing towards normal in ED - will add hydralzine PRN # DMII - SSI # CKD III - on lasix, will monitor Cr # HLD - statin #PPx -ASA, Ranexa, SCDs -will hold lovenox 2/2 to recent stroke which converted to hemorrhagic FMR H&P: Upper Level - Pertinent history 77 year old white male presents with 2-3 day history of dyspnea and cough. Associated with bilateral lower extremity edema, PND, orthopnea, exertional dyspnea, and fatigue. Other symptoms include nasal congestion, rhinorrhea, and constipation . Patient is currently at resident at [facility] being treated by PT/OT/ST after a CVA with hemorrhagic conversion. He has residual deficits including left facial droop, LUE hemiplegia, and LLE hemiparesis. Denies fevers, chills, myalgias, AP, N/V/D, dysuria, and polyuria In the ED he was seen by Dr. Reeder Given aspirin 324, Nitrobid, and Lasix 40 PMH includes CAD s/p CABG, left MCA CVA with hemorrhagic conversion, DM2, HTN, macrocytic anemia, COPD. PSH includes CABG, PCI, cholecystectomy, and appendectomy. Social No alcohol or tobacco use. Plans to return home to live with his when discharged. - Pertinent findings Physical Exam: VS: Afebrile Oral temp 97.9. RR 17. HR 63 BP 163/85 O2 saturation: 99% on 2L Wt 104.3 kg General: NAD, A&Ox4. Obese Eyes: PERRLA, EOMI, nonicteric ENT: MMM, oropharynx clear CV: Regular rate. Irregular rhythm. No murmurs, rubs, or gallops auscultated. Pulses palpable and equal in all 4 extremities Resp: Lungs with bibasilar rales. Breathing nonlabored. Using nasal cannula Abdomen: Soft, NT. BS+ x4 Extremities: 2+ LE edema bilaterally to tibial plateau Skin: No rashes or ulcers Neuro: Left facial droop. LUE strength 0/5. LLE strength 2/5. RUE and RLE strength 5/5 Psych: Mood and affect appropriate. Judgement and insight intact. Labs: Notable abnormal labs include BNP of 835, GFR of 73. WBC 11.2, and troponin I of 0.052 and 0.051 EKG Atrial fibrillation. No apparent ischemic changes CXR Bilateral lower lobe consolidations possible consolidation superimposed on edema. Evidence of small bilateral pleural effusions. - Plan Date/Time: 09/27/17 1327 Malcolm Rivera DO, have evaluated this patient and agree with findings/plan as outlined by operations intern resident. Pertinent changes/additions are listed here. A/P: 1) Acute exacerbation of diastolic CHF: Admit to telemetry. Start Lasix, fluid restrict, and strict I&Os. Monitor daily weights. O2 supplementation prn. Patient afebrile. Suspect CHF exacerbation is more likely cause than pneumonia. 2) Acute hypoxic respiratory failure: 2/2 #1 O2 supplementation and diuresis 3) HTN: Not at goal but improved with Lasix. Will continue to work to optimize blood pressure control 4) Indeterminate troponin: Likely 2/2 #1. Will continue to trend troponin and EKG 5) UTI: Pseudomonas on urine culture collected at [facility] on Wednesday. Repeat UA and UCx today. Patient asymptomatic. Zosyn started 6) History of left MCA CVA with hemorrhagic conversion: Consult PT/OT. Continue statin and aspirin 7) Chronic atrial fibrillation: Rate controlled. Continue current meds plus aspirin. CHADS2 VASc score is 8 consistent with 10.8% of stroke. HAS BLED score is 5 consistent with bleeding risk of 9.1%. Patient is at risk of fall based on deficits. Risks of bleed likely outweigh risk of CVA will use aspirin rather than halfway anticoagulation. 8) DM2: Accuchecks, sliding scale inulin, and home Levemir 9) Macrocytic anemia: Stable from August 10) CKD stage 3: Monitor Creatinine. 11) Diet: Heart healthy, low sodium, consistent carb 12) Activity: Up with assist 13) DVT prophylaxis: SCDs 14) Code Status: DNR
[2017-09-27] MEDS ORDERED: Dextrose 5% in Water 1,000 ML IV PRN (14:12)
[2017-09-27] MEDS ORDERED: Dextrose 50% Abboject 50 ML SYRINGE SLOW IVP PRN (14:12)
[2017-09-27] MEDS ORDERED: HumaLOG 300 UNITS/3 ML VIAL SC PRN (14:22)
[2017-09-27] MEDS ORDERED: Acetaminophen 325 MG TAB PO PRN (14:34)
[2017-09-27] MEDS ORDERED: PROVENTIL INHALER 6.7 G (200 INHALATIONS) INH PRN (14:34)
[2017-09-27] MEDS ORDERED: Mag-Al 1200 mg/1200 mg/30 ML UDCUP PO PRN (14:34)
[2017-09-27] MEDS ORDERED: Sodium Chloride 0.9% 10 ML ONE (19:16)
[2017-09-27] MEDS: hydrALAZINE 20 MG/ML VIAL SLOW IVP PRN ×5 (20:47→23:54)
[2017-09-27] MEDS: INSULIN DETEMIR SC SCH (21:04)
[2017-09-27] MEDS: hydrALAZINE 25 MG TAB PO SCH (21:04)
[2017-09-27] MEDS: ADMIXTURE FEE SC SCH (21:04)
[2017-09-27] MEDS: Docusate 100 MG CAP PO SCH (21:04)
[2017-09-27] MEDS: Rosuvastatin 20 MG TAB PO SCH (21:05)
[2017-09-27] MEDS: Lisinopril 20 MG TAB PO SCH (21:05)
[2017-09-28] MEDS: hydrALAZINE 20 MG/ML VIAL SLOW IVP PRN ×2 (00:48→01:35)
[2017-09-28 05:32] LABS: #Eosinphils 0.4 thou/uL (0.0-0.7); #Lymphocytes 1.2 thou/uL (1.20-3.40); #Monocytes 0.8 thou/uL (0.11-0.59); #Neutrophils 6.8 thou/uL (1.40-6.50); %Basophils 0.5 % (0.0-1.0); %Eosinophils 3.9 % (0.0-10.0); %Lymphocytes 12.9 % (21.0-51.0); %Neutrophils 73.7 % (42.0-75.0); Mean Corpuscular HGB CONC 31.9 g/dL (32.0-36.0); Mean Corpuscular Hemoglobin 31.8 pg (27.0-31.0); Mean Corpuscular Volume 99.8 fl (80.0-94.0); Mean Platelet Volume 8.2 fL (7.4-10.4); Platelet Count 214 thou/uL (130-400); Red Blood Cell (RBC) Count 3.46 mill/uL (4.70-6.10); White Blood Cell (WBC) Count 9.2 thou/uL (4.8-10.8)
[2017-09-28 05:49] LABS: Anion Gap 15 mmol/L (10-20); BUN (Urea Nitrogen) 13 mg/dL (8.4-25.7); Calc. Creatinine Clearance 122 mL/min (70-130); Calcium 9.3 mg/dL (7.8-10.44); Carbon Dioxide 28 mmol/L (23-31); Chloride 97 mmol/L (98-107); Estimated GFR-MDRD Greater than 90; Glucose 111 mg/dL (83-110); Potassium 3.1 mmol/L (3.5-5.1); Sodium 137 mmol/L (136-145)
[2017-09-28] MEDS ORDERED: Sodium Chloride 0.9% 10 ML ONE (05:50)
[2017-09-28] MEDS: Furosemide 40 MG/4 ML VIAL SLOW IVP SCH ×2 (05:53→13:36)
[2017-09-28 07:57] LABS: CKMB 1.8 ng/mL (0-6.6); Troponin I 0.061 ng/mL (< 0.028)
[2017-09-28 08:07] VITALS: BMI 26.6
--- NOTE | 2017-09-28 09:14 | PDOC.FM ---
- Objective Vital Signs & Weight: Vital Signs (12 hours) Temp Pulse Resp BP BP Pulse Ox 09/28/17 10:17 165/81 H 09/28/17 10:16 93 09/28/17 08:10 97.4 F L 93 16 157/72 H 09/28/17 06:04 168/78 H 09/28/17 03:49 98.0 F 78 19 171/71 H 98 09/28/17 02:07 156/62 H 09/28/17 01:50 173/80 H 09/28/17 01:35 74 207/89 H 09/28/17 00:59 98.6 F 74 19 171/82 H 99 09/28/17 00:48 75 197/86 H 09/28/17 00:15 170/80 H 09/27/17 23:54 72 180/81 H Weight Admit Weight 107.048 kg Weight 101.831 kg I&O: 09/27/17 09/28/17 09/29/17 06:59 06:59 06:59 Intake Total 13 Output Total 1840 Balance -1827 Result Diagrams: 09/28/17 04:52 09/28/17 04:52 <Malcolm Salazar - Last Filed: 09/28/17 11:45> - Subjective Subjective: This morning the patient says he is feeling much better. He denies any shortness of breath. He states he slept well overnight and feels he has more energy thanks to getting some fluid off. He denies any pain. - Objective Vital Signs & Weight: Vital Signs (12 hours) Temp Pulse Resp BP BP Pulse Ox 09/28/17 08:10 97.4 F L 93 16 157/72 H 09/28/17 06:04 168/78 H 09/28/17 03:49 98.0 F 78 19 171/71 H 98 09/28/17 02:07 156/62 H 09/28/17 01:50 173/80 H 09/28/17 01:35 74 207/89 H 09/28/17 00:59 98.6 F 74 19 171/82 H 99 09/28/17 00:48 75 197/86 H 09/28/17 00:15 170/80 H 09/27/17 23:54 72 180/81 H 09/27/17 22:55 158/75 H 09/27/17 22:41 72 180/86 H 09/27/17 22:22 73 198/91 H 09/27/17 21:47 162/73 H 09/27/17 21:40 69 180/81 H Weight Admit Weight 107.048 kg Weight 101.831 kg I&O: 09/27/17 09/28/17 09/29/17 06:59 06:59 06:59 Intake Total 13 Output Total 1839 Balance -1826 Result Diagrams: 09/28/17 04:52 09/28/17 04:52 <Gee Leigh - Last Filed: 09/28/17 13:54> - Objective Vital Signs & Weight: Vital Signs (12 hours) Temp Pulse Pulse Pulse Resp BP BP 09/28/17 10:17 165/81 H 09/28/17 10:16 93 09/28/17 08:10 97.4 F L 93 16 09/28/17 07:50 93 90 157/72 H 09/28/17 06:04 09/28/17 03:49 98.0 F 78 19 BP BP Pulse Ox Pulse Ox Pulse Ox 09/28/17 10:17 09/28/17 10:16 09/28/17 08:10 157/72 H 09/28/17 07:50 165/81 H 98 98 09/28/17 06:04 168/78 H 09/28/17 03:49 171/71 H 98 Weight Admit Weight 107.048 kg Weight 101.831 kg I&O: 09/27/17 09/28/17 09/29/17 06:59 06:59 06:59 Intake Total 13 Output Total 1839 Balance -1826 Result Diagrams: 09/28/17 04:52 09/28/17 04:52 <Danii Meng - Last Filed: 09/28/17 15:02> Phys Exam - Physical Examination HEENT: PERRLA, moist MMs Neck: no nodes, supple, full ROM Respiratory: no wheezing, clear to auscultation bilateral Cardiovascular: RRR, no significant murmur Gastrointestinal: soft, non-tender, no distention, positive bowel sounds Musculoskeletal: edema present (+3 bilaterally) left sided facial droop which is chronic, chronic left-sided weakness <Gee Leigh - Last Filed: 09/28/17 13:54> Dx/Plan (1) A-fib Code(s): I48.91 - UNSPECIFIED ATRIAL FIBRILLATION Status: Acute QualifierTitle: Atrial fibrillation type: paroxysmal Qualified Code(s): I48.0 - Paroxysmal atrial fibrillation (2) CAD (coronary artery disease) Code(s): I25.10 - ATHSCL HEART DISEASE OF [place] CORONARY ARTERY W/O ANG PCTRS Status: Chronic QualifierTitle: Coronary Disease-Associated Artery/Lesion type: [place] artery [place] vs. transplanted heart: [place] heart Associated angina: without angina Qualified Code(s): I25.10 - Atherosclerotic heart disease of [place] coronary artery without angina pectoris (3) COPD (chronic obstructive pulmonary disease) Status: Chronic (4) DM type 2 (diabetes mellitus, type 2) Status: Chronic QualifierTitle: Diabetes mellitus complication status: with hyperglycemia (5) Dyslipidemia Code(s): E78.5 - HYPERLIPIDEMIA, UNSPECIFIED Status: Chronic (6) Hypertension Code(s): I10 - ESSENTIAL (PRIMARY) HYPERTENSION Status: Chronic (7) Acute diastolic CHF (congestive heart failure) Code(s): I50.31 - ACUTE DIASTOLIC (CONGESTIVE) HEART FAILURE Status: Resolved - Plan Plan: Upper Level Addendum: I personally evaluated the patient and discussed it with Dr. Leigh. I agree with his evaluation, assessment, and plan with exceptions as listed below: 1) Acute diastolic CHF exacerbation - Improving symptomatically. Continue to diuresis and monitor I&Os. Likely DC to SNF tomorrow 2) Acute hypoxic respiratory failure 2/2 #1 - Plan as listed above 3) UTI vs asymptomatic bacteriuria - Culture pending. Continue iv antibiotics <Malcolm Salazar - Last Filed: 09/28/17 11:45> (1) A-fib Code(s): I48.91 - UNSPECIFIED ATRIAL FIBRILLATION Status: Acute QualifierTitle: Atrial fibrillation type: paroxysmal Qualified Code(s): I48.0 - Paroxysmal atrial fibrillation (2) CAD (coronary artery disease) Code(s): I25.10 - ATHSCL HEART DISEASE OF [place] CORONARY ARTERY W/O ANG PCTRS Status: Chronic QualifierTitle: Coronary Disease-Associated Artery/Lesion type: [place] artery [place] vs. transplanted heart: [place] heart Associated angina: without angina Qualified Code(s): I25.10 - Atherosclerotic heart disease of [place] coronary artery without angina pectoris (3) COPD (chronic obstructive pulmonary disease) Status: Chronic (4) DM type 2 (diabetes mellitus, type 2) Status: Chronic QualifierTitle: Diabetes mellitus complication status: with hyperglycemia (5) Dyslipidemia Code(s): E78.5 - HYPERLIPIDEMIA, UNSPECIFIED Status: Chronic (6) Hypertension Code(s): I10 - ESSENTIAL (PRIMARY) HYPERTENSION Status: Chronic (7) Acute diastolic CHF (congestive heart failure) Code(s): I50.31 - ACUTE DIASTOLIC (CONGESTIVE) HEART FAILURE Status: Resolved - Plan Plan: # Acute diastolic CHF exacerbation - Lasix 40mg IV BID - Strict I/Os - O2 as needed, RA this AM - home BP meds # Acute hypoxic respiratory failure - resolved # HTN - home meds - added clonidine patch this AM - Hydralazine PRN for BP >180 # UTI - pseudomonas grown out from culture on Wednesday - on Zosyn - Blood and urine cultures pending # CVA Hx - ST consulted, recommend clears - on soft diet at [place] #Chronic A Fib - home meds - rate controlled # DM - SSI, home levemir # CKD - trend Cr # PPx - SCDs, no anticoag 2/2 recent hemorrhagic stroke # Code - DNR <Gee Leigh - Last Filed: 09/28/17 13:54> Attending Addendum - Attending Addendum Date/Time: 09/28/17 1501 I personally evaluated the patient and discussed the management with Dr. Leigh on 09/28/17. I agree with the History, Examination, Assessment and Plan documented above with any addition or exceptions noted below. Markedly improved today after diuresis. Will continue to diurese, wean O2, and evaluate for possible urinary retention. Will need to finish course of abd for pseudomonas UTI as well. Possible discharge back to [place] tomorrow. <Danii Meng - Last Filed: 09/28/17 15:02>
[2017-09-28] MEDS ORDERED: Potassium Chloride 20 MEQ TAB PO SCH (10:00)
[2017-09-28] MEDS ORDERED: cloNIDine 0.1mg/24 Hour PATCH TD SCH (10:00)
[2017-09-28] MEDS: hydrALAZINE 25 MG TAB PO SCH ×2 (10:16→20:46)
[2017-09-28] MEDS: Aspirin 325 MG TAB PO SCH (10:17)
[2017-09-28] MEDS: Potassium Chloride 20 MEQ TAB PO SCH ×2 (10:17→10:53)
[2017-09-28] MEDS: Docusate 100 MG CAP PO SCH ×2 (10:17→20:46)
[2017-09-28] MEDS: Lisinopril 20 MG TAB PO SCH ×2 (10:17→20:46)
[2017-09-28] MEDS: Piperacillin/Tazobactam 3.375 GM in Sodium Chloride 0.9% 100 ML IVPB SCH ×2 (13:36→20:45)
[2017-09-28] MEDS: INSULIN DETEMIR SC SCH (20:47)
[2017-09-28] MEDS: ADMIXTURE FEE SC SCH (20:47)
[2017-09-28] MEDS: Rosuvastatin 20 MG TAB PO SCH (21:26)
[2017-09-29] MEDS: Piperacillin/Tazobactam 3.375 GM in Sodium Chloride 0.9% 100 ML IVPB SCH ×2 (04:10→11:03)
[2017-09-29 04:49] LABS: #Eosinphils 0.3 thou/uL (0.0-0.7); #Lymphocytes 0.8 thou/uL (1.20-3.40); #Monocytes 0.8 thou/uL (0.11-0.59); #Neutrophils 4.8 thou/uL (1.40-6.50); %Basophils 0.3 % (0.0-1.0); %Eosinophils 4.6 % (0.0-10.0); %Lymphocytes 12.3 % (21.0-51.0); %Monocytes 11.6 % (0.0-10.0); %Neutrophils 71.3 % (42.0-75.0); Hemoglobin 9.9 g/dL (14.0-18.0); Mean Corpuscular HGB CONC 33.4 g/dL (32.0-36.0); Mean Corpuscular Hemoglobin 33.4 pg (27.0-31.0); Mean Platelet Volume 8.5 fL (7.4-10.4); Platelet Count 210 thou/uL (130-400); RBC Distribution Width 13.7 % (11.5-14.5); Red Blood Cell (RBC) Count 2.97 mill/uL (4.70-6.10); White Blood Cell (WBC) Count 6.8 thou/uL (4.8-10.8)
[2017-09-29 04:59] LABS: Anion Gap 11 mmol/L (10-20); BUN (Urea Nitrogen) 17 mg/dL (8.4-25.7); Calc. Creatinine Clearance 104 mL/min (70-130); Calcium 8.8 mg/dL (7.8-10.44); Carbon Dioxide 30 mmol/L (23-31); Chloride 97 mmol/L (98-107); Estimated GFR-MDRD 85; Glucose 152 mg/dL (83-110); Potassium 3.2 mmol/L (3.5-5.1); Sodium 135 mmol/L (136-145)
[2017-09-29] MEDS: Furosemide 40 MG/4 ML VIAL SLOW IVP SCH (06:25)
--- NOTE | 2017-09-29 07:35 | EKG ---
Test Reason : Blood Pressure : / mmHG Vent. Rate : 072 BPM Atrial Rate : 326 BPM P-R Int : 000 ms QRS Dur : 088 ms QT Int : 464 ms P-R-T Axes : 063 -06 152 degrees QTc Int : 508 ms Atrial flutter with variable A-V block Cannot rule out Anterior infarct (cited on or before 27-SEP-2017) Prolonged QT Nonspecific ST-T changes Abnormal ECG When compared with ECG of 27-SEP-2017 09:48, (Unconfirmed) Atrial flutter has replaced Atrial fibrillation QRS duration has decreased Nonspecific T wave abnormality no longer evident in Inferior leads Confirmed by DR. Stacy ASCENCIO ([id number]) on 09/29/2017 7:34:41 AM Referred By: AUBREY Confirmed By:DR. Stacy ASCENCIO
[2017-09-29] MEDS ORDERED: Potassium Chloride 20 MEQ TAB PO SCH (08:00)
--- NOTE | 2017-09-29 08:11 | PDOC.FM ---
- Subjective Subjective: This morning patient states he slept well overnight. He denies shortness of breath or coughing. States he sat up yesterday with assistance of PT and he was very excited about this. Patient denies any pain or other concerns at this time , he is very pleased with the care of the nurses and microcomputer support specialist during this hospital stay. - Objective Vital Signs & Weight: Vital Signs (12 hours) Temp Pulse Resp BP BP Pulse Ox 09/29/17 07:45 97.8 F 60 18 92 L 09/29/17 07:20 97.8 F 60 18 147/68 H 92 L 09/29/17 04:09 97.6 F 61 16 167/74 H 99 09/28/17 20:46 61 165/81 H 09/28/17 20:45 97.9 F 61 18 97 Weight Admit Weight 107.048 kg Weight 101.469 kg I&O: 09/28/17 09/29/17 09/30/17 06:59 06:59 06:59 Intake Total 13 0 Output Total 1840 525 Balance -1827 1395 Result Diagrams: 09/29/17 04:22 09/29/17 04:22 <Gee Leigh - Last Filed: 09/29/17 09:36> - Objective Vital Signs & Weight: Vital Signs (12 hours) Temp Pulse Resp BP BP Pulse Ox 09/29/17 12:10 97.6 F 60 18 129/61 95 09/29/17 08:31 60 147/68 H 09/29/17 07:45 97.8 F 60 18 92 L 09/29/17 07:20 97.8 F 60 18 147/68 H 92 L 09/29/17 04:09 97.6 F 61 16 167/74 H 99 Weight Admit Weight 107.048 kg Weight 101.469 kg I&O: 09/28/17 09/29/17 09/30/17 06:59 06:59 06:59 Intake Total 0 Output Total 1840 525 Balance -1827 1395 Result Diagrams: 09/29/17 04:22 09/29/17 04:22 <Danii Meng - Last Filed: 09/29/17 14:08> Phys Exam - Physical Examination HEENT: PERRLA, moist MMs Neck: no nodes, full ROM Respiratory: no wheezing Mild congestion at R lung base Cardiovascular: RRR, no significant murmur Gastrointestinal: soft, non-tender, no distention, positive bowel sounds Musculoskeletal: pulses present +1 edema bilaterally chronic deficit on L side from CVA Psychiatric: normal affect, A&O x 3 Skin: no rash, normal turgor, cap refill <2 seconds <Gee Leigh - Last Filed: 09/29/17 09:36> Dx/Plan (1) A-fib Code(s): I48.91 - UNSPECIFIED ATRIAL FIBRILLATION Status: Acute QualifierTitle: Atrial fibrillation type: paroxysmal Qualified Code(s): I48.0 - Paroxysmal atrial fibrillation (2) CAD (coronary artery disease) Code(s): I25.10 - ATHSCL HEART DISEASE OF [place] CORONARY ARTERY W/O ANG PCTRS Status: Chronic QualifierTitle: Coronary Disease-Associated Artery/Lesion type: [place] artery [place] vs. transplanted heart: [place] heart Associated angina: without angina Qualified Code(s): I25.10 - Atherosclerotic heart disease of [place] coronary artery without angina pectoris (3) COPD (chronic obstructive pulmonary disease) Status: Chronic (4) DM type 2 (diabetes mellitus, type 2) Status: Chronic QualifierTitle: Diabetes mellitus complication status: with hyperglycemia (5) Dyslipidemia Code(s): E78.5 - HYPERLIPIDEMIA, UNSPECIFIED Status: Chronic (6) Hypertension Code(s): I10 - ESSENTIAL (PRIMARY) HYPERTENSION Status: Chronic (7) Acute diastolic CHF (congestive heart failure) Code(s): I50.31 - ACUTE DIASTOLIC (CONGESTIVE) HEART FAILURE Status: Resolved - Plan Plan: # Acute diastolic CHF exacerbation - Lasix 40mg IV BID - Strict I/Os - O2 at 1.5L overnight satting in high 90s, RA this AM - home BP meds # Acute hypoxic respiratory failure - resolved # HTN - home meds - added clonidine patch 09/28 - Hydralazine PRN for BP >180 # UTI - pseudomonas grown out from culture on Wednesday, Ucx this stay shows no growth - on Zosyn - Blood cultures shows 1/2 staph. epi- contaminant - afebrile throughout hospitalization, asymptomatic # CVA Hx - ST consulted, recommend clears - on soft diet at [place] #Chronic A Fib - home meds - rate controlled # DM - SSI, home levemir # CKD - trend Cr # PPx - SCDs, no anticoag 2/2 recent hemorrhagic stroke # Code - DNR Dispo: home this PM as long as tolerates Room air will this AM <Gee Leigh - Last Filed: 09/29/17 09:36> Attending Addendum - Attending Addendum Date/Time: 09/29/17 0959 I personally evaluated the patient and discussed the management with Dr. Leigh on 09/29/17. I agree with the History, Examination, Assessment and Plan documented above with any addition or exceptions noted below. Check PVR and discharge back to custodial. Continue Lasix PO with potassium supplementation as an outpatient, d/w custodial and PCP at [place]. <Danii Meng - Last Filed: 09/29/17 14:08>
[2017-09-29] MEDS: hydrALAZINE 25 MG TAB PO SCH (08:31)
[2017-09-29] MEDS: Lisinopril 20 MG TAB PO SCH (08:31)
[2017-09-29] MEDS: Docusate 100 MG CAP PO SCH (08:32)
[2017-09-29] MEDS: Aspirin 325 MG TAB PO SCH (08:32)
[2017-09-29] MEDS: Furosemide 40 MG TAB PO SCH ×2 (09:07→13:56)
--- NOTE | 2017-09-29 09:33 | RAD ---
PORTABLE CHEST: Comparison: 09-27-17 History: Respiratory distress. FINDINGS: There has been definite improvement to the interstitial alveolar lung changes suggesting resolving pu lmonary edema. Heart size is borderline for portable technique. There are post op sternotomy changes. IMPRESSION: Improving parenchymal lung markings although these changes are more predominately peripheral the sugg estion that they are resolving would suggest that they are still most likely on the basis of pulmonar y edema. POS: OFF
[2017-09-29] MEDS ORDERED: Polyethylene Glycol 3350 17 GM Packet PO SCH (10:45)
[2017-09-29 12:15] VITALS: BP 129/61; TEMP 97.6
--- NOTE | 2017-09-29 20:18 | DIS-2 ---
DATE OF ADMISSION: 09/27/2017 DATE OF DISCHARGE: 09/29/2017 RESIDENT: Dr. Gee Leigh. ADMITTING ATTENDING: Dr. Efrain Caro. DISCHARGE ATTENDING: Dr. Danii Meng. CONSULTATIONS: None. PROCEDURES: None. PRIMARY DIAGNOSIS: Acute on chronic congestive heart failure exacerbation. SECONDARY DIAGNOSES: Acute hypoxic respiratory failure, hypertension, urinary tract infection, history of cerebrovascular accident, chronic atrial fibrillation, diabetes mellitus type 2, chronic kidney disease. DISCHARGE MEDICATIONS: Lasix 20 mg once daily, potassium 10 mEq once daily. CONTINUATION OF HOME MEDICATIONS: Albuterol 2 puffs q.4 hours as needed, clonidine patch 0.1 mg weekly, Nexium 40 mg once daily, folic acid 1 mg once daily, hydralazine 100 mg p.o. b.i.d., home insulin, Imdur 60 mg daily, DuoNeb t.i.d., lisinopril 20 mg b.i.d., Claritin 10 mg daily, Milk of Magnesia daily, metoprolol 200 mg daily, Zofran 4 mg q.6 hours p.r.n., Ranexa 1 gram p.o. b.i.d. , rosuvastatin 20 mg nightly. HISTORY OF PRESENT ILLNESS: Patient presented to the hospital with 2-3 days of worsening overall weakness. [facility] found him to have an O2 sat of 72%. He states that he was coughing some, but was just feeling generally lethargic. States he is more tired than usual after doing physical therapy. He denied chest pains or palpitations. Denied any productive cough. During the course of hospital stay, the patient was diuresed. His oxygen requirements decreased rapidly after diuresis. He did have a urine culture, which grew out Pseudomonas before coming into the hospital. Urine culture in the hospital was clear. Patient was on Zosyn during the hospitalization for coverage of the pseudomonal urine culture, but it was just stopped upon discharge. Patient sent home on 20 mg of Lasix to promote proper fluid balance. DISPOSITION: Stable. DISCHARGE INSTRUCTIONS: 1. Location: Home. 2. Diet: Soft. 3. Activity: As tolerated, physical therapy. 4. Follow up with primary care doctor within 1 week. Please follow up on fluid status and potassium level. [facility]
--- NOTE | 2017-10-02 15:33 | EKG ---
Test Reason : Blood Pressure : / mmHG Vent. Rate : 068 BPM Atrial Rate : 055 BPM P-R Int : 000 ms QRS Dur : 108 ms QT Int : 450 ms P-R-T Axes : 000 004 194 degrees QTc Int : 478 ms Atrial fibrillation Cannot rule out Anterior infarct , age undetermined Abnormal ECG Confirmed by FREEDOM VIERA ([id number]), newspaper copy editor JASON YOUNG ([id number]) on 10/02/2017 3:32:45 PM Referred By: Confirmed By:FREEDOM VIERA
== END 2017-09-29 15:25 | DRG 291 ==
LOC: ERS 09:40 → ERHOLD 12:30 → 2NO 16:23
PROVIDERS: ADMIT Student in an Organized Health Care Education/Training Program; ATTEND Student in an Organized Health Care Education/Training Program
DX: I13.0 Hypertensive heart and chronic kidney disease with heart failure and stage 1 through stage 4 chronic kidney disease, or unspecified chronic kidney disease (principal); J96.01 Acute respiratory failure with hypoxia; I50.33 Acute on chronic diastolic (congestive) heart failure; N39.0 Urinary tract infection, site not specified; I69.954 Hemiplegia and hemiparesis following unspecified cerebrovascular disease affecting left non-dominant side; B96.5 Pseudomonas (aeruginosa) (mallei) (pseudomallei) as the cause of diseases classified elsewhere; I48.0 Paroxysmal atrial fibrillation; I25.10 Atherosclerotic heart disease of native coronary artery without angina pectoris; J44.9 Chronic obstructive pulmonary disease, unspecified; E78.5 Hyperlipidemia, unspecified; E11.65 Type 2 diabetes mellitus with hyperglycemia; E11.22 Type 2 diabetes mellitus with diabetic chronic kidney disease; Z66 Do not resuscitate; K21.9 Gastro-esophageal reflux disease without esophagitis; Z95.1 Presence of aortocoronary bypass graft; Z95.5 Presence of coronary angioplasty implant and graft; N18.3 Chronic kidney disease, stage 3 (moderate); K59.00 Constipation, unspecified; J34.89 Other specified disorders of nose and nasal sinuses; I69.992 Facial weakness following unspecified cerebrovascular disease; D50.9 Iron deficiency anemia, unspecified; E66.9 Obesity, unspecified; Z68.26 Body mass index [BMI] 26.0-26.9, adult
CPT/HCPCS: 36415; 36416; 71045; 80048; 81003; 81015; 82553; 83690; 83880; 84484; 85025; 87040; 87077; 87086; 87149; 87186; 93005; 93010; 93798; 94760; 96374; A4216; G8978-GP-CM; G8979-GP-CL; G8987-GO-CL; G8988-GO-CJ; G8996-GN-CI; G8997-GN-CI; J0360; J1815; J1940; J2543; J7050

== ENCOUNTER 2017-10-11 10:54 | Inpatient (IN) | payer MEDICARE ==
[2017-10-11 11:39] LABS: #Eosinphils 0.2 thou/uL (0.0-0.7); #Lymphocytes 1.3 thou/uL (1.20-3.40); #Monocytes 1.1 thou/uL (0.11-0.59); #Neutrophils 9.3 thou/uL (1.40-6.50); %Basophils 0.2 % (0.0-1.0); %Eosinophils 1.4 % (0.0-10.0); %Lymphocytes 10.8 % (21.0-51.0); %Monocytes 8.9 % (0.0-10.0); %Neutrophils 78.7 % (42.0-75.0); Mean Corpuscular HGB CONC 33.4 g/dL (32.0-36.0); Mean Corpuscular Hemoglobin 32.8 pg (27.0-31.0); Mean Corpuscular Volume 98.3 fl (80.0-94.0); Mean Platelet Volume 7.6 fL (7.4-10.4); Platelet Count 308 thou/uL (130-400); RBC Distribution Width 13.4 % (11.5-14.5); Red Blood Cell (RBC) Count 3.34 mill/uL (4.70-6.10); White Blood Cell (WBC) Count 11.8 thou/uL (4.8-10.8)
--- NOTE | 2017-10-11 12:02 | RAD ---
PORTABLE CHEST 1 VIEW: Date: 10/11/17 Time: 1111 hours HISTORY: Dyspnea, chest pain. FINDINGS/IMPRESSION: Comparison made with exam of 09/29/17. Changes of median sternotomy are again seen. The heart is enlarged. There is mild pulmonary vascular congestion. Bibasilar infiltrates are present. No pneumothoraces or large effusions are seen. Small e ffusions cannot be excluded. POS: [facility]
[2017-10-11 12:05] LABS: CKMB 0.6 ng/mL (0-6.6); Troponin I 0.038 ng/mL (< 0.028)
[2017-10-11 12:12] LABS: ALT (SGPT) 11 U/L (8-55); AST (SGOT) 19 U/L (5-34); Albumin 3.5 g/dL (3.4-4.8); Alkaline Phosphatase 72 U/L (40-150); Anion Gap 12 mmol/L (10-20); BUN (Urea Nitrogen) 21 mg/dL (8.4-25.7); Bilirubin, Total 1.3 mg/dL (0.2-1.2); CK (CPK) 17 U/L (30-200); Calc. Creatinine Clearance 0 mL/min (70-130); Calcium 9.7 mg/dL (7.8-10.44); Carbon Dioxide 32 mmol/L (23-31); Chloride 93 mmol/L (98-107); Estimated GFR-MDRD 62; Globulin 3.3 g/dL (2.4-3.5); Glucose 121 mg/dL (83-110); Lipase 35 U/L (8-78); Potassium 4.1 mmol/L (3.5-5.1); Protein, Total 6.8 g/dL (5.8-8.1); Sodium 133 mmol/L (136-145)
[2017-10-11] MEDS ORDERED: Furosemide 40 MG/4 ML VIAL ONE (12:57)
--- NOTE | 2017-10-11 14:05 | PDOC.FPRHP ---
Addendum entered and electronically signed by Pushpa Weinberg MD 15:26: Original Note: - History of Present Illness Chief Complaint: SOB, weakness History of Present Illness: This stable 77 yo M presents to the ED for evaluation of CHF exacerbation vs PNA. He states about 2 days ago he started feeling generalized weakness, got more short of breath, and was coughing up yellow mucous. He says he did experience fevers, chills, and sweats. He was not able to complete his usual PT exercises because of fatigue. He says he does feel more short of breath when he lays down flat. He has had vomiting for about 2 days, he says he vomited only one time today. He has had decreased appetite. He states he had one episode of loose stool 3 days ago. He denies abdominal pain. He denies any blood in the stool. Patient was recently discharged from the hospital for a CHF exacerbation on 09/17. Echo in Jul 2017 shows EF 50-55% w/ tricuspid regurg. - Allergies/Adverse Reactions Allergies Allergy/AdvReac Type Severity Reaction Status Date / Time No Known Allergies Allergy Verified 09/27/17 20:10 - Home Medications Medication Instructions Recorded Confirmed Type RX: Acetaminophen [Tylenol Regular 650 mg PO Q6H PRN tab 07/29/17 09/27/17 Rx Strength] RX: Albuterol Sulfate [Proventil 2 puff INH Q4H PRN inh 07/29/17 09/27/17 Rx Hfa] RX: Bisacodyl [Dulcolax] 10 mg [place] DAILYPRN PRN supp 07/29/17 09/27/17 Rx RX: Docusate [Colace] 100 mg PO BIDPRN PRN cap 07/29/17 09/27/17 Rx RX: Fluticasone Propionate 0 gm NASAL PRN PRN bot 07/29/17 09/27/17 Rx [Flonase Nasal [place]] RX: Folic Acid [Folvite] 1 mg PO DAILY tab 07/29/17 09/27/17 Rx RX: Isosorbide Mononitrate [Imdur] 60 mg PO DAILY tab 07/29/17 09/27/17 Rx RX: Lisinopril [Zestril] 20 mg PO BID tab 07/29/17 09/27/17 Rx RX: Loratadine [Claritin] 10 mg PO DAILY PRN tab 07/29/17 09/27/17 Rx RX: Metoprolol Succinate [Toprol 200 mg PO DAILY tab 07/29/17 09/27/17 Rx XL] RX: Potassium Chloride [Klor-Con 20 meq PO BID-WM tab 07/29/17 09/27/17 Rx 10] RX: Ranolazine [Ranexa] 1,000 mg PO BID tab 07/29/17 09/27/17 Rx RX: Rosuvastatin [Crestor] 20 mg PO HS tab 07/29/17 09/27/17 Rx RX: Ubidecarenone [Coenzyme Q10] 100 mg PO DAILY cap 07/29/17 09/27/17 Rx RX: Esomeprazole Magnesium [NexIUM] 1 cap PO DAILY 09/27/17 09/27/17 History RX: Famotidine 20 mg PO BID 09/27/17 09/27/17 History RX: Insulin Detemir 100 UNITS/ML 22 units SQ HS 09/27/17 09/27/17 History [Levemir] RX: Ipratropium/Albuterol Sulfate 3 ml NEB TID 09/27/17 09/27/17 History [DuoNeb] RX: Lactulose 10 GM/15ML Oral Meghann 15 ml PO BID PRN 09/27/17 09/27/17 History [Lactulose] RX: Linaclotide [Linzess] 1 cap PO DAILY 09/27/17 09/27/17 History RX: Magnesium Hydroxide [Milk of 400 mg PO DAILY 09/27/17 09/27/17 History Magnesia] RX: Multivit-Mins/Iron/Folic/Lycop 1 tab PO DAILY 09/27/17 09/27/17 History [Centrum Men's Tablet] RX: Ondansetron HCl [Zofran] 4 mg PO Q6HR PRN 09/27/17 09/27/17 History RX: Saccharomyces boulardii 1 cap PO DAILY 09/27/17 09/27/17 History [Florastor] RX: Simethicone [Gas Relief] 80 mg PO TID PRN 09/27/17 09/27/17 History RX: cloNIDine [Clonidine] 1 each TD Q7D 09/27/17 09/27/17 History RX: guaiFENesin [Cough Syrup] 10 ml PO Q4HR PRN 09/27/17 09/27/17 History RX: guaiFENesin [Guaifenesin] 10 ml PO BID 09/27/17 09/27/17 History RX: hydrALAZINE HCl 100 mg PO BID 09/27/17 09/27/17 History RX: hydrALAZINE [Apresoline] 25 mg PO Q4H PRN 09/27/17 09/27/17 History Furosemide [Lasix] 20 mg PO DAILY 30 Days #30 tab 09/29/17 Rx RX: Potassium Chloride [Klor-Con] 10 meq PO QAM-WM 60 Days #60 pk 09/29/17 Rx - History PMHx: DM2 CKD 2 GERD COPD Hemiparesis 2/2 stroke CHF A. fib HTN HLD CABG, stents PSHx: Appendectomy Ria FHx: non-contributory Social: No smoking, no alcohol, lives at detention facility - Review of Systems General: reports: fever/chills, fatigue Eyes: denies: eye pain, vision changes ENT: denies: nasal congestion, rhinorrhea Respiratory: reports: cough, shortness of breath, exercise intolerance Cardiovascular: reports: edema. denies: chest pain, palpitation Gastrointestinal: reports: nausea, vomiting, diarrhea. denies: constipation, abdominal pain, GI bleeding Genitourinary: denies: incontinence, dysuria, polyuria Skin: denies: rashes, lesions Musculoskeletal: denies: pain, arthritis/arthralgias Neurological: reports: weakness (chronic L sided weakness,). denies: numbness, syncope Psychological: denies: anxiety, depression - Vital signs BP: [118/71] HR: [75] RR: [16] Tmax: [98.7] Pox: [98]% on [1L] Wt: [101.4kg] - Physical Exam Constitutional: NAD, awake, alert and oriented HEENT: normocephalic and atraumatic, PERRLA, MMM Neck: supple, FROM Heart: normal S1/S2 -Heart: irregularly irregular rhythm Lungs: no respiratory distress, good air movement -Lungs: crackles at the bases, no wheezes or rhonchi Abdomen: soft, non-tender, bowel sounds present Musculoskeletal: normal structure, ROM grossly normal Neurological: normal sensation -Neurological: cannot lift L arm, cannot lift L leg, 2/2 to hx CVA Skin: no rash/lesions, capillary refill <2 seconds -Heme/Lymphatic: mild petechiae Psychiatric: normal mood and affect FMR H&P: Results - Labs Result Diagrams: 10/11/17 11:32 10/11/17 11:32 Lab results: WBC 11.8 thou/uL (4.8-10.8) H 10/11/17 11:32 Hgb 11.0 g/dL (14.0-18.0) L 10/11/17 11:32 Hct 32.9 % (42.0-52.0) L 10/11/17 11:32 MCV 98.3 fl (80.0-94.0) H 10/11/17 11:32 Plt Count 308 thou/uL (130-400) 10/11/17 11:32 Neutrophils % 78.7 % (42.0-75.0) H 10/11/17 11:32 Sodium 133 mmol/L (136-145) L 10/11/17 11:32 Potassium 4.1 mmol/L (3.5-5.1) 10/11/17 11:32 Chloride 93 mmol/L (98-107) L 10/11/17 11:32 Carbon Dioxide 32 mmol/L (23-31) H 10/11/17 11:32 BUN 21 mg/dL (8.4-25.7) 10/11/17 11:32 Creatinine 1.15 mg/dL (0.6-1.3) 10/11/17 11:32 Glucose 121 mg/dL (83-110) H 10/11/17 11:32 Lactic Acid 1.0 mmol/L (0.5-2.2) 10/11/17 11:32 Calcium 9.7 mg/dL (7.8-10.44) 10/11/17 11:32 Total Bilirubin 1.3 mg/dL (0.2-1.2) H 10/11/17 11:32 AST 19 U/L (5-34) 10/11/17 11:32 ALT 11 U/L (8-55) 10/11/17 11:32 Alkaline Phosphatase 72 U/L (40-150) 10/11/17 11:32 Creatine Kinase 17 U/L (30-200) L 10/11/17 11:32 CK-MB (CK-2) 0.6 ng/mL (0-6.6) 10/11/17 11:32 B-Natriuretic Peptide 1124.7 pg/mL (0-100) H 10/11/17 11:32 Serum Total Protein 6.8 g/dL (5.8-8.1) 10/11/17 11:32 Albumin 3.5 g/dL (3.4-4.8) 10/11/17 11:32 Lipase 35 U/L (8-78) 10/11/17 11:32 - EKG Interpretation EKG: a fib, rate 60 - Radiology Interpretation Chest x-ray Additional comment: pleural effusion vs consolidation FMR H&P: A/P - Problem List (1) A-fib Current Visit: No Status: Acute Code(s): I48.91 - UNSPECIFIED ATRIAL FIBRILLATION Qualifiers: Atrial fibrillation type: paroxysmal Qualified Code(s): I48.0 - Paroxysmal atrial fibrillation (2) Acute hypoxemic respiratory failure Current Visit: No Status: Acute Code(s): J96.01 - ACUTE RESPIRATORY FAILURE WITH HYPOXIA (3) CAD (coronary artery disease) Current Visit: No Status: Chronic Code(s): I25.10 - ATHSCL HEART DISEASE OF [place] CORONARY ARTERY W/O ANG PCTRS Qualifiers: Coronary Disease-Associated Artery/Lesion type: [place] artery [place] vs. transplanted heart: [place] heart Associated angina: without angina Qualified Code(s): I25.10 - Atherosclerotic heart disease of [place] coronary artery without angina pectoris (4) DM type 2 (diabetes mellitus, type 2) Current Visit: No Status: Chronic Qualifiers: Diabetes mellitus complication status: with hyperglycemia (5) Dyslipidemia Current Visit: No Status: Chronic Code(s): E78.5 - HYPERLIPIDEMIA, UNSPECIFIED (6) Hypertension Current Visit: No Status: Chronic Code(s): I10 - ESSENTIAL (PRIMARY) HYPERTENSION (7) Acute diastolic CHF (congestive heart failure) Current Visit: No Status: Resolved Code(s): I50.31 - ACUTE DIASTOLIC ( CONGESTIVE) HEART FAILURE - Plan # Possible bilateral PNA - recent hospitalization, will cover for pseudomonas - no hypoxia in ED, re-breather in ambulance - Levoquin Zosyn - Duoneb PRN # Acute diastolic CHF exacerbation - EF 50-55% in Jul 2017 - Lasix 40mg IV BID - Strict I/Os - Titrate O2, wean as tolerated - home BP meds # HTN - home meds - Hydralazine PRN for BP >180 # Hx of UTI - asymptomatic - f/u on straight cath U/A, Ucx # CVA Hx - ST consulte on last admit - on soft diet at [place] #Chronic A Fib - home meds - rate controlled # DM - SSI, home levemir # CKD - trend Cr # PPx - SCDs, no anticoag 2/2 recent hemorrhagic stroke # Code - DNR Dispo: 2-3 days pending cultures and O2 requirements FMR H&P: Upper Level - Pertinent history 77yo CM with PMHx of hemiparesis 2/2 RT MCA CVA, HFpEF (50-55%), chronic Afib, COPD and HTN who [facility] due to worsening shortness of breath and feeling sick for the past 2 days. Associated with cough, orthopnea and swelling of his legs. Endorses subjective fevers, chills, dec appetite, nausea and vomiting. Had 2 episodes of vomiting after eating yesterday with one episode of emesis today. In ED given: ASA Lasix 40IV, Levaquin, Vanc, 500cc NS bolus. - Pertinent findings Gen: NAD HEENT: PERRLA Heart: S1 S2, irregular Lungs: bibasilar crackles Abd: soft, nt/nd/bs+ Neuro: residual LT facial droop, LUE hemiplegia, LLE hemiparesis Ext: BL 1+ pitting edema BNP 1124.7 CXR: bibasilar infiltrates, mild pulmonary vascular congestion, cardiomegaly - Plan Date/Time: 10/11/17 1403 1. Acute hypoxic respiratory failure: 2/2 CHF exacerbation & PNA. Patient was transported via EMS and placed on non-rebreather. Currently with O2 sats at 98% on 1L NS. Will treat underlying etiology. Continuous O2 sat to keep O2 sat >90%. 2. BL PNA: CXR showing bibasilar infiltrates. Given Levaquin and Vanc in the ED. Patient recently hospitalized about 2wks prior for CHF exacerbation and currently resides at [facility]. As patient with pseudomonas RF including COPD and recent treatment with zosyn for pseudomonas UTI, will give double coverage with Levaquin and Cefepime. Not HAP or MRSA RF so will d/c Vanc. Blood cxs pending. No urine obtained in ED so will obtain urine cx. 3. Acute on chronic HFpEF (50-55%): BNP elevated at 1125 and CXR w/ bibasilar infiltrates and mild pulm vascular congestion. Pt recently discharged on for CHF exacerbation and discharged on lasix 20mg PO. Cont Lasix 40mg IV. Strict I/Os, daily weights and fluid restriction. Cont home Lisinopril and metoprolol. 4. Indeterminate troponin: Troponin elevated at 0.038 though lower than previous hospitalization. EKG without any ischemic changes. Denies any chest pain. Trend q3H. 5. Hx of RT MCA CVA with residual LT sided symptoms. Cont ASA and crestor. 6. IDDM- controlled with A1c of 4.9% on 06/2017. Cont home insulin. Accuchecks ACHS. SSI. 7. Chronic Afib: Rate controlled. Cont metoprolol. Not on anticoagulant due to hemorrhagic conversion of CVA. 8. HTN: cont home regimen. 9. COPD: Not in acute exacerbation. Cont home meds. 10. CAD s/p CABG: cont ASA and crestor. 11. CKD II: stable. Cont to monitor. 12. Diet: HH/CC/Fluid restriction 13. PPx: SCDs 14. Code Status: DNR I, Pushpa Weinberg, have evaluated this patient and agree with findings/ plan as outlined by internet specialist resident. Pertinent changes/additions are listed here. Attending Addendum - Attending Addendum Date/Time: 10/11/17 1600 I personally evaluated the patient and discussed the management with Dr. Leigh I agree with the History, Examination, Assessment and Plan documented above with any addition or exceptions noted below. Patient with long standing CAD s/p CABG(2 vessel) and PTCA recent admit with exacerbation CHF (diastolic heart failure) and R CVA adm TPA with ICH. HX diabetes,COPD,gout, remote atrial fib patient with exacerbated HF r/o PNA patient seen HX and PE performed see Dr Leigh note for details. High bleeding risk will elect hold any anticoagulation at this time.
[2017-10-11 15:22] LABS: Troponin I 0.029 ng/mL (< 0.028)
[2017-10-11] MEDS ORDERED: guaiFENesin 100 MG/5 ML UDCUP PO PRN (15:55)
[2017-10-11] MEDS ORDERED: Simethicone Chewable 80 MG TAB PO PRN (15:55)
[2017-10-11] MEDS ORDERED: Bisacodyl 10 MG SUPP PR PRN (15:55)
[2017-10-11 16:14] LABS: Bilirubin Negative (Negative); Blood, Urine Negative (Negative); Clarity CLEAR (Clear); Glucose, Urine (Dipstick) Negative (Negative); Leukocyte Negative (Negative); Nitrite Negative (Negative); Protein, Urine (Dipstick) Negative (Neg-Trace); Specific Gravity, Urine 1.012 (1.002-1.036); pH, Urine 7.5 (5.0-9.0)
[2017-10-11] MEDS ORDERED: HumaLOG 300 UNITS/3 ML VIAL SC PRN (16:53)
[2017-10-11] MEDS ORDERED: Dextrose 50% Abboject 50 ML SYRINGE SLOW IVP PRN (16:53)
[2017-10-11] MEDS ORDERED: Ondansetron ODT 4 MG TAB PO PRN (16:53)
[2017-10-11] MEDS ORDERED: Dextrose 5% in Water 1,000 ML IV PRN (16:53)
[2017-10-11] MEDS ORDERED: cloNIDine 0.1mg/24 Hour PATCH TD SCH (17:00)
[2017-10-11] MEDS ORDERED: Furosemide 40 MG/4 ML VIAL SLOW IVP SCH (17:30)
[2017-10-11 18:04] LABS: Troponin I 0.034 ng/mL (< 0.028)
[2017-10-11] MEDS: Cefepime 2 GM, Syringe 2.5 ML in Sodium Chloride 0.9% 10 ML SLOW IVP SCH (18:55)
[2017-10-11 19:05] VITALS: BMI 30.9
[2017-10-11] MEDS: Famotidine 20 MG TAB PO SCH (20:45)
[2017-10-11] MEDS: Docusate 100 MG CAP PO SCH (20:45)
[2017-10-11] MEDS: Rosuvastatin 20 MG TAB PO SCH (20:45)
[2017-10-11] MEDS ORDERED: Cefepime 2 GM in Sodium Chloride 0.9% 100 ML IVPB SCH (21:00)
[2017-10-11] MEDS: Lisinopril 20 MG TAB PO SCH (21:04)
[2017-10-11] MEDS: Insulin Detemir 100 UNITS/ML 22 UNITS in Pre-Filled Syringe 1 EACH SC SCH (22:23)
[2017-10-12 00:01] LABS: Bilirubin Negative (Negative); Blood, Urine Moderate (Negative); Clarity CLEAR (Clear); Glucose, Urine (Dipstick) Negative (Negative); Leukocyte Trace (Negative); Nitrite Negative (Negative); Protein, Urine (Dipstick) Negative (Neg-Trace); Specific Gravity, Urine 1.013 (1.002-1.036); Urobilinogen 0.2 mg/dL (0.2-1.0)
[2017-10-12 00:04] LABS: Bacteria/HPF None Seen HPF (None Seen); Hyaline Casts/LPF 0-3 HYALINE CAST LPF (0-3 Hyaline); Pathc Cast-AUWi Flag 0.54 (0-2.49); RBC/HPF GREATER THAN 50-TNTC HPF (0-3); Squamous Epithelial None Seen HPF (0-3)
[2017-10-12 05:32] LABS: #Eosinphils 0.2 thou/uL (0.0-0.7); #Monocytes 0.9 thou/uL (0.11-0.59); #Neutrophils 8.1 thou/uL (1.40-6.50); %Basophils 0.2 % (0.0-1.0); %Eosinophils 2.3 % (0.0-10.0); %Lymphocytes 9.5 % (21.0-51.0); Hemoglobin 8.9 g/dL (14.0-18.0); Mean Corpuscular HGB CONC 33.3 g/dL (32.0-36.0); Mean Corpuscular Volume 95.9 fl (80.0-94.0); Mean Platelet Volume 7.6 fL (7.4-10.4); Platelet Count 239 thou/uL (130-400); Red Blood Cell (RBC) Count 2.79 mill/uL (4.70-6.10); White Blood Cell (WBC) Count 10.3 thou/uL (4.8-10.8)
[2017-10-12 05:40] LABS: Anion Gap 13 mmol/L (10-20); BUN (Urea Nitrogen) 19 mg/dL (8.4-25.7); Calc. Creatinine Clearance 95 mL/min (70-130); Calcium 9.1 mg/dL (7.8-10.44); Carbon Dioxide 30 mmol/L (23-31); Chloride 94 mmol/L (98-107); Estimated GFR-MDRD 74; Glucose 98 mg/dL (83-110); Potassium 3.6 mmol/L (3.5-5.1); Sodium 133 mmol/L (136-145)
[2017-10-12] MEDS: Furosemide 40 MG/4 ML VIAL SLOW IVP SCH ×2 (06:11→14:08)
[2017-10-12] MEDS: Cefepime 2 GM, Syringe 2.5 ML in Sodium Chloride 0.9% 10 ML SLOW IVP SCH ×2 (06:12→18:33)
--- NOTE | 2017-10-12 06:21 | PDOC.FM ---
- Subjective Subjective: Patient had a good night. He denies chest pain, sob, n/v/d, fevers, chills, or cough. His only concern this morning is that he does not want to be constipated and he would like his Milk of Mg and Linzess restarted. He otherwise states he is improved overall. No other complaints this morning. - Objective Vital Signs & Weight: Vital Signs (12 hours) Temp Pulse Resp BP BP Pulse Ox 10/12/17 04:41 98.8 F 61 18 180/83 H 10/12/17 02:24 58 L 14 93 L 10/12/17 00:00 98.8 F 60 18 170/78 H 98 10/11/17 22:49 62 14 95 10/11/17 21:04 181/99 H 10/11/17 20:00 98.1 F 64 20 181/79 H 98 10/11/17 18:44 60 14 98 Weight Weight 105.233 kg I&O: 10/10/17 10/11/17 10/12/17 06:59 06:59 06:59 Intake Total 240 Output Total 1150 Balance -910 Result Diagrams: 10/12/17 04:59 10/12/17 04:59 Phys Exam - Physical Examination HEENT: moist MMs Respiratory: no wheezing, clear to auscultation bilateral Cardiovascular: no significant murmur, irregular Gastrointestinal: soft, non-tender, no distention, positive bowel sounds Left sided residual deficits Psychiatric: normal affect, A&O x 3 Skin: no rash Dx/Plan (1) A-fib Code(s): I48.91 - UNSPECIFIED ATRIAL FIBRILLATION Status: Acute Qualifiers: Atrial fibrillation type: paroxysmal Qualified Code(s): I48.0 - Paroxysmal atrial fibrillation (2) Acute hypoxemic respiratory failure Code(s): J96.01 - ACUTE RESPIRATORY FAILURE WITH HYPOXIA Status: Acute (3) CAD (coronary artery disease) Code(s): I25.10 - ATHSCL HEART DISEASE OF [place] CORONARY ARTERY W/O ANG PCTRS Status: Chronic Qualifiers: Coronary Disease-Associated Artery/Lesion type: [place] artery [place] vs. transplanted heart: [place] heart Associated angina: without angina Qualified Code(s): I25.10 - Atherosclerotic heart disease of [place] coronary artery without angina pectoris (4) DM type 2 (diabetes mellitus, type 2) Status: Chronic Qualifiers: Diabetes mellitus complication status: with hyperglycemia (5) Dyslipidemia Code(s): E78.5 - HYPERLIPIDEMIA, UNSPECIFIED Status: Chronic (6) Hypertension Code(s): I10 - ESSENTIAL (PRIMARY) HYPERTENSION Status: Chronic (7) Anemia Code(s): D64.9 - ANEMIA, UNSPECIFIED Status: Acute (8) Diastolic CHF, acute on chronic Code(s): I50.33 - ACUTE ON CHRONIC DIASTOLIC (CONGESTIVE) HEART FAILURE Status : Resolved - Plan Plan: # Possible bilateral PNA - recent hospitalization, will cover for pseudomonas - no hypoxia in ED, re-breather in ambulance - Levoquin, Zosyn - Duoneb PRN # Acute diastolic CHF exacerbation - EF 50-55% in Jul 2017 - Lasix 40mg IV BID - Strict I/Os - Titrate O2, wean as tolerated - home BP meds # Anemia - unknown etiology - Lowest recorded Hgb of 8.9 - Will recheck CBC and FOBT # HTN - home meds - Hydralazine PRN for BP >180 # Hx of UTI - asymptomatic - f/u on straight cath U/A, Ucx # CVA Hx - ST consulted on last admit - on soft diet at [place] #Chronic A Fib - home meds - rate controlled # DM - SSI, home levemir # CKD - trend Cr Disposition: Stable. Will await results
[2017-10-12] MEDS ORDERED: Milk Of Magnesia 30 ML UDCUP PO SCH (09:00)
[2017-10-12] MEDS ORDERED: LINACLOTIDE PO SCH (09:00)
[2017-10-12] MEDS ORDERED: Non-Formulary Item 1 EACH (Linaclotide [Linzess] 1 CAP) PO SCH (09:00)
[2017-10-12] MEDS: Famotidine 20 MG TAB PO SCH ×2 (09:05→21:09)
[2017-10-12] MEDS: Docusate 100 MG CAP PO SCH ×2 (09:05→21:08)
[2017-10-12] MEDS: Folic Acid 1 MG TAB PO SCH (09:05)
[2017-10-12] MEDS: Milk Of Magnesia 30 ML UDCUP PO SCH (09:05)
[2017-10-12] MEDS: Lisinopril 20 MG TAB PO SCH ×2 (09:05→21:09)
[2017-10-12 15:00] LABS: Hemoglobin 8.8 g/dL (14.0-18.0)
[2017-10-12] MEDS: Acetaminophen 325 MG TAB PO PRN (16:31)
[2017-10-12] MEDS: Insulin Detemir 100 UNITS/ML 22 UNITS in Pre-Filled Syringe 1 EACH SC SCH (21:09)
[2017-10-12] MEDS: Rosuvastatin 20 MG TAB PO SCH (21:10)
[2017-10-13] MEDS: Furosemide 40 MG/4 ML VIAL SLOW IVP SCH ×2 (05:40→13:55)
[2017-10-13] MEDS: Cefepime 2 GM, Syringe 2.5 ML in Sodium Chloride 0.9% 10 ML SLOW IVP SCH ×2 (05:40→18:29)
--- NOTE | 2017-10-13 08:42 | PDOC.FM ---
- Subjective Subjective: Patient had a good night. He said that he would like to be discharged to his house instead of the SNF. We had a long conversation about the risks and benefits and I recommended he go back to SNF for further rehabilitation and then decisions could be made from there. He denies chest pain, sob, n/v/d. He has not had a BM, but doesn't have abdominal pain. He states he feels like he is peeing a lot. No other complaints today. - Objective Vital Signs & Weight: Vital Signs (12 hours) Temp Pulse Resp BP BP Pulse Ox 10/13/17 07:32 98.3 F 74 18 169/74 H 95 10/13/17 06:28 83 16 96 10/13/17 04:15 98.0 F 67 18 175/78 H 96 10/13/17 02:26 63 14 93 L 10/12/17 22:27 65 14 95 10/12/17 21:09 154/70 H Weight Weight 105.052 kg I&O: 10/12/17 10/13/17 10/14/17 06:59 06:59 06:59 Intake Total 240 1600 Output Total 1150 4270 Balance -910 -1750 Result Diagrams: 10/12/17 14:54 10/12/17 04:59 <Link Donovan - Last Filed: 10/13/17 08:40> - Objective Vital Signs & Weight: Vital Signs (12 hours) Temp Pulse Pulse Pulse Resp BP BP 10/13/17 11:05 72 18 10/13/17 11:01 98.2 F 66 16 10/13/17 09:51 69 69 160/73 H 154/71 H 10/13/17 08:55 98.3 F 74 18 10/13/17 07:32 98.3 F 74 18 10/13/17 06:28 83 16 10/13/17 04:15 98.0 F 67 18 10/13/17 02:26 63 14 BP Pulse Ox 10/13/17 11:05 96 10/13/17 11:01 158/71 H 93 L 10/13/17 09:51 10/13/17 08:55 95 10/13/17 07:32 169/74 H 95 10/13/17 06:28 96 10/13/17 04:15 175/78 H 96 10/13/17 02:26 93 L Weight Weight 105.052 kg I&O: 10/12/17 10/13/17 10/14/17 06:59 06:59 06:59 Intake Total 240 1600 Output Total 1150 4270 Balance -910 -2030 Result Diagrams: 10/13/17 08:30 10/12/17 04:59 <SyedJay - Last Filed: 10/13/17 12:41> Phys Exam - Physical Examination HEENT: moist MMs Neck: no nodes Respiratory: no wheezing, clear to auscultation bilateral Cardiovascular: no significant murmur, irregular Gastrointestinal: soft, non-tender, no distention, positive bowel sounds Musculoskeletal: edema present (1+ to mid calf ) Residual left sided deficits Psychiatric: normal affect, A&O x 3 <Link Donovan - Last Filed: 10/13/17 08:40> Dx/Plan (1) A-fib Code(s): I48.91 - UNSPECIFIED ATRIAL FIBRILLATION Status: Acute QualifierTitle: Atrial fibrillation type: paroxysmal Qualified Code(s): I48.0 - Paroxysmal atrial fibrillation (2) Acute hypoxemic respiratory failure Code(s): J96.01 - ACUTE RESPIRATORY FAILURE WITH HYPOXIA Status: Acute (3) CAD (coronary artery disease) Code(s): I25.10 - ATHSCL HEART DISEASE OF [place] CORONARY ARTERY W/O ANG PCTRS Status: Chronic QualifierTitle: Coronary Disease-Associated Artery/Lesion type: [place] artery [place] vs. transplanted heart: [place] heart Associated angina: without angina Qualified Code(s): I25.10 - Atherosclerotic heart disease of [place] coronary artery without angina pectoris (4) DM type 2 (diabetes mellitus, type 2) Status: Chronic QualifierTitle: Diabetes mellitus complication status: with hyperglycemia (5) Dyslipidemia Code(s): E78.5 - HYPERLIPIDEMIA, UNSPECIFIED Status: Chronic (6) Hypertension Code(s): I10 - ESSENTIAL (PRIMARY) HYPERTENSION Status: Chronic (7) Anemia Code(s): D64.9 - ANEMIA, UNSPECIFIED Status: Acute (8) Diastolic CHF, acute on chronic Code(s): I50.33 - ACUTE ON CHRONIC DIASTOLIC (CONGESTIVE) HEART FAILURE Status : Resolved - Plan Plan: # Possible bilateral PNA - recent hospitalization, will cover for pseudomonas - no hypoxia in ED, re-breather in ambulance - Levoquin, Zosyn - Duoneb PRN - Cultures pending # Acute diastolic CHF exacerbation - EF 50-55% in Jul 2017 - Lasix 40mg IV BID - Strict I/Os - Titrate O2, wean as tolerated - home BP meds # Anemia - unknown etiology - Lowest recorded Hgb of 8.8 - Will FOBT # HTN - home meds - Hydralazine PRN for BP >180 # Hx of UTI - asymptomatic - f/u on straight cath U/A, Ucx # CVA Hx - ST consulted on last admit - on soft diet at [place] #Chronic A Fib - home meds - rate controlled # DM - SSI, home levemir # CKD - trend Cr Disposition: Stable. Patient should be ready for discharge later today back to SNF. <Link Donovan - Last Filed: 10/13/17 08:40> (1) A-fib Code(s): I48.91 - UNSPECIFIED ATRIAL FIBRILLATION Status: Acute Qualifiers: Atrial fibrillation type: paroxysmal Qualified Code(s): I48.0 - Paroxysmal atrial fibrillation (2) Acute hypoxemic respiratory failure Code(s): J96.01 - ACUTE RESPIRATORY FAILURE WITH HYPOXIA Status: Acute (3) CAD (coronary artery disease) Code(s): I25.10 - ATHSCL HEART DISEASE OF [place] CORONARY ARTERY W/O ANG PCTRS Status: Chronic Qualifiers: Coronary Disease-Associated Artery/Lesion type: [place] artery [place] vs. transplanted heart: [place] heart Associated angina: without angina Qualified Code(s): I25.10 - Atherosclerotic heart disease of [place] coronary artery without angina pectoris (4) DM type 2 (diabetes mellitus, type 2) Status: Chronic Qualifiers: Diabetes mellitus complication status: with hyperglycemia (5) Dyslipidemia Code(s): E78.5 - HYPERLIPIDEMIA, UNSPECIFIED Status: Chronic (6) Hypertension Code(s): I10 - ESSENTIAL (PRIMARY) HYPERTENSION Status: Chronic (7) Acute diastolic CHF (congestive heart failure) Code(s): I50.31 - ACUTE DIASTOLIC (CONGESTIVE) HEART FAILURE Status: Resolved <Jay Lynch - Last Filed: 10/13/17 12:41> Attending Addendum - Attending Addendum Date/Time: 10/13/17 1240 I personally evaluated the patient and discussed the management with Dr. Donovan I agree with the History, Examination, Assessment and Plan documented above with any addition or exceptions noted below.Patient stable CXR with lag to clinical improvement patient agreeable to D/C to SNF verse home. <Jay Lynch - Last Filed: 10/13/17 12:41>
[2017-10-13 08:53] LABS: #Eosinphils 0.2 thou/uL (0.0-0.7); #Lymphocytes 0.9 thou/uL (1.20-3.40); #Neutrophils 7.1 thou/uL (1.40-6.50); %Basophils 0.4 % (0.0-1.0); %Eosinophils 2.6 % (0.0-10.0); %Lymphocytes 9.8 % (21.0-51.0); %Monocytes 10.4 % (0.0-10.0); %Neutrophils 76.8 % (42.0-75.0); Hemoglobin 9.8 g/dL (14.0-18.0); Mean Corpuscular HGB CONC 33.3 g/dL (32.0-36.0); Mean Corpuscular Hemoglobin 31.9 pg (27.0-31.0); Mean Corpuscular Volume 95.8 fl (80.0-94.0); Mean Platelet Volume 7.8 fL (7.4-10.4); Platelet Count 250 thou/uL (130-400); RBC Distribution Width 12.8 % (11.5-14.5); Red Blood Cell (RBC) Count 3.08 mill/uL (4.70-6.10); White Blood Cell (WBC) Count 9.3 thou/uL (4.8-10.8)
[2017-10-13] MEDS: Folic Acid 1 MG TAB PO SCH (09:15)
[2017-10-13] MEDS: Docusate 100 MG CAP PO SCH ×2 (09:15→21:54)
[2017-10-13] MEDS: Milk Of Magnesia 30 ML UDCUP PO SCH (09:15)
[2017-10-13] MEDS: Famotidine 20 MG TAB PO SCH ×2 (09:15→21:54)
[2017-10-13] MEDS: Lisinopril 20 MG TAB PO SCH ×2 (09:15→21:54)
--- NOTE | 2017-10-13 09:37 | RAD ---
CHEST ONE VIEW: History: Dyspnea. Comparison: 10-04-17 FINDINGS: Cardiac silhouette is magnified and upper limits of normal in size. Pulmonary vasculature is upper li mits of normal. Patchy areas of parenchymal infiltrate throughout each lung progressed slightly since the prior study. Mediastinum is midline with post-operative changes and aortic calcification. No jose alberto dence of pneumothorax. IMPRESSION: Slight interval worsening of patchy bilateral airspace disease. POS: [facility]
[2017-10-13] MEDS: Rosuvastatin 20 MG TAB PO SCH (21:54)
[2017-10-13] MEDS: Insulin Detemir 100 UNITS/ML 22 UNITS in Pre-Filled Syringe 1 EACH SC SCH (21:55)
--- NOTE | 2017-10-14 04:50 | DIS-2 ---
DATE OF ADMISSION: 10/11/2017 DATE OF DISCHARGE: 10/14/2017 RESIDENT: Dr. Link Donovan ADMITTING ATTENDING: Dr. Jay Lynch DISCHARGE ATTENDING: Dr. Jay Lynch CONSULTS: Cardiac Rehab, dietitian, Heart Failure Management disease, OT evaluation and treatment, PT evaluation and treatment. PROCEDURES: The patient underwent a chest x-ray on 10/11/2017 that showed a change in median sternotomy are again seen. The heart is enlarged. There is mild pulmonary vascular congestion. Bibasilar infiltrates are present. No pneumothoraces or large effusions are seen. Small effusions cannot be excluded. The patient also underwent a chest x-ray on 10/13/2017 that showed a slight interval worsening of patchy bilateral airspace disease. PRIMARY DIAGNOSIS: 1. Atrial fibrillation. 2. Acute hypoxemic respiratory failure. 3. Diastolic congestive heart failure, acute on chronic. 4. Coronary artery disease. 5. Diabetes mellitus type 2. 6. Dyslipidemia. 7. Hypertension. 8. Anemia. DISCHARGE MEDICATIONS: 1. Albuterol sulfate 200 q.4h. p.r.n. 2. Dulcolax 10 mg HI daily p.r.n. 3. Docusate 100 mg p.o. b.i.d. p.r.n. 4. Flonase nasal spray. 5. Folic acid 1 mg p.o. daily. 6. Imdur 60 mg p.o. daily. 7. Lisinopril 20 mg p.o. b.i.d. 8. Claritin 10 mg p.o. daily p.r.n. 9. Toprol-XL 200 mg p.o. daily. 10. Potassium chloride 20 mEq p.o. b.i.d. with meals. 11. Ranexa 1000 mg p.o. b.i.d. 12. Coenzyme Q10 100 mg p.o. daily. 13. Linzess 290 mcg 1 cap p.o. daily. 14. Milk of Magnesia 400 mg p.o. daily. 15. Lactulose 15 mL p.o. b.i.d. p.r.n. 16. Insulin detemir 18 units subcu at bedtime. 17. Centrum, men's tablet 1 p.o. daily. 18. Famotidine 20 mg p.o. daily. 19. Clonidine 1 mg transdermal q. 7 days. 20. Florastor 250 mg 1 cap daily. 21. Nexium 40 mg daily. 22. DuoNeb 3 mL t.i.d. nebulized. 23. Hydralazine 25 mg p.o. q.4h. p.r.n. 24. Guaifenesin 10 mL p.o. q.4h. p.r.n. 25. Hydralazine 100 mg p.o. b.i.d. 26. Vitamin B12 100 mcg intramuscularly every 28 days. 27. Dulera 200/5 b.i.d. 28. Furosemide 40 mg p.o. daily. 29. Levofloxacin 750 mg p.o. daily. DISCONTINUED MEDICATIONS: Furosemide 20 mg p.o. daily. HISTORY OF PRESENT ILLNESS AND HOSPITAL COURSE: This is a 77-year-old male who presents to the ED for evaluation of congestive heart failure exacerbation versus pneumonia. He states about 2 days ago he started feeling generalized weakness, got more short of breath and was coughing up yellow mucus. He states he did experience fevers, chills, and sweats. He was not able to complete his usual PT exercise because of fatigue. He says he does feel more short of breath when he lays down flat. He has had vomiting for the past 2 days, only one time per day. He has had decreased appetite. He states he had 1 episode of loose stool 3 days ago. He denies abdominal pain. Denies any blood in the stool. The patient was recently discharged from the hospital for a CHF exacerbation on 09/17/2017. An echo in 07/2013 showed an EF of 50-55% with tricuspid regurgitation. During this hospitalization, the patient had some notable lab values, his hemoglobin ranged from 11.0 on day of admission to 9.8 on day of discharge. The patient also had a glucose that ranged from as low as 97 to as high as 232. He had blood cultures that showed no growth at 48 hours, he was negative for influenza A and B as well as no growth at 36 hours per urine culture. The patient was diuresed over roughly 4 liters of fluid. His admission weight to this hospitalization was 1 kilogram heavier than it was when he was discharged from his last hospitalization. He had good response from the IV Lasix and had no problems further. The patient's respiratory status improved. He was requiring initially 1-2 liters of oxygen via nasal cannula to maintain sats in the 90% saturation range. As the diuresis became more successful, he was able to be weaned off of his oxygen to be on room air to maintain his saturations. 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 His neurologic exam was consistent with those findings from his previous hospitalization and were unchanged. The patient otherwise was being evaluated for an acute drop in his hemoglobin. He denied any bloody stools. Denied any bloody vomit or other sources of bleeding. However, the FOBT was not able to be obtained as he lacked stool production. We will make a note that when he is discharged back to the [facility] that he will need to have a further observation and further workup of this mild anemia. Otherwise, the patient tolerated the hospitalization well and was discharged in appropriate condition. Patient was actually discharged on 10/14/17 due to unavailability of beds at [facility]. No acute events occurred overnight. He was discharged to the [facility] facility. DISPOSITION: Stable. DISCHARGE INSTRUCTIONS: 1. Location: He will be discharged back to [facility]. 2. Diet: Diet will be a diabetic heart healthy diet with a fluid restriction to 1500 mL per day. 3. Activity will be with orthopedic limitations because of that residual left- sided deficits. 4. Followup: Follow up will be with his PCP, Dr. Pedraza in 3 days as well as the current resident covering the geriatric service at [facility] in the coming days as well. We wish this pancho the best of luck and hope that he has no further complications from this condition. BUTCH
[2017-10-14] MEDS: Cefepime 2 GM, Syringe 2.5 ML in Sodium Chloride 0.9% 10 ML SLOW IVP SCH (06:11)
[2017-10-14] MEDS: Acetaminophen 325 MG TAB PO PRN (06:11)
[2017-10-14] MEDS: Furosemide 40 MG/4 ML VIAL SLOW IVP SCH (06:12)
--- NOTE | 2017-10-14 08:16 | PDOC.FM ---
- Subjective Subjective: Patient states he had a kunal. He was discharged yesterday, but his [place] [facility] did not [facility] an open bed. He states that he wants to decrease his therapy regimen again today. He denies sob, n/v/d, fevers, chills, or chest pain. He states he has hasn't been urinating as much. No other complaints today. - Objective Vital Signs & Weight: Vital Signs (12 hours) Temp Pulse Resp BP BP Pulse Ox 10/14/17 07:28 72 16 10/14/17 04:00 99.9 F H 70 16 175/78 H 98 10/14/17 03:40 94 L 10/14/17 00:04 94 L 10/14/17 00:00 98.6 F 71 20 154/68 H 96 10/13/17 23:45 98.6 F 71 20 154/68 H 96 10/13/17 21:54 148/76 H Weight Weight 103.646 kg I&O: 10/13/17 10/14/17 10/15/17 06:59 06:59 06:59 Intake Total 1600 1200 Output Total 4270 1000 Balance -2670 200 Result Diagrams: 10/13/17 08:30 10/12/17 04:59 <Link Donovan - Last Filed: 10/14/17 08:15> - Objective Vital Signs & Weight: Vital Signs (12 hours) Temp Pulse Resp BP Pulse Ox 10/14/17 11:01 64 16 10/14/17 09:00 97.5 F L 81 18 94 L 10/14/17 08:58 97.5 F L 81 18 142/104 H 94 L 10/14/17 07:28 72 16 10/14/17 04:00 99.9 F H 70 16 175/78 H 98 10/14/17 03:40 94 L Weight Weight 103.646 kg I&O: 10/13/17 10/14/17 10/15/17 06:59 06:59 06:59 Intake Total 1600 1200 Output Total 4270 1000 Balance -2670 200 Result Diagrams: 10/13/17 08:30 10/12/17 04:59 <Jay Lynch - Last Filed: 10/14/17 12:39> Phys Exam - Physical Examination HEENT: moist MMs Neck: no nodes Respiratory: no wheezing, clear to auscultation bilateral Cardiovascular: no significant murmur, irregular Gastrointestinal: soft, non-tender, no distention, positive bowel sounds Musculoskeletal: no edema, pulses present Residual left sided deficits Psychiatric: normal affect, A&O x 3 Skin: no rash <VenusLink muñiz - Last Filed: 10/14/17 08:15> Dx/Plan (1) A-fib Code(s): I48.91 - UNSPECIFIED ATRIAL FIBRILLATION Status: Acute QualifierTitle: Atrial fibrillation type: paroxysmal Qualified Code(s): I48.0 - Paroxysmal atrial fibrillation (2) Acute hypoxemic respiratory failure Code(s): J96.01 - ACUTE RESPIRATORY FAILURE WITH HYPOXIA Status: Acute (3) CAD (coronary artery disease) Code(s): I25.10 - ATHSCL HEART DISEASE OF [place] CORONARY ARTERY W/O ANG PCTRS Status: Chronic QualifierTitle: Coronary Disease-Associated Artery/Lesion type: [place] artery [place] vs. transplanted heart: [place] heart Associated angina: without angina Qualified Code(s): I25.10 - Atherosclerotic heart disease of [place] coronary artery without angina pectoris (4) DM type 2 (diabetes mellitus, type 2) Status: Chronic QualifierTitle: Diabetes mellitus complication status: with hyperglycemia (5) Dyslipidemia Code(s): E78.5 - HYPERLIPIDEMIA, UNSPECIFIED Status: Chronic (6) Hypertension Code(s): I10 - ESSENTIAL (PRIMARY) HYPERTENSION Status: Chronic (7) Anemia Code(s): D64.9 - ANEMIA, UNSPECIFIED Status: Acute (8) Diastolic CHF, acute on chronic Code(s): I50.33 - ACUTE ON CHRONIC DIASTOLIC (CONGESTIVE) HEART FAILURE Status : Resolved - Plan Plan: # Possible bilateral PNA - recent hospitalization, will cover for pseudomonas - no hypoxia in ED, re-breather in ambulance - Levoquin PO - Duoneb PRN - Cultures pending # Acute diastolic CHF exacerbation - EF 50-55% in Jul 2017 - Lasix 40mg PO - Strict I/Os - - home BP meds # Anemia - unknown etiology - Lowest recorded Hgb of 8.8 - Will FOBT # HTN - home meds - Hydralazine PRN for BP >180 # Hx of UTI - asymptomatic - f/u on straight cath U/A, Ucx # CVA Hx - ST consulted on last admit - on soft diet at [facility] #Chronic A Fib - home meds - rate controlled # DM - SSI, home levemir # CKD - trend Cr Disposition: Stable. Patient should be ready for discharge later today back to SNF. <Link Donovan - Last Filed: 10/14/17 08:15> (1) A-fib Code(s): I48.91 - UNSPECIFIED ATRIAL FIBRILLATION Status: Acute Qualifiers: Atrial fibrillation type: paroxysmal Qualified Code(s): I48.0 - Paroxysmal atrial fibrillation (2) Acute hypoxemic respiratory failure Code(s): J96.01 - ACUTE RESPIRATORY FAILURE WITH HYPOXIA Status: Acute (3) CAD (coronary artery disease) Code(s): I25.10 - ATHSCL HEART DISEASE OF [place] CORONARY ARTERY W/O ANG PCTRS Status: Chronic Qualifiers: Coronary Disease-Associated Artery/Lesion type: [place] artery [place] vs. transplanted heart: [place] heart Associated angina: without angina Qualified Code(s): I25.10 - Atherosclerotic heart disease of [place] coronary artery without angina pectoris (4) DM type 2 (diabetes mellitus, type 2) Status: Chronic Qualifiers: Diabetes mellitus complication status: with hyperglycemia (5) Dyslipidemia Code(s): E78.5 - HYPERLIPIDEMIA, UNSPECIFIED Status: Chronic (6) Hypertension Code(s): I10 - ESSENTIAL (PRIMARY) HYPERTENSION Status: Chronic <Jay Lynch - Last Filed: 10/14/17 12:39> Attending Addendum - Attending Addendum Date/Time: 10/14/17 1238 I personally evaluated the patient and discussed the management with Dr. Donovan I agree with the History, Examination, Assessment and Plan documented above with any addition or exceptions noted below. Patient reached optimal hospital benefit stable to dismiss as SNF available today continue outpatient f/u as per Dr Donovan <Jay Lynch - Last Filed: 10/14/17 12:39>
[2017-10-14] MEDS ORDERED: Furosemide 40 MG TAB PO SCH (09:00)
[2017-10-14] MEDS: Folic Acid 1 MG TAB PO SCH (09:05)
[2017-10-14] MEDS: Famotidine 20 MG TAB PO SCH (09:05)
[2017-10-14] MEDS: Docusate 100 MG CAP PO SCH (09:05)
[2017-10-14] MEDS: Milk Of Magnesia 30 ML UDCUP PO SCH (09:06)
[2017-10-14] MEDS: Lisinopril 20 MG TAB PO SCH (09:06)
[2017-10-14 17:55] VITALS: BP 156/73; TEMP 98.4
--- NOTE | 2017-10-16 12:37 | EKG ---
Test Reason : Blood Pressure : / mmHG Vent. Rate : 060 BPM Atrial Rate : 060 BPM P-R Int : 096 ms QRS Dur : 106 ms QT Int : 436 ms P-R-T Axes : 011 006 175 degrees QTc Int : 436 ms Sinus rhythm with short NM with Premature supraventricular complexes Abnormal ECG Confirmed by MARISELA FRY, HUGO ([id number]), editor map MAIKOL HUMPHREY ([id number]) on 10/16/2017 12:36:12 PM Referred By: Confirmed By:HUGO ANTONIO MD
== END 2017-10-14 18:47 | DRG 291 ==
LOC: ERS 10:54 → 2NO 13:45
PROVIDERS: ADMIT Family Medicine; ATTEND Family Medicine
DX: I13.0 Hypertensive heart and chronic kidney disease with heart failure and stage 1 through stage 4 chronic kidney disease, or unspecified chronic kidney disease (principal); J96.01 Acute respiratory failure with hypoxia; J18.9 Pneumonia, unspecified organism; I48.0 Paroxysmal atrial fibrillation; E11.65 Type 2 diabetes mellitus with hyperglycemia; E11.22 Type 2 diabetes mellitus with diabetic chronic kidney disease; I48.2 Chronic atrial fibrillation; I50.33 Acute on chronic diastolic (congestive) heart failure; J44.0 Chronic obstructive pulmonary disease with (acute) lower respiratory infection; I69.354 Hemiplegia and hemiparesis following cerebral infarction affecting left non-dominant side; I25.10 Atherosclerotic heart disease of native coronary artery without angina pectoris; E78.5 Hyperlipidemia, unspecified; D64.9 Anemia, unspecified; K21.9 Gastro-esophageal reflux disease without esophagitis; Z95.1 Presence of aortocoronary bypass graft; I69.392 Facial weakness following cerebral infarction; Z66 Do not resuscitate; Z95.5 Presence of coronary angioplasty implant and graft; M10.9 Gout, unspecified; E66.9 Obesity, unspecified; N18.2 Chronic kidney disease, stage 2 (mild); Z68.28 Body mass index [BMI] 28.0-28.9, adult
CPT/HCPCS: 36415; 36416; 51702; 71045; 80048; 80053; 81003; 81015; 82550; 82553; 83605; 83690; 83880; 84484; 85025; 86850; 86900; 86901; 87040; 87070; 87086; 87205; 87804; 93005; 94150; 94640; 96361; 96365; 96367; 96375; G8978-GP-CN; G8979-GP-CL; G8987-GO-CL; G8988-GO-CJ; G8996-GN-CJ; G8997-GN-CI; J0692; J1815; J1940; J1956; J3370; J7620; Q0162

== ENCOUNTER 2018-05-06 22:25 | Inpatient (IN) | payer MEDICARE ==
[2018-05-06 23:20] LABS: #Eosinphils 0.1 thou/uL (0.0-0.7); #Lymphocytes 1.2 thou/uL (1.20-3.40); #Monocytes 0.5 thou/uL (0.11-0.59); #Neutrophils 11.6 thou/uL (1.40-6.50); %Basophils 0.1 % (0.0-1.0); %Eosinophils 0.6 % (0.0-10.0); %Monocytes 3.6 % (0.0-10.0); %Neutrophils 86.8 % (42.0-75.0); Hemoglobin 10.3 g/dL (14.0-18.0); Mean Corpuscular Hemoglobin 34.2 pg (27.0-31.0); Mean Platelet Volume 8.6 fL (7.4-10.4); Platelet Count 152 thou/uL (130-400); White Blood Cell (WBC) Count 13.4 thou/uL (4.8-10.8)
[2018-05-06] MEDS ORDERED: Acetaminophen 500 MG TAB ONE (23:26)
[2018-05-06] MEDS ORDERED: Sodium Chloride 0.9% 100 ML ONE (23:26)
[2018-05-06] MEDS ORDERED: Piperacillin/Tazobactam 3.375 GM VIAL ONE (23:26)
[2018-05-06] MEDS ORDERED: Vancomycin HCl 1 GM in Premix Bag 1 BAG IVPB SCH (23:30)
[2018-05-06] MEDS ORDERED: Ondansetron HCl/PF 4 MG/2 ML Vial ONE (23:32)
[2018-05-06 23:40] LABS: ALT (SGPT) 13 U/L (8-55); AST (SGOT) 24 U/L (5-34); Albumin 3.1 g/dL (3.4-4.8); Alkaline Phosphatase 94 U/L (40-150); Anion Gap 16 mmol/L (10-20); BUN (Urea Nitrogen) 27 mg/dL (8.4-25.7); Bilirubin, Total 0.7 mg/dL (0.2-1.2); Calc. Creatinine Clearance 0 mL/min (70-130); Carbon Dioxide 22 mmol/L (23-31); Chloride 100 mmol/L (98-107); Estimated GFR-MDRD 86; Globulin 2.6 g/dL (2.4-3.5); Glucose 119 mg/dL (83-110); Potassium 4.5 mmol/L (3.5-5.1); Protein, Total 5.7 g/dL (5.8-8.1); Sodium 133 mmol/L (136-145)
--- NOTE | 2018-05-06 23:50 | RAD ---
PORTABLE SEMIUPRIGHT FRONTAL CHEST RADIOGRAPH 05/06/18 COMPARISON: 11/02/17 HISTORY: Fever. FINDINGS: No pneumothorax is seen. There is pulmonary vascular congestion. The cardiac silhouette is prominent. Midline sternotomy wires and mediastinal clips are present. There is hazy increased density in bilateral perihilar regions and both lung bases. This includes vag ue hazy density in the mid right lung zone which could represent air space disease or trapped fluid w ithin the intralobar fissure. Blunting of bilateral costophrenic angles suggests small bilateral pleu ral effusions. IMPRESSION: Findings suggesting pulmonary edema. Recommend followup imaging following treatment to document resol ution with PA and lateral imaging. Hazy density in the mid right lung zone may represent infectious p neumonitis in the proper clinical setting. POS: [facility]
--- NOTE | 2018-05-06 23:59 | CT ---
HEAD CT WITHOUT CONTRAST 05/06/18 COMPARISON: 07/26/18 HISTORY: Altered mental status with confusion and fever. TECHNIQUE: Serial axial CT imaging at 5 mm intervals from vertex through skull base without contrast. FINDINGS: There is partial opacification of the mastoid air cells on the right, stable. There is atheroscleroti c calcification of the cavernous carotid arteries. There is no displaced calvarial fracture. There is moderate diffuse cerebral volume loss. There is a age indeterminate linear lacunar infarctio n within the right cerebellar hemisphere on image 10 measuring 6 mm, new. There is encephalomalacia w ithin the frontal lobe posteriorly on the right consistent with prior right side MCA insult. No intra cranial hemorrhage, midline shift, or mass effect. There is atherosclerotic calcification of the cave rnous carotid arteries and the distal vertebral arteries. There is extensive white matter hypodensity suggesting small vessel disease. IMPRESSION: Small vessel disease, age indeterminate ischemia as above. No intracranial hemorrhage. If there is cl inical concern for an acute infarction, followup brain MRI recommended. POS: [facility]
[2018-05-07] MEDS ORDERED: CEFEPIME IVPB PRN (02:04)
[2018-05-07] MEDS ORDERED: VANCOMYCIN IVPB PRN (02:04)
[2018-05-07] MEDS ORDERED: Ondansetron HCl/PF 4 MG/2 ML Vial IVP PRN (02:05)
[2018-05-07] MEDS ORDERED: Bisacodyl 10 MG SUPP PR PRN (02:08)
[2018-05-07 03:35] VITALS: BMI 22.6
[2018-05-07] MEDS: Cefepime 1 GM in Sodium Chloride 0.9% 100 ML IVPB SCH ×3 (03:47→20:25)
[2018-05-07] MEDS ORDERED: cloNIDine 0.1mg/24 Hour PATCH TD SCH ×2 (06:00)
[2018-05-07 06:20] LABS: #Lymphocytes 1.5 thou/uL (1.20-3.40); #Monocytes 0.7 thou/uL (0.11-0.59); #Neutrophils 9.2 thou/uL (1.40-6.50); %Eosinophils 0.2 % (0.0-10.0); %Lymphocytes 12.7 % (21.0-51.0); %Monocytes 6.5 % (0.0-10.0); %Neutrophils 80.7 % (42.0-75.0); Hemoglobin 9.7 g/dL (14.0-18.0); Mean Corpuscular HGB CONC 33.4 g/dL (32.0-36.0); Mean Corpuscular Hemoglobin 34.1 pg (27.0-31.0); Mean Platelet Volume 8.8 fL (7.4-10.4); Platelet Count 210 thou/uL (130-400); RBC Distribution Width 12.9 % (11.5-14.5); Red Blood Cell (RBC) Count 2.83 mill/uL (4.70-6.10); White Blood Cell (WBC) Count 11.5 thou/uL (4.8-10.8)
[2018-05-07 06:39] LABS: ALT (SGPT) 15 U/L (8-55); AST (SGOT) 20 U/L (5-34); Albumin 2.9 g/dL (3.4-4.8); Alkaline Phosphatase 79 U/L (40-150); Anion Gap 12 mmol/L (10-20); BUN (Urea Nitrogen) 27 mg/dL (8.4-25.7); Bilirubin, Total 0.6 mg/dL (0.2-1.2); Calc. Creatinine Clearance 87 mL/min (70-130); Calcium 8.9 mg/dL (7.8-10.44); Carbon Dioxide 25 mmol/L (23-31); Chloride 100 mmol/L (98-107); Estimated GFR-MDRD 85; Globulin 2.7 g/dL (2.4-3.5); Glucose 111 mg/dL (83-110); Potassium 4.2 mmol/L (3.5-5.1); Protein, Total 5.6 g/dL (5.8-8.1); Sodium 133 mmol/L (136-145)
[2018-05-07] MEDS: Mometasone/Formoterol 120 PUFF INHALER INH SCH ×2 (08:00→18:25)
[2018-05-07] MEDS ORDERED: Prevnar 13-Val Conj/PF 0.5 ML SYRINGE IM ONE (09:00)
[2018-05-07] MEDS ORDERED: LYCOP PO SCH (09:00)
[2018-05-07] MEDS ORDERED: FOLIC PO SCH (09:00)
[2018-05-07] MEDS ORDERED: MULTIVIT MINS PO SCH (09:00)
[2018-05-07] MEDS ORDERED: IRON PO SCH (09:00)
[2018-05-07] MEDS: Saccharomyces boulardii 250 MG CAP PO SCH (10:51)
[2018-05-07] MEDS: Multivitamin W/ Minerals 1 TAB PO SCH (10:52)
[2018-05-07] MEDS: Folic Acid 1 MG TAB PO SCH (10:52)
[2018-05-07] MEDS: Furosemide 40 MG TAB PO SCH (10:52)
[2018-05-07] MEDS: Famotidine/PF 20 mg/2ml Vial SLOW IVP SCH ×2 (10:52→20:25)
[2018-05-07] MEDS: Enoxaparin Sodium 40 MG/0.4 ML SYRINGE SC SCH (10:53)
[2018-05-07] MEDS: Vancomycin HCl 1.5 GM in Sodium Chloride 0.9% 250 ML 300 ML IVPB SCH (14:53)
[2018-05-07] MEDS: Acetaminophen 325 MG TAB PO PRN (20:43)
[2018-05-07] MEDS: Insulin Glargine 18 UNITS in Pre-Filled Syringe 1 EACH SC SCH (20:52)
[2018-05-07] MEDS ORDERED: Nystatin Powder 15 GM BOT TOP PRN (21:00)
[2018-05-07] MEDS ORDERED: INSULIN DETEMIR SQ SCH (21:00)
[2018-05-08] MEDS: Vancomycin HCl 1.5 GM in Sodium Chloride 0.9% 250 ML 300 ML IVPB SCH ×2 (01:46→14:09)
[2018-05-08] MEDS: Cefepime 1 GM in Sodium Chloride 0.9% 100 ML IVPB SCH ×3 (03:27→20:44)
[2018-05-08] MEDS: Mometasone/Formoterol 120 PUFF INHALER INH SCH ×2 (06:53→18:07)
[2018-05-08] MEDS: Famotidine/PF 20 mg/2ml Vial SLOW IVP SCH ×2 (09:27→20:44)
[2018-05-08] MEDS: Saccharomyces boulardii 250 MG CAP PO SCH (09:28)
[2018-05-08] MEDS: Folic Acid 1 MG TAB PO SCH (09:28)
[2018-05-08] MEDS: Multivitamin W/ Minerals 1 TAB PO SCH (09:28)
[2018-05-08] MEDS: Furosemide 40 MG TAB PO SCH (09:28)
[2018-05-08] MEDS: Enoxaparin Sodium 40 MG/0.4 ML SYRINGE SC SCH (09:34)
[2018-05-08 13:32] LABS: Vancomycin, Trough 19.3 ug/mL
--- NOTE | 2018-05-08 15:46 | PDOC.PN ---
- Subjective Encounter Start Date: 05/08/18 Encounter Start Time: 16:00 -: old records requested/rev pt seen and examined, chart reviewed in its entirety, this si my first visit with this patient No F/C, no N/V/D/C, +CP with coughing, + LIU, no orthopnea All systems reviewed and neg x as above - Objective Resuscitation Status: Resuscitation Status FULL:Full Resuscitation MAR Reviewed: Yes Vital Signs & Weight: Vital Signs (12 hours) Temp Pulse Resp BP Pulse Ox 05/08/18 11:30 97.5 F L 74 18 170/94 H 98 05/08/18 08:00 98 05/08/18 07:25 97.9 F 72 20 178/71 H 98 05/08/18 06:53 73 16 97 05/08/18 04:00 97.7 F 62 18 153/83 H 98 Weight Weight 191 lb 5 oz I&O: 05/07/18 05/08/18 05/09/18 06:59 06:59 06:59 Intake Total 320 750 Balance 320 750 Result Diagrams: 05/07/18 05:55 05/07/18 05:54 Additional Labs: Accuchecks 05/08/18 05/08/18 05/07/18 11:27 04:36 20:03 POC Glucose 117 H 90 79 05/07/18 05/07/18 05/07/18 16:31 11:37 04:43 POC Glucose 102 92 132 H Radiology Reviewed by me: Yes EKG Reviewed by me: Yes Phys Exam - Physical Examination Constitutional: NAD HEENT: PERRLA, moist MMs, sclera anicteric, oral pharynx no lesions Neck: no nodes, no JVD, supple, full ROM Cardiovascular: RRR, no significant murmur, no rub Gastrointestinal: soft, non-tender, no distention, positive bowel sounds Musculoskeletal: no edema Neurological: non-focal, normal sensation, moves all 4 limbs Lymphatic: no nodes Psychiatric: normal affect Skin: no rash Dx/Plan (1) HCAP (healthcare-associated pneumonia) Code(s): J18.9 - PNEUMONIA, UNSPECIFIED ORGANISM Status: Acute Comment: right ML, continue abx, resp therapy treatments (2) Chronic diastolic CHF (congestive heart failure) Code(s): I50.32 - CHRONIC DIASTOLIC (CONGESTIVE) HEART FAILURE Status: Chronic (3) Paroxysmal atrial fibrillation Code(s): I48.0 - PAROXYSMAL ATRIAL FIBRILLATION Status: Chronic Comment: No anticoagulation due to ICH (4) CAD (coronary artery disease) Code(s): I25.10 - ATHSCL HEART DISEASE OF [place] CORONARY ARTERY W/O ANG PCTRS Status: Chronic Qualifiers: Coronary Disease-Associated Artery/Lesion type: [place] artery [place] vs. transplanted heart: [place] heart Associated angina: without angina Qualified Code(s): I25.10 - Atherosclerotic heart disease of [place] coronary artery without angina pectoris (5) COPD (chronic obstructive pulmonary disease) Status: Chronic Qualifiers: COPD type: COPD with acute exacerbation Qualified Code(s): J44.1 - Chronic obstructive pulmonary disease with (acute) exacerbation (6) DM type 2 (diabetes mellitus, type 2) Status: Chronic Qualifiers: Diabetes mellitus penitentiary insulin use: without director of transportation use Diabetes mellitus complication status: with unspecified complications Qualified Code(s) : E11.8 - Type 2 diabetes mellitus with unspecified complications (7) Dyslipidemia Code(s): E78.5 - HYPERLIPIDEMIA, UNSPECIFIED Status: Chronic - Plan cont current plan of care, continue antibiotics, PT/OT, nursing home social worker, respiratory therapy, out of bed/ambulate * .
[2018-05-08] MEDS ORDERED: Metoprolol Tartrate 50 MG TAB PO SCH (17:15)
[2018-05-08] MEDS: hydrALAZINE 20 MG/ML VIAL SLOW IVP PRN (19:08)
[2018-05-08] MEDS: Insulin Glargine 18 UNITS in Pre-Filled Syringe 1 EACH SC SCH (20:44)
[2018-05-08] MEDS: Acetaminophen 325 MG TAB PO PRN (20:45)
[2018-05-08] MEDS: Lisinopril 20 MG TAB PO SCH (20:45)
[2018-05-08] MEDS: hydrALAZINE 25 MG TAB PO SCH (20:45)
[2018-05-09] MEDS: Vancomycin HCl 1.5 GM in Sodium Chloride 0.9% 250 ML 300 ML IVPB SCH ×2 (02:20→14:48)
[2018-05-09] MEDS: Cefepime 1 GM in Sodium Chloride 0.9% 100 ML IVPB SCH ×3 (04:24→20:30)
[2018-05-09 05:26] LABS: #Basophils 0.1 thou/uL (0.0-0.2); #Eosinphils 0.2 thou/uL (0.0-0.7); #Lymphocytes 2.1 thou/uL (1.20-3.40); #Neutrophils 5.2 thou/uL (1.40-6.50); %Basophils 0.6 % (0.0-1.0); %Eosinophils 2.3 % (0.0-10.0); %Lymphocytes 24.7 % (21.0-51.0); %Monocytes 11.4 % (0.0-10.0); Hemoglobin 10.1 g/dL (14.0-18.0); Mean Corpuscular HGB CONC 32.8 g/dL (32.0-36.0); Mean Corpuscular Hemoglobin 33.4 pg (27.0-31.0); Mean Platelet Volume 8.4 fL (7.4-10.4); Platelet Count 217 thou/uL (130-400); RBC Distribution Width 12.7 % (11.5-14.5); Red Blood Cell (RBC) Count 3.03 mill/uL (4.70-6.10); White Blood Cell (WBC) Count 8.5 thou/uL (4.8-10.8)
[2018-05-09 05:38] LABS: Anion Gap 14 mmol/L (10-20); BUN (Urea Nitrogen) 17 mg/dL (8.4-25.7); Calc. Creatinine Clearance 105 mL/min (70-130); Calcium 8.7 mg/dL (7.8-10.44); Carbon Dioxide 25 mmol/L (23-31); Chloride 100 mmol/L (98-107); Estimated GFR-MDRD Greater than 90; Glucose 84 mg/dL (83-110); Potassium 3.2 mmol/L (3.5-5.1); Sodium 136 mmol/L (136-145)
[2018-05-09] MEDS: Mometasone/Formoterol 120 PUFF INHALER INH SCH ×2 (06:38→19:24)
[2018-05-09] MEDS: Lisinopril 20 MG TAB PO SCH ×2 (08:14→20:36)
[2018-05-09] MEDS: Enoxaparin Sodium 40 MG/0.4 ML SYRINGE SC SCH (08:14)
[2018-05-09] MEDS: Famotidine/PF 20 mg/2ml Vial SLOW IVP SCH ×2 (08:15→20:33)
[2018-05-09] MEDS: Folic Acid 1 MG TAB PO SCH (08:15)
[2018-05-09] MEDS: Furosemide 40 MG TAB PO SCH (08:15)
[2018-05-09] MEDS: hydrALAZINE 25 MG TAB PO SCH ×2 (08:16→20:35)
[2018-05-09] MEDS: Multivitamin W/ Minerals 1 TAB PO SCH (08:17)
[2018-05-09] MEDS: Saccharomyces boulardii 250 MG CAP PO SCH (08:17)
[2018-05-09] MEDS ORDERED: Non-Formulary Item 1 EACH (Metoprolol Succinate [Metoprolol Succinate] 200 MG) PO SCH (09:00)
--- NOTE | 2018-05-09 09:04 | HP ---
CHIEF COMPLAINT: Fever. HISTORY OF PRESENT ILLNESS: This is a 78-year-old male with past medical history of stroke with resi dual right-sided weakness, COPD, diastolic heart failure with ejection fraction of 57%, coronary gwen ry disease status post stent, diabetes mellitus type 2, hypertension presenting with fever, which sta rted at the [facility]. Per records, AUDIT MANAGER had called stating the patient was diaphoretic, not speaking, staring off into space. Therefore, the EMS was called to bring the patient to our ED. Pe r EMS report, the patient was last seen normal at 2100 on the day of admission and en route to the [facility], the patient was febrile. In addition, detention reports the patient has sacral pain, coug h, and congestion. REVIEW OF SYSTEMS: The patient denies chest pain, headache, cough, fevers, but endorses mild pain wi th palpation at the lower extremity. All other systems were reviewed and are negative. PAST MEDICAL HISTORY: Positive for CVA, diabetes mellitus type 2, hypertension, hyperlipidemia, CHF, COPD FAMILY HISTORY: Noncontributory. SURGICAL HISTORY: CABG, status post 3 stents, appendectomy, cholecystectomy, bilateral cataract repa ir, history of polyps removal via colonoscopy. PSYCHIATRIC HISTORY: No previous psychiatric history. SOCIAL HISTORY: The patient lives in a detention. Denies any history of smoking history. Denies any alcohol use. FAMILY HISTORY: Reviewed and noncontributory to this case. ALLERGIES: No known drug allergies. MEDICATIONS: 1. Acetaminophen 325 mg. 2. Aspirin 81 mg. 3. Folic acid. 4. Furosemide 40 mg. 5. Lisinopril 20 mg. 6. Loratadine. 7. Metformin. 8. Metoprolol 100 mg. 9. Atorvastatin 40 mg. 10. Clonidine 0.1 mg. 11. Coenzyme Q. 12. Dulera. 13. Floranex. 14. Hydralazine 100 mg t.i.d. 15. DuoNebs 16. Isosorbide mononitrate. 17. Linzess. 18. Meclizine 12.5 mg. 19. Metoclopramide 5 mg 20. Milk of magnesia. 21. Multivitamins. 22. Potassium chloride. 23. Protonix. 24. Ranexa. 25. Robitussin. PHYSICAL EXAMINATION: VITAL SIGNS: Blood pressure 142/78, pulse 108, respiratory rate of 24, O2 saturation of 98 on room a ir. GENERAL: The patient is lying in bed, alert, oriented x3, able to state his name, the year and the p resident of the [facility] . HEENT: Normocephalic, atraumatic. Pupils are equally round and react to light. Extraocular movemen ts are intact. No scleral icterus. NECK: The patient has mild JVD noted. Trachea is midline. Neck is supple. LUNGS: Clear to auscultation bilaterally. No wheezing, no rales, no rhonchi is appreciated.. CARDIOVASCULAR: Positive S1, S2, tachycardic. ABDOMEN: Mild tenderness with deep palpation. Positive bowel sounds in all quadrants. No pulsatile masses. No palpable masses. No guarding or rigidity noted. EXTREMITIES: The patient has a stage II cm sacral ulcer with skin breakdown, mild surrounding erythe ma. Upper extremities: The patient has left arm weakness and is contracted. Good pulses in the rad ial bilaterally. Lower extremities: Left lower extremity is contracted, and weak. Right leg is als o weak, but the patient is able to feel sensation with touch. No edema noted. NEUROLOGIC: Cranial nerves II-XII intact. There is weakness noted in the left upper extremity and l ower extremity bilaterally. The patient is alert, oriented x3. SKIN: Warm, dry, and intact except for sacral decubitus that was noted. PSYCHIATRIC: Normal affect, alert and oriented x3. IMAGING: EKG: Atrial fibrillation with rapid ventricular response noted. CT of the head: No intracranial pathology noted. Chest x-ray showed right middle lobe pneumonia. ED COURSE: The patient was given vancomycin, Zosyn, Zofran IV. LABORATORY DATA: WBC 13.4, hemoglobin 10.3, hematocrit 31.1%, platelet count of 152. Sodium of 133, potassium of 4.5, chloride is 100, carbon dioxide 22, anion gap of 16, BUN 27, creatinine 0.86. ASSESSMENT AND PLAN: A 78-year-old male being admitted for sepsis secondary to right middle lobe pne [facility] [place] ( ). At this point, the patient has been started on vancomycin. We will add cefepime and we will continue the current medication. We will give gentle hydration. We will give Tylenol for f ever. We have sent cultures and will follow up on cultures. We will continue to manage the patient. 2. Stage II sacral decubitus, at this point, area does not look infected. We will continue to monit or the patient and reposition the patient. 3. History of diabetes mellitus type 2. We do insulin sliding scale. We will keep the patient's gl ucose between at 140-180. 4. Hypertension. We will monitor the patient's blood pressure closely. I will give the patient blo od pressure medication as needed. We will start the patient on his home medication. 5. History of chronic obstructive pulmonary disease exacerbation. The patient is currently stable. We will monitor the patient. We will continue the patient on DuoNeb treatment. We will continue an tibiotics. 6. History of congestive heart failure with ejection fraction of about 50%, currently stable. We wi ll monitor the patient. Continue the patient on home medication. 7. Deep venous thrombosis and gastrointestinal prophylaxis This case has been dictated by Dr. Link Salguero on patient Melina Haas.
[2018-05-09] MEDS ORDERED: Magnesium Sulfate 4 GM in Sodium Chloride 0.9% 250 ML 250 ML IVPB SCH (12:00)
[2018-05-09] MEDS: Potassium Chloride 20 MEQ TAB PO SCH ×2 (13:24→17:35)
[2018-05-09 13:52] LABS: Vancomycin, Trough 27.4 ug/mL
[2018-05-09] MEDS: hydrALAZINE 20 MG/ML VIAL SLOW IVP PRN (19:01)
[2018-05-09] MEDS: Insulin Glargine 18 UNITS in Pre-Filled Syringe 1 EACH SC SCH (20:42)
--- NOTE | 2018-05-09 23:06 | PDOC.PN ---
- Subjective Encounter Start Date: 05/09/18 Encounter Start Time: 18:15 Patient seen and examined for Sepsis. No new complaints. No overnight events - Objective Resuscitation Status: Resuscitation Status FULL:Full Resuscitation MAR Reviewed: Yes Vital Signs & Weight: Vital Signs (12 hours) Temp Pulse Resp BP BP Pulse Ox 05/09/18 20:36 187/74 H 05/09/18 20:35 71 187/74 H 05/09/18 20:00 97.8 F 71 16 187/74 H 98 05/09/18 19:24 73 16 99 05/09/18 19:01 62 05/09/18 17:30 172/76 H 05/09/18 16:00 97.4 F L 62 14 174/69 H 99 05/09/18 12:57 97.6 F 71 14 141/69 H 98 Weight Weight 191 lb 5 oz I&O: 05/08/18 05/09/18 05/10/18 06:59 06:59 06:59 Intake Total 750 1600 Balance 750 1600 Result Diagrams: 05/09/18 04:18 05/09/18 04:18 Additional Labs: Accuchecks 05/09/18 05/09/18 05/09/18 16:17 12:54 04:56 POC Glucose 104 122 H 90 Phys Exam - Physical Examination Constitutional: NAD Respiratory: no wheezing, no rhonchi Bibasilar rales Cardiovascular: RRR, no rub Gastrointestinal: soft, non-tender, positive bowel sounds Musculoskeletal: no edema Neurological: moves all 4 limbs Dx/Plan - Plan DVT proph w/lovenox, DVT proph w/SCDs IMPRESSION: 1. Sepsis due to HCAP ?Aspiration 2. Hypokalemia/ Hypomagnesaemia 3. CAD s/p CABG 4. DM2 5. HTN/ HLD/ Chronic diastolic HF PLAN: Cont Cefepime/Vancomycin Replace Potassium and Magnessium Blood cultures neg Cont other meds as below Review of Systems - Review of Systems Cardiovascular: negative: chest pain, palpitations, orthopnea, paroxysmal nocturnal dyspnea, edema, light headedness, other Gastrointestinal: negative: Nausea, Vomiting, Abdominal Pain, Diarrhea, Constipation, Melena, Hematochezia, Other - Medications/Allergies Allergies/Adverse Reactions: Allergies Allergy/AdvReac Type Severity Reaction Status Date / Time No Known Allergies Allergy Verified 10/12/17 04:48 Medications: Current Medications Acetaminophen (Tylenol) 650 mg PO Q4H PRN PRN Reason: Headache/Fever/Mild Pain (1-3) Last Admin: 05/08/18 20:45 Dose: 650 mg Bisacodyl (Dulcolax) 10 mg [place] DAILYPRN PRN PRN Reason: Constipation Clonidine ([id number] Patch) 0.1 mg TD Q7D [facility] Last Admin: 05/07/18 06:24 Dose: 0.1 mg Enoxaparin Sodium (Lovenox) 40 mg SC 0900 [facility] Last Admin: 05/09/18 08:14 Dose: 40 mg Famotidine (Pepcid) 20 mg SLOW IVP Q12HR [facility] Last Admin: 05/09/18 20:33 Dose: 20 mg Folic Acid (Folvite) 1 mg PO DAILY [facility] Last Admin: 05/09/18 08:15 Dose: 1 mg Furosemide (Lasix) 40 mg PO DAILY [facility] Last Admin: 05/09/18 08:15 Dose: 40 mg Hydralazine HCl (Apresoline) 10 mg SLOW IVP Q3H PRN PRN Reason: SBP Greater Than 170 Last Admin: 05/09/18 19:01 Dose: 10 mg Hydralazine HCl (Apresoline) 100 mg PO BID [facility] Last Admin: 05/09/18 20:35 Dose: 100 mg Insulin Glargine 18 units/ (Miscellaneous Medication) 0.18 mls @ 0 mls/hr SC HS [facility] Last Admin: 05/09/18 20:42 Dose: 0.18 mls Cefepime HCl 1 gm/ Sodium (Chloride) 100 mls @ 200 mls/hr IVPB 0400,1200,2000 [facility] Last Admin: 05/09/18 20:30 Dose: 100 mls Vancomycin HCl 1 gm/ Device 200 mls @ 200 mls/hr IVPB 0200,1400 [facility] Iron/Minerals/Multivitamins (Theragran M) 1 tab PO DAILY [facility] Last Admin: 05/09/18 08:17 Dose: 1 tab Isosorbide Mononitrate (Imdur) 60 mg PO DAILY [facility] Last Admin: 05/09/18 08:17 Dose: 60 mg Lisinopril (Zestril) 20 mg PO BID [facility] Last Admin: 10/08/18 20:36 Dose: 20 mg Metoprolol Succinate (Toprol Xl) 200 mg PO DAILY [facility] Last Admin: 05/09/18 08:17 Dose: 200 mg Miscellaneous Medication (Pharmacy To Dose) 1 each IVPB PRN PRN PRN Reason: Pharmacy to dose Mometasone Furoate/Formoterol Fumar (Dulera 200 Mcg/5 Mcg Inhaler) 1 puff INH BID-RT [facility] Last Admin: 05/09/18 19:24 Dose: 1 puff Nystatin (Mycostatin Powder) 0 gm TOP TID PRN PRN Reason: Topical Irritations Last Admin: 05/09/18 08:24 Dose: 1 applic Ondansetron HCl (Zofran) 4 mg IVP Q6H PRN PRN Reason: Nausea/Vomiting Potassium Chloride (K-Dur) 20 meq PO TID-[facility] Last Admin: 05/09/18 17:35 Dose: 20 meq Ranolazine (Ranexa) 1,000 mg PO BID [facility] Last Admin: 05/09/18 20:37 Dose: 1,000 mg Saccharomyces Boulardii (Florastor) 250 mg PO DAILY [facility] Last Admin: 05/09/18 08:17 Dose: 250 mg Sodium Chloride (Flush - Normal Saline) 10 ml IVF Q12HR PRN PRN Reason: Saline Flush Last Admin: 05/07/18 20:52 Dose: 10 ml Sodium Chloride (Flush - Normal Saline) 10 ml IVF PRN PRN PRN Reason: Saline Flush Last Admin: 05/08/18 03:29 Dose: 10 ml
[2018-05-10] MEDS: Vancomycin HCl 1 GM in Premix Bag 1 BAG IVPB SCH ×2 (01:04→13:25)
[2018-05-10] MEDS: Cefepime 1 GM in Sodium Chloride 0.9% 100 ML IVPB SCH ×2 (03:06→11:12)
[2018-05-10 05:10] LABS: Anion Gap 13 mmol/L (10-20); BUN (Urea Nitrogen) 14 mg/dL (8.4-25.7); Calc. Creatinine Clearance 103 mL/min (70-130); Calcium 8.6 mg/dL (7.8-10.44); Carbon Dioxide 23 mmol/L (23-31); Chloride 102 mmol/L (98-107); Estimated GFR-MDRD Greater than 90; Glucose 61 mg/dL (83-110); Magnesium 1.9 mg/dL (1.6-2.6); Potassium 3.5 mmol/L (3.5-5.1); Sodium 134 mmol/L (136-145)
[2018-05-10] MEDS: Mometasone/Formoterol 120 PUFF INHALER INH SCH ×2 (07:19→19:08)
[2018-05-10] MEDS: Potassium Chloride 20 MEQ TAB PO SCH ×3 (08:53→17:54)
[2018-05-10] MEDS: Enoxaparin Sodium 40 MG/0.4 ML SYRINGE SC SCH (08:53)
[2018-05-10] MEDS: Famotidine 20 MG TAB PO SCH ×2 (08:54→20:59)
[2018-05-10] MEDS: Folic Acid 1 MG TAB PO SCH (08:54)
[2018-05-10] MEDS: Furosemide 40 MG TAB PO SCH (08:54)
[2018-05-10] MEDS: hydrALAZINE 25 MG TAB PO SCH ×2 (08:54→21:04)
[2018-05-10] MEDS: Lisinopril 20 MG TAB PO SCH ×2 (08:55→20:58)
[2018-05-10] MEDS: Multivitamin W/ Minerals 1 TAB PO SCH (08:56)
[2018-05-10] MEDS: Saccharomyces boulardii 250 MG CAP PO SCH (08:56)
--- NOTE | 2018-05-10 11:59 | PDOC.EVN ---
Event Note - Event Note Event Note: PCP Dr Ladd. Residents to assume care from today.
--- NOTE | 2018-05-10 13:31 | PDOC.FM ---
- Subjective Subjective: Today patient states he is feeling well. He is AxOx3. He states he feels about the same as when he came in to the hospital on Wednesday, but his states he looks leaps and bounds better. She states he is more responsive and alert during the days. Patient states he does not like the taste of his medicines otherwise he is having no issues. He denies cough or dyspnea. - Objective Vital Signs & Weight: Vital Signs (12 hours) Temp Pulse Resp BP BP Pulse Ox 05/10/18 12:00 98.3 F 70 16 160/84 H 100 05/10/18 08:55 152/74 H 05/10/18 08:54 66 152/74 H 05/10/18 08:00 98 05/10/18 07:58 97.7 F 66 16 152/74 H 98 05/10/18 07:19 78 16 98 Weight Weight 86.778 kg I&O: 05/09/18 05/10/18 05/11/18 06:59 06:59 06:59 Intake Total 2039 Balance 2039 Result Diagrams: 05/09/18 04:18 05/10/18 04:13 <Gee Leigh - Last Filed: 05/10/18 13:30> - Objective Vital Signs & Weight: Vital Signs (12 hours) Temp Pulse Resp BP BP Pulse Ox 05/11/18 08:00 97 05/11/18 07:50 97.9 F 71 16 187/74 H 97 05/11/18 07:40 161/82 H 05/11/18 07:39 73 05/11/18 06:48 73 16 98 Weight Weight 86.778 kg I&O: 05/10/18 05/11/18 05/12/18 06:59 06:59 06:59 Intake Total 2039 120 Balance 2039 120 Result Diagrams: 05/09/18 04:18 05/10/18 04:13 <Dylon Fitzgerald - Last Filed: 05/11/18 10:27> Phys Exam - Physical Examination Constitutional: NAD HEENT: PERRLA, moist MMs Neck: no nodes, no JVD Respiratory: no wheezing, clear to auscultation bilateral Cardiovascular: RRR, no significant murmur Gastrointestinal: soft, non-tender, no distention, positive bowel sounds Musculoskeletal: pulses present trace edema bilaterally Patient has chronic rt sided weakness, at baseline per Psychiatric: A&O x 3 Skin: no rash, cap refill <2 seconds <Gee Leigh - Last Filed: 05/10/18 13:30> Dx/Plan (1) HCAP (healthcare-associated pneumonia) Code(s): J18.9 - PNEUMONIA, UNSPECIFIED ORGANISM Status: Acute (2) Chronic diastolic CHF (congestive heart failure) Code(s): I50.32 - CHRONIC DIASTOLIC (CONGESTIVE) HEART FAILURE Status: Chronic (3) A-fib Code(s): I48.91 - UNSPECIFIED ATRIAL FIBRILLATION Status: Acute Qualifiers: Atrial fibrillation type: paroxysmal Qualified Code(s): I48.0 - Paroxysmal atrial fibrillation (4) Acute hypoxemic respiratory failure Code(s): J96.01 - ACUTE RESPIRATORY FAILURE WITH HYPOXIA Status: Acute (5) DM type 2 (diabetes mellitus, type 2) Status: Chronic Qualifiers: Diabetes mellitus halfway insulin use: without halfway use Diabetes mellitus complication status: with unspecified complications Qualified Code(s) : E11.8 - Type 2 diabetes mellitus with unspecified complications (6) Hypertension Code(s): I10 - ESSENTIAL (PRIMARY) HYPERTENSION Status: Chronic - Plan Plan: # Sepsis 2/2 PNA - on broad-spectrum abx since 05/07 - afebrile throughout admission - Pulse and RR WNL, no distress - plan for D/c home w/ 2 more days of levoquin to complete 5 day course - swallow study at 1330 today to evaluate for aspiration and modify diet accordingly # Hx Rt CVA - brain CT shows age indeterminate infarct on 05/07 - will forego Brain MRI at this time b/c would not 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 Leigh yesterday. I agree with the History, Examination, Assessment and Plan documented above with any addition or exceptions noted below. <Dylon Fitzgerald - Last Filed: 05/11/18 10:27>
--- NOTE | 2018-05-10 14:11 | PDOC.EVN ---
Event Note - Event Note Event Note: Patient cannot be discharged today because needs PT/OT eval before the [facility] in [place] will accept. These are ordered. Awaiting placement, likely to occur tomorrow
--- NOTE | 2018-05-10 15:45 | RAD ---
MODIFIED BARIUM SWALLOW: INDICATIONS: Dysphagia and feeding difficulties, intracerebral etiology. TECHNIQUE: The patient was given different consistencies of barium, under fluoroscopic observation, to assess sw allowing. FINDINGS: Moderately severe swallowing dysfunction. Difficulty forming a bolus with significant oral phase dys function. Premature spillage and pooling. There is prompt laryngeal penetration and possible mild a spiration with thin liquids. Probable repeated penetration with thickened liquids and pudding. See speech pathologist's recommendation. POS: [facility]
[2018-05-10] MEDS: hydrALAZINE 20 MG/ML VIAL SLOW IVP PRN (18:59)
[2018-05-10] MEDS ORDERED: Insulin Glargine 10 UNITS in Pre-Filled Syringe 1 EACH SC SCH (21:00)
[2018-05-11] MEDS: Mometasone/Formoterol 120 PUFF INHALER INH SCH (06:48)
[2018-05-11] MEDS: Enoxaparin Sodium 40 MG/0.4 ML SYRINGE SC SCH (07:37)
[2018-05-11] MEDS: hydrALAZINE 25 MG TAB PO SCH (07:39)
[2018-05-11] MEDS: Famotidine 20 MG TAB PO SCH (07:40)
[2018-05-11] MEDS: Furosemide 40 MG TAB PO SCH (07:40)
[2018-05-11] MEDS: Saccharomyces boulardii 250 MG CAP PO SCH (07:40)
[2018-05-11] MEDS: Folic Acid 1 MG TAB PO SCH (07:40)
[2018-05-11] MEDS: Multivitamin W/ Minerals 1 TAB PO SCH (07:40)
[2018-05-11] MEDS: Lisinopril 20 MG TAB PO SCH (07:40)
[2018-05-11 07:51] VITALS: TEMP 97.9
--- NOTE | 2018-05-11 08:19 | PDOC.EVN ---
Attending Addendum - Attending Addendum Date/Time: 05/11/18 0962 I personally evaluated the patient and discussed the management with Dr. Leigh. I agree with the History, Examination, Assessment and Plan documented above with any addition or exceptions noted below. Patient transferred to our care yesterday by [facility] due to patient's PCP hospital coverage. He has been admitted for presumed Pneumonia obtained in a longterm facility and possibly complicated by aspiration due to his history of CVA with residual deficits. He was overall stable for discharge yesterday but accepting facility needed therapy consultations. Those have been obtained. He did have MBS yesterday which showed significant swallowing issues and propensity to aspirate. DETECTIVE SUPERVISOR recommended no safe diet yesterday. We will need to clarify his diet going forward this morning, and possibly discuss "comfort feeds " with family or else he may need more invasive methods of instituting nutrition unless ST can qualify for advancing diet. Once this is finalized, will work to discharge to placement facility. Will complete course of oral Levaquin.
--- NOTE | 2018-05-11 09:49 | PDOC.FM ---
- Subjective Subjective: This morning patient states he is feeling well. He denies SOB, chest pain, or cough. He still wants to go home. Discussed feeds with patient and he is not interested in PEG tube. - Objective Vital Signs & Weight: Vital Signs (12 hours) Temp Pulse Resp BP BP Pulse Ox 05/11/18 08:00 97 05/11/18 07:50 97.9 F 71 16 187/74 H 97 05/11/18 07:40 161/82 H 05/11/18 07:39 73 05/11/18 06:48 73 16 98 Weight Weight 86.778 kg I&O: 05/10/18 05/11/18 05/12/18 06:59 06:59 06:59 Intake Total 2039 120 Balance 2039 120 Result Diagrams: 05/09/18 04:18 05/10/18 04:13 Phys Exam - Physical Examination Constitutional: NAD HEENT: PERRLA, moist MMs Neck: no nodes Respiratory: no wheezing, clear to auscultation bilateral Cardiovascular: RRR, no significant murmur Gastrointestinal: soft, non-tender, no distention, positive bowel sounds Musculoskeletal: no edema, pulses present chronic R sided weakness Psychiatric: A&O x 3 Skin: no rash, cap refill <2 seconds Dx/Plan (1) HCAP (healthcare-associated pneumonia) Code(s): J18.9 - PNEUMONIA, UNSPECIFIED ORGANISM Status: Acute (2) Chronic diastolic CHF (congestive heart failure) Code(s): I50.32 - CHRONIC DIASTOLIC (CONGESTIVE) HEART FAILURE Status: Chronic (3) A-fib Code(s): I48.91 - UNSPECIFIED ATRIAL FIBRILLATION Status: Acute Qualifiers: Atrial fibrillation type: paroxysmal Qualified Code(s): I48.0 - Paroxysmal atrial fibrillation (4) Acute hypoxemic respiratory failure Code(s): J96.01 - ACUTE RESPIRATORY FAILURE WITH HYPOXIA Status: Acute (5) DM type 2 (diabetes mellitus, type 2) Status: Chronic Qualifiers: Diabetes mellitus halfway insulin use: without supervisor intermediates use Diabetes mellitus complication status: with unspecified complications Qualified Code(s) : E11.8 - Type 2 diabetes mellitus with unspecified complications (6) Hypertension Code(s): I10 - ESSENTIAL (PRIMARY) HYPERTENSION Status: Chronic - Plan Plan: # Sepsis 2/2 PNA - on broad-spectrum abx since 05/07 - afebrile throughout admission - Pulse and RR WNL, no distress - plan for D/c to SNF when placement obtained w/ levoquin # Goals of care - patient wants comfort feeds - patient expresses interest in hospice care - will f/u when family is present for further discussions, consult palliative # Hx Rt CVA - brain CT shows age indeterminate infarct on 05/07 - will forego Brain MRI at this time b/c 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
[2018-05-11] MEDS ORDERED: Fluconazole 100 MG TAB PO SCH (10:15)
[2018-05-11] MEDS: Acetaminophen 325 MG TAB PO PRN (10:46)
--- NOTE | 2018-05-11 10:56 | PDOC.EVN ---
Event Note - Event Note Event Note: Discussed hospice with patient and separately Patient failed swallow study Patient is not interested in PEG tube would prefer comfort feeds Patient states he feels "ready to ." He does not want heroic efforts, favors comfort cares. Patient's is in understanding She agrees that she wants to favor quality over quantity of life She tried caring for patient at home by herself in the past and this proved unsustainable She favors hospice services at [facility] consult placed
[2018-05-11 11:25] VITALS: BP 188/95
--- NOTE | 2018-05-12 03:38 | DIS-2 ---
DATE OF ADMISSION: 05/07/2018 DATE OF DISCHARGE: 05/11/2018 RESIDENT: Gee Leigh M.D. ATTENDING PHYSICIAN: Link Salguero D.O. DISCHARGE ATTENDING: Damion Ennis M.D. CONSULTATIONS: Hospice, Palliative Care, PT, ST. PROCEDURES: Modified barium swallow shows moderately severe swallowing dysfunction, difficulty formi ng bolus with significant dysfunction, probable repeated penetration with thickened liquids and pudding. PRIMARY DIAGNOSIS: Aspiration pneumonia. SECONDARY DIAGNOSES: History of cerebrovascular accident, chronic obstructive pulmonary disease, sep sis secondary to pneumonia, hypertension, diabetes mellitus, atrial fibrillation, hypokalemia. DISCHARGE MEDICATIONS: To be determined by hospice team. See discharge packet for medications he wa s sent home on. DISCONTINUED MEDICATIONS: None. HISTORY OF PRESENT ILLNESS AND HOSPITAL COURSE: This is a 78-year-old male who presented to the ED w ith fever from [facility]. patient was diaphoretic, not speaking and staring into space. EMS was called and brought the patient to the ED. The patient last seen normal at [address] of admission. The patient reported sacral pain, cough and congestion. The patient was treated adequately for aspiration pneumonia with vancomycin and cefepime. He had sac ral stage II decubitus ulcer at time of admission. Upon completion of modified barium swallow, lorena easley discussion was had with the patient and who is his POA. The patient and both decided shae t pursuit have a PEG tube was not in the patient's best interest and pursuit of comfort and quality o f life. [facility]. Out of hospital DN I was signed and confirmed in the hospital. Care of this patient was transferred from [facility] to [facility] on 05/10/2018. DISPOSITION: Guarded. DISCHARGE INSTRUCTIONS: 1. Location: [facility]. 2. Diet: Comfort feeds. 3. Activity: As tolerated. 4. Followup: Hospice care team, primary care physician, Dr. Deepak Ladd in 2-3 days.
[2018-05-12] MEDS ORDERED: Fluconazole 100 MG TAB PO SCH (09:00)
== END 2018-05-11 18:19 | DRG 871 ==
LOC: ERS 22:25 → T4-B 05-07 02:05
PROVIDERS: ADMIT Internal Medicine; ATTEND Internal Medicine
DX: A41.9 Sepsis, unspecified organism (principal); J69.0 Pneumonitis due to inhalation of food and vomit; J96.01 Acute respiratory failure with hypoxia; I50.32 Chronic diastolic (congestive) heart failure; J44.1 Chronic obstructive pulmonary disease with (acute) exacerbation; I69.351 Hemiplegia and hemiparesis following cerebral infarction affecting right dominant side; E87.6 Hypokalemia; E83.42 Hypomagnesemia; I25.10 Atherosclerotic heart disease of native coronary artery without angina pectoris; Z95.1 Presence of aortocoronary bypass graft; E11.9 Type 2 diabetes mellitus without complications; E78.5 Hyperlipidemia, unspecified; Z51.5 Encounter for palliative care; I11.0 Hypertensive heart disease with heart failure; I48.0 Paroxysmal atrial fibrillation; Z91.81 History of falling; L89.152 Pressure ulcer of sacral region, stage 2; L89.601 Pressure ulcer of unspecified heel, stage 1
CPT/HCPCS: 36415; 36416; 70450; 71045; 74230; 80048; 80053; 80202; 83605; 83735; 85025; 87040; 93005; 96365; 96375; G8981-GP-CM; G8982-GP-CK; G8987-GO-CL; G8988-GO-CL; G8989-GO-CL; G8996-GN-CK; G8996-GN-CL; G8996-GN-CN; G8997-GN-CI; G8997-GN-CL; J0360; J0692; J1650; J2405; J2543; J3370; J3475; J7050; S0028